=== PATIENT | male | born 1945 | race Caucasian/White ===

== ENCOUNTER 2018-01-06 13:34 | Inpatient (IN) | payer MEDICARE, OTHER ==
[~2018-01-06] VITALS: Ht 174 cm; Wt 71.0 kg
[2018-01-06 14:27] VITALS: BP 117/84
[2018-01-06] MEDS ORDERED: GLUCAGON 1 MG IM PRN (16:00)
[2018-01-06] MEDS ORDERED: LABETALOL 5MG/ML, 20ML IVPush PRN (16:00)
[2018-01-06] MEDS ORDERED: VANCOMYCIN PER PHARMACY MC PRN (16:00)
[2018-01-06] MEDS ORDERED: DOCUSATE 100 MG CAPSULE PO PRN (16:00)
[2018-01-06] MEDS ORDERED: BISACODYL 10 MG SUPP PR PRN (16:00)
[2018-01-06] MEDS ORDERED: POLYETHYLENE GLYCOL 17 GM PACKET PO PRN (16:00)
[2018-01-06] MEDS: PLEASE ENTER HEIGHT AND WEIGHT MC SCH ×2 (16:00→23:28)
[2018-01-06] MEDS ORDERED: DEXTROSE 50%, 50ML SYRINGE IVPush PRN (16:00)
[2018-01-06] MEDS: INSULIN LISPRO 100 UNITS/ML, PEN SQ-INSULIN SCH ×2 (16:00→22:28)
[2018-01-06] MEDS ORDERED: HYDROcodone/APAP 5/325 TABLET PO PRN (16:00)
[2018-01-06] MEDS ORDERED: SODIUM CHLORIDE 0.9% 1,000ML IVBOLUS ONE (16:00)
[2018-01-06] MEDS ORDERED: ONDANSETRON 2MG/ML, 2ML IVPush PRN (16:00)
[2018-01-06] MEDS: PLEASE ENTER ALLERGIES MC SCH ×2 (16:00→23:28)
[2018-01-06 16:24] LABS: MEAN CORPUSCULAR HEMOGLOBIN 32.5 pg (27.5-34.5); MEAN CORPUSCULAR HGB CONC 33.4 g/dL (33.2-36.2); MEAN CORPUSCULAR VOLUME 97.3 fL (81-97); MEAN PLATELET VOLUME 7.6 fL (7.4-10.4); PLATELET COUNT 229 x10^3/uL (130-400); RED BLOOD COUNT 3.63 x10^6/uL (4.38-5.82); RED CELL DISTRIBUTION WIDTH 13.4 % (9.4-14.8)
[2018-01-06 16:32] LABS: ANION GAP 5 mmol/L (5-15); CALCIUM 8.4 mg/dL (8.5-10.1); CHLORIDE 110 mmol/L (98-107); CREATININE 1.12 mg/dL (0.7-1.3)
[2018-01-06 16:42] LABS: BASOPHILS # (AUTO) 0.04 x10^3/uL (0-0.1); BASOPHILS % (AUTO) 0 % (0-1); EOSINOPHILS # (AUTO) 0.18 x10^3/uL (0-0.4); EOSINOPHILS % (AUTO) 1 % (1-7); LYMPHOCYTES # (AUTO) 1.05 x10^3/uL (1-3.4); LYMPHOCYTES % (AUTO) 6 % (22-44); MD SCAN; MONOCYTES # (AUTO) 1.84 x10^3/uL (0.2-0.8); MONOCYTES % (AUTO) 11 % (2-9); NEUTROPHILS # (AUTO) 14.32 x10^3/uL (1.8-6.8); NEUTROPHILS % (AUTO) 82 % (42-75)
[2018-01-06] MEDS ORDERED: PHARMACOKINETIC MONITORING MC PRN (17:00)
[2018-01-06] MEDS ORDERED: HEPARIN 25,000 UNITS/500ML PMX 500 ML IV PRN ×2 (17:00→18:19)
[2018-01-06] MEDS ORDERED: HEPARIN 5,000 UNITS/ML, 1ML IV ONE (17:00)
[2018-01-06] MEDS ORDERED: HEPARIN 5,000 UNITS/ML, 1ML IV PRN ×3 (17:00→18:20)
[2018-01-06] MEDS ORDERED: FURO-93 PO (17:01)
[2018-01-06] MEDS ORDERED: CHON400C PO (17:01)
[2018-01-06] MEDS ORDERED: VALS1TAB30 PO (17:01)
[2018-01-06] MEDS ORDERED: OMEG1CAP2 PO (17:01)
[2018-01-06] MEDS ORDERED: GLUC15006 PO (17:01)
[2018-01-06] MEDS ORDERED: MAGN400T26 PO (17:01)
[2018-01-06] MEDS ORDERED: ROSU10TA PO (17:01)
[2018-01-06] MEDS ORDERED: METH750T2 PO (17:01)
[2018-01-06] MEDS ORDERED: NAPR250T6 PO (17:01)
[2018-01-06] MEDS ORDERED: DOXY25TA18 PO (17:01)
[2018-01-06] MEDS ORDERED: MELA5TAB19 PO (17:01)
[2018-01-06] MEDS ORDERED: METO-99 PO (17:01)
[2018-01-06] MEDS ORDERED: LINA5TAB PO (17:01)
[2018-01-06] MEDS ORDERED: DICL100G19 TP (17:01)
[2018-01-06] MEDS ORDERED: RANI150T8 PO (17:01)
[2018-01-06] MEDS ORDERED: CALC300T5 PO (17:01)
[2018-01-06] MEDS ORDERED: OXYC-307 PO (17:01)
[2018-01-06] MEDS ORDERED: MULT-6 PO (17:01)
[2018-01-06] MEDS ORDERED: TROL85CR TP (17:03)
[2018-01-06 17:09] LABS: HCT (SEDRATE) 35.3 % (39.2-51.8)
[2018-01-06 17:32] LABS: HEMOGLOBIN A1C 8.9 % (4.2-6.3)
[2018-01-06] MEDS ORDERED: VANCOMYCIN 1,300 MG in SODIUM CHLORIDE 0.9% 250 ML IV SCH (18:00)
[2018-01-06] MEDS ORDERED: CALCIUM CARBONATE 500 MG TAB.CHEW PO PRN (18:30)
[2018-01-06] MEDS: OXYcodone/APAP 10/325MG TABLET PO PRN (18:45)
[2018-01-06] MEDS: SODIUM CHLORIDE 0.9% 1,000 ML IV SCH (19:59)
[2018-01-06] MEDS: PIPERACILLIN/TAZO/PMX 3.375GM 50 ML IV SCH (19:59)
[2018-01-06] MEDS ORDERED: CHONDROITIN SULFATE A SODIUM 1200 MG PO SCH (21:00)
[2018-01-06] MEDS: SODIUM CHLORIDE FLUSH 10ML SYR IVF SCH (21:00)
[2018-01-06 21:13] VITALS: BP 155/82
[2018-01-07] MEDS: MELATONIN 5 MG TABLET PO PRN ×2 (00:16→20:54)
[2018-01-07] MEDS: OXYcodone/APAP 10/325MG TABLET PO PRN ×3 (00:37→09:38)
[2018-01-07] MEDS ORDERED: DIPHENHYDRAMINE 25 MG CAPSULE PO ONE (01:00)
[2018-01-07 01:41] VITALS: BP 147/77
[2018-01-07] MEDS: PIPERACILLIN/TAZO/PMX 3.375GM 50 ML IV SCH ×4 (02:29→22:53)
[2018-01-07] MEDS ORDERED: HEPARIN 5,000 UNITS/ML, 1ML IV ONE (02:30)
[2018-01-07] MEDS ORDERED: HEPARIN 25,000 UNITS/500ML PMX 500 ML IV PRN (02:30)
[2018-01-07] MEDS ORDERED: HEPARIN 5,000 UNITS/ML, 1ML IV PRN (02:30)
[2018-01-07 02:43] LABS: MEAN CORPUSCULAR HEMOGLOBIN 32.4 pg (27.5-34.5); MEAN CORPUSCULAR HGB CONC 33.4 g/dL (33.2-36.2); MEAN CORPUSCULAR VOLUME 97.1 fL (81-97); MEAN PLATELET VOLUME 7.3 fL (7.4-10.4); PLATELET COUNT 223 x10^3/uL (130-400); RED BLOOD COUNT 3.33 x10^6/uL (4.38-5.82); RED CELL DISTRIBUTION WIDTH 13.6 % (9.4-14.8)
[2018-01-07 02:53] LABS: ALANINE AMINOTRANSFERASE 22 U/L (12-78); ALBUMIN 2.1 g/dL (3.4-5.0); ANION GAP 9 mmol/L (5-15); CALCIUM 8.1 mg/dL (8.5-10.1); CHLORIDE 112 mmol/L (98-107); CREATININE 0.98 mg/dL (0.7-1.3)
[2018-01-07 02:55] LABS: ALKALINE PHOSPHATASE 61 U/L (45-117); BILIRUBIN,TOTAL 0.4 mg/dL (0.2-1.0); TOTAL PROTEIN 5.9 g/dL (6.4-8.2)
[2018-01-07 03:20] LABS: BASOPHILS # (AUTO) 0.08 x10^3/uL (0-0.1); BASOPHILS % (AUTO) 1 % (0-1); EOSINOPHILS # (AUTO) 0.21 x10^3/uL (0-0.4); EOSINOPHILS % (AUTO) 1 % (1-7); LYMPHOCYTES # (AUTO) 0.84 x10^3/uL (1-3.4); LYMPHOCYTES % (AUTO) 5 % (22-44); MD SCAN; MONOCYTES # (AUTO) 1.48 x10^3/uL (0.2-0.8); MONOCYTES % (AUTO) 10 % (2-9); NEUTROPHILS # (AUTO) 13.06 x10^3/uL (1.8-6.8); NEUTROPHILS % (AUTO) 83 % (42-75)
[2018-01-07] MEDS ORDERED: LIDOCAINE 2%, 20ML ONE (06:59)
[2018-01-07] MEDS: INSULIN LISPRO 100 UNITS/ML, PEN SQ-INSULIN SCH ×4 (07:00→20:57)
[2018-01-07] MEDS ORDERED: HEPARIN 1,000 UNITS/ML, 10ML ONE (07:18)
[2018-01-07] MEDS ORDERED: NITROGLYCERIN 5 MG/ML, 10ML ONE (07:18)
[2018-01-07] MEDS ORDERED: NALOXONE 1 MG/ML, 2ML ONE (07:18)
[2018-01-07] MEDS ORDERED: PROTAMINE SULFATE 10 MG/ML, 25ML ONE (07:18)
[2018-01-07] MEDS ORDERED: FENTANYL PF 100 MCG/2ML ONE (07:18)
[2018-01-07] MEDS: PLEASE ENTER ALLERGIES MC SCH (08:00)
[2018-01-07] MEDS: PLEASE ENTER HEIGHT AND WEIGHT MC SCH (08:00)
[2018-01-07 08:08] VITALS: BP 122/70
[2018-01-07] MEDS ORDERED: ALTEPLASE 10 MG in SODIUM CHLORIDE 0.9% 90 ML IV SCH (08:30)
[2018-01-07] MEDS: METOPROLOL TARTRATE 100 MG TABLET PO SCH (09:38)
[2018-01-07] MEDS: MULTIVITAMIN 1 TABLET PO SCH (09:38)
[2018-01-07] MEDS: MAGNESIUM OXIDE 400 MG TABLET PO SCH (09:38)
[2018-01-07] MEDS: SODIUM CHLORIDE FLUSH 10ML SYR IVF SCH ×2 (09:42→20:54)
[2018-01-07] MEDS ORDERED: FAMOTIDINE 20 MG TABLET PO PRN ×2 (10:30)
[2018-01-07] MEDS ORDERED: HEPARIN 25,000 UNITS/500ML PMX 500 ML IV SCH (10:30)
[2018-01-07] MEDS: VALSARTAN 320 MG TABLET PO SCH (11:17)
[2018-01-07] MEDS: SODIUM CHLORIDE 0.9% 1,000 ML IV SCH ×2 (11:18→23:56)
[2018-01-07] MEDS: HYDROCHLOROTHIAZIDE 25 MG TABLET PO SCH (11:18)
[2018-01-07] MEDS: OXYcodone IR 5MG TABLET PO PRN ×2 (11:37→16:36)
[2018-01-07 11:59] LABS: MEAN CORPUSCULAR HEMOGLOBIN 32.5 pg (27.5-34.5); MEAN CORPUSCULAR VOLUME 98.3 fL (81-97); MEAN PLATELET VOLUME 7.4 fL (7.4-10.4); PLATELET COUNT 229 x10^3/uL (130-400); RED BLOOD COUNT 3.45 x10^6/uL (4.38-5.82); RED CELL DISTRIBUTION WIDTH 13.6 % (9.4-14.8)
[2018-01-07 12:51] LABS: BASOPHILS # (AUTO) 0.01 x10^3/uL (0-0.1); BASOPHILS % (AUTO) 0 % (0-1); EOSINOPHILS # (AUTO) 0.25 x10^3/uL (0-0.4); EOSINOPHILS % (AUTO) 2 % (1-7); LYMPHOCYTES # (AUTO) 1.21 x10^3/uL (1-3.4); LYMPHOCYTES % (AUTO) 8 % (22-44); MD SCAN; MONOCYTES # (AUTO) 1.63 x10^3/uL (0.2-0.8); MONOCYTES % (AUTO) 10 % (2-9); NEUTROPHILS # (AUTO) 12.93 x10^3/uL (1.8-6.8); NEUTROPHILS % (AUTO) 81 % (42-75)
[2018-01-07 16:08] LABS: MEAN CORPUSCULAR HEMOGLOBIN 32.4 pg (27.5-34.5); MEAN CORPUSCULAR HGB CONC 33.3 g/dL (33.2-36.2); MEAN CORPUSCULAR VOLUME 97.2 fL (81-97); MEAN PLATELET VOLUME 7.6 fL (7.4-10.4); PLATELET COUNT 238 x10^3/uL (130-400); RED BLOOD COUNT 3.42 x10^6/uL (4.38-5.82)
[2018-01-07 16:33] LABS: BASOPHILS # (AUTO) 0.04 x10^3/uL (0-0.1); BASOPHILS % (AUTO) 0 % (0-1); EOSINOPHILS # (AUTO) 0.29 x10^3/uL (0-0.4); EOSINOPHILS % (AUTO) 2 % (1-7); LYMPHOCYTES # (AUTO) 1.41 x10^3/uL (1-3.4); LYMPHOCYTES % (AUTO) 9 % (22-44); MD SCAN; MONOCYTES # (AUTO) 1.25 x10^3/uL (0.2-0.8); MONOCYTES % (AUTO) 8 % (2-9); NEUTROPHILS % (AUTO) 81 % (42-75)
[2018-01-07] MEDS: ALTEPLASE 10 MG in SODIUM CHLORIDE 0.9% 90 ML IV SCH (16:36)
[2018-01-07] MEDS ORDERED: MORPHINE SULFATE 4 MG/ML, 1ML ONE (18:21)
[2018-01-07] MEDS: MORPHINE SULFATE 4 MG/ML, 1ML IVPush PRN ×2 (18:29→21:38)
[2018-01-07] MEDS ORDERED: morphine SULFATE 10 MG/ML, 1ML IVPush PRN (18:30)
[2018-01-07] MEDS: ATORVASTATIN 20 MG TABLET PO SCH (20:54)
[2018-01-07] MEDS ORDERED: VANCOMYCIN 1,300 MG in SODIUM CHLORIDE 0.9% 250 ML IV SCH (21:00)
[2018-01-07 21:22] LABS: MEAN CORPUSCULAR HEMOGLOBIN 32.9 pg (27.5-34.5); MEAN CORPUSCULAR HGB CONC 33.9 g/dL (33.2-36.2); MEAN CORPUSCULAR VOLUME 97.2 fL (81-97); MEAN PLATELET VOLUME 7.7 fL (7.4-10.4); PLATELET COUNT 252 x10^3/uL (130-400); RED BLOOD COUNT 3.73 x10^6/uL (4.38-5.82); RED CELL DISTRIBUTION WIDTH 13.9 % (9.4-14.8)
[2018-01-07 21:38] LABS: BASOPHILS # (AUTO) 0.06 x10^3/uL (0-0.1); BASOPHILS % (AUTO) 0 % (0-1); EOSINOPHILS # (AUTO) 0.29 x10^3/uL (0-0.4); EOSINOPHILS % (AUTO) 2 % (1-7); LYMPHOCYTES # (AUTO) 1.28 x10^3/uL (1-3.4); LYMPHOCYTES % (AUTO) 8 % (22-44); MD SCAN; MONOCYTES # (AUTO) 1.45 x10^3/uL (0.2-0.8); MONOCYTES % (AUTO) 9 % (2-9); NEUTROPHILS # (AUTO) 12.86 x10^3/uL (1.8-6.8); NEUTROPHILS % (AUTO) 81 % (42-75)
[2018-01-07] MEDS: METHOCARBAMOL 750 MG TABLET PO PRN (22:11)
[2018-01-08] MEDS: OXYcodone IR 5MG TABLET PO PRN ×4 (00:49→19:45)
[2018-01-08] MEDS: ALTEPLASE 10 MG in SODIUM CHLORIDE 0.9% 90 ML IV SCH ×3 (02:13→23:00)
[2018-01-08 03:12] LABS: MEAN CORPUSCULAR HEMOGLOBIN 32.4 pg (27.5-34.5); MEAN CORPUSCULAR HGB CONC 33.5 g/dL (33.2-36.2); MEAN CORPUSCULAR VOLUME 96.8 fL (81-97); MEAN PLATELET VOLUME 7.4 fL (7.4-10.4); PLATELET COUNT 245 x10^3/uL (130-400); RED BLOOD COUNT 3.48 x10^6/uL (4.38-5.82); RED CELL DISTRIBUTION WIDTH 13.1 % (9.4-14.8)
[2018-01-08 04:07] LABS: MD YES
[2018-01-08 04:10] LABS: ANISOCYTOSIS 1+; BAND#(MANUAL) 0.15 x10^3/uL; BANDS%(MANUAL) 1 % (0-7); EOS#(MANUAL) 0.15 x10^3/uL (0.0-0.4); EOS% (MANUAL) 1 % (1-7); LYMPH#(MANUAL) 0.77 x10^3/uL (1-3.4); LYMPHS% (MANUAL) 5 % (22-44); MONOS#(MANUAL) 1.08 x10^3/uL (0.3-2.7); MONOS% (MANUAL) 7 % (2-9); POLYCHROMASIA 1+; SEG#(MANUAL) 13.24 x10^3/uL (1.8-6.8); SEGS% (MANUAL) 86 % (42-75)
[2018-01-08 04:11] LABS: <PLATELET ESTIMATE> ADEQUATE; <PLT MORPHOLOGY> NORMAL PLT MORPH
[2018-01-08] MEDS: PIPERACILLIN/TAZO/PMX 3.375GM 50 ML IV SCH ×2 (04:51→14:46)
[2018-01-08 05:00] VITALS: BP 137/63
[2018-01-08] MEDS: INSULIN LISPRO 100 UNITS/ML, PEN SQ-INSULIN SCH ×4 (06:15→21:00)
[2018-01-08] MEDS ORDERED: MIDAZOLAM 1 MG/ML, 5ML ONE (07:17)
[2018-01-08] MEDS ORDERED: FENTANYL PF 100 MCG/2ML ONE (07:17)
[2018-01-08] MEDS ORDERED: NITROGLYCERIN 5 MG/ML, 10ML ONE (07:17)
[2018-01-08] MEDS ORDERED: PROTAMINE SULFATE 10 MG/ML, 25ML ONE (07:18)
[2018-01-08] MEDS ORDERED: HEPARIN 1,000 UNITS/ML, 10ML ONE (07:18)
[2018-01-08 08:58] VITALS: BP 137/77
[2018-01-08] MEDS: METHOCARBAMOL 750 MG TABLET PO PRN ×2 (09:27→22:30)
[2018-01-08 09:43] LABS: MEAN CORPUSCULAR HEMOGLOBIN 32.6 pg (27.5-34.5); MEAN CORPUSCULAR HGB CONC 33.7 g/dL (33.2-36.2); MEAN CORPUSCULAR VOLUME 96.9 fL (81-97); MEAN PLATELET VOLUME 7.4 fL (7.4-10.4); PLATELET COUNT 245 x10^3/uL (130-400); RED BLOOD COUNT 3.53 x10^6/uL (4.38-5.82); RED CELL DISTRIBUTION WIDTH 13.6 % (9.4-14.8)
[2018-01-08] MEDS: VALSARTAN 320 MG TABLET PO SCH (10:04)
[2018-01-08] MEDS: MULTIVITAMIN 1 TABLET PO SCH (10:04)
[2018-01-08] MEDS: MAGNESIUM OXIDE 400 MG TABLET PO SCH (10:05)
[2018-01-08] MEDS: HYDROCHLOROTHIAZIDE 25 MG TABLET PO SCH (10:05)
[2018-01-08] MEDS: METOPROLOL TARTRATE 100 MG TABLET PO SCH (10:07)
[2018-01-08] MEDS: SODIUM CHLORIDE FLUSH 10ML SYR IVF SCH ×2 (10:08→19:45)
[2018-01-08 10:14] LABS: BASOPHILS # (AUTO) 0.01 x10^3/uL (0-0.1); BASOPHILS % (AUTO) 0 % (0-1); EOSINOPHILS # (AUTO) 0.28 x10^3/uL (0-0.4); EOSINOPHILS % (AUTO) 2 % (1-7); LYMPHOCYTES # (AUTO) 1.14 x10^3/uL (1-3.4); LYMPHOCYTES % (AUTO) 8 % (22-44); MD SCAN; MONOCYTES # (AUTO) 1.52 x10^3/uL (0.2-0.8); MONOCYTES % (AUTO) 10 % (2-9); NEUTROPHILS # (AUTO) 12.18 x10^3/uL (1.8-6.8); NEUTROPHILS % (AUTO) 81 % (42-75)
[2018-01-08] MEDS: MORPHINE SULFATE 4 MG/ML, 1ML IVPush PRN (11:50)
[2018-01-08 13:25] VITALS: BP 151/75
[2018-01-08 14:00] LABS: BASOPHILS # (AUTO) 0.01 x10^3/uL (0-0.1); BASOPHILS % (AUTO) 0 % (0-1); EOSINOPHILS # (AUTO) 0.26 x10^3/uL (0-0.4); EOSINOPHILS % (AUTO) 2 % (1-7); LYMPHOCYTES # (AUTO) 0.88 x10^3/uL (1-3.4); LYMPHOCYTES % (AUTO) 6 % (22-44); MD NO; MEAN CORPUSCULAR HEMOGLOBIN 32.7 pg (27.5-34.5); MEAN CORPUSCULAR HGB CONC 33.4 g/dL (33.2-36.2); MEAN PLATELET VOLUME 7.3 fL (7.4-10.4); MONOCYTES # (AUTO) 1.42 x10^3/uL (0.2-0.8); MONOCYTES % (AUTO) 9 % (2-9); NEUTROPHILS # (AUTO) 12.79 x10^3/uL (1.8-6.8); NEUTROPHILS % (AUTO) 83 % (42-75); PLATELET COUNT 269 x10^3/uL (130-400); RED BLOOD COUNT 3.52 x10^6/uL (4.38-5.82); RED CELL DISTRIBUTION WIDTH 13.7 % (9.4-14.8)
[2018-01-08] MEDS ORDERED: CLOPIDOGREL 75 MG TABLET PO ONE (16:30)
[2018-01-08] MEDS: ATORVASTATIN 20 MG TABLET PO SCH (19:45)
[2018-01-08 19:46] VITALS: BP 133/74
[2018-01-08 21:23] LABS: MEAN CORPUSCULAR HEMOGLOBIN 32.8 pg (27.5-34.5); MEAN CORPUSCULAR HGB CONC 33.5 g/dL (33.2-36.2); MEAN CORPUSCULAR VOLUME 97.8 fL (81-97); MEAN PLATELET VOLUME 7.7 fL (7.4-10.4); PLATELET COUNT 278 x10^3/uL (130-400); RED BLOOD COUNT 3.55 x10^6/uL (4.38-5.82); RED CELL DISTRIBUTION WIDTH 13.4 % (9.4-14.8)
[2018-01-08 21:52] LABS: BASOPHILS # (AUTO) 0.01 x10^3/uL (0-0.1); BASOPHILS % (AUTO) 0 % (0-1); EOSINOPHILS # (AUTO) 0.22 x10^3/uL (0-0.4); EOSINOPHILS % (AUTO) 1 % (1-7); LYMPHOCYTES # (AUTO) 0.88 x10^3/uL (1-3.4); LYMPHOCYTES % (AUTO) 6 % (22-44); MONOCYTES # (AUTO) 1.56 x10^3/uL (0.2-0.8); MONOCYTES % (AUTO) 10 % (2-9); NEUTROPHILS # (AUTO) 13.51 x10^3/uL (1.8-6.8); NEUTROPHILS % (AUTO) 84 % (42-75)
[2018-01-08 21:53] LABS: MD NO
[2018-01-08] MEDS: MELATONIN 5 MG TABLET PO PRN (22:00)
[2018-01-09 01:55] VITALS: BP 152/81
[2018-01-09] MEDS: OXYcodone IR 5MG TABLET PO PRN ×5 (02:06→20:21)
[2018-01-09 03:06] LABS: MEAN CORPUSCULAR HEMOGLOBIN 32.9 pg (27.5-34.5); MEAN CORPUSCULAR HGB CONC 33.5 g/dL (33.2-36.2); MEAN CORPUSCULAR VOLUME 98.1 fL (81-97); MEAN PLATELET VOLUME 7.3 fL (7.4-10.4); PLATELET COUNT 278 x10^3/uL (130-400); RED CELL DISTRIBUTION WIDTH 13.6 % (9.4-14.8)
[2018-01-09 03:16] LABS: ANION GAP 9 mmol/L (5-15); CALCIUM 8.1 mg/dL (8.5-10.1); CHLORIDE 109 mmol/L (98-107)
[2018-01-09 03:19] LABS: ALANINE AMINOTRANSFERASE 28 U/L (12-78); ALKALINE PHOSPHATASE 78 U/L (45-117); BILIRUBIN,TOTAL 0.3 mg/dL (0.2-1.0); CREATININE 1.19 mg/dL (0.7-1.3); TOTAL PROTEIN 6.2 g/dL (6.4-8.2)
[2018-01-09 03:46] LABS: BASOPHILS # (AUTO) 0.04 x10^3/uL (0-0.1); BASOPHILS % (AUTO) 0 % (0-1); EOSINOPHILS # (AUTO) 0.31 x10^3/uL (0-0.4); EOSINOPHILS % (AUTO) 2 % (1-7); LYMPHOCYTES # (AUTO) 1.03 x10^3/uL (1-3.4); LYMPHOCYTES % (AUTO) 6 % (22-44); MD SCAN; MONOCYTES # (AUTO) 1.35 x10^3/uL (0.2-0.8); MONOCYTES % (AUTO) 8 % (2-9); NEUTROPHILS # (AUTO) 13.34 x10^3/uL (1.8-6.8); NEUTROPHILS % (AUTO) 83 % (42-75)
[2018-01-09 06:20] VITALS: BP 144/75
[2018-01-09] MEDS: INSULIN LISPRO 100 UNITS/ML, PEN SQ-INSULIN SCH ×4 (06:20→20:21)
[2018-01-09 08:08] VITALS: BP 153/82
[2018-01-09] MEDS: MULTIVITAMIN 1 TABLET PO SCH (08:24)
[2018-01-09] MEDS: VALSARTAN 320 MG TABLET PO SCH (08:24)
[2018-01-09] MEDS: HYDROCHLOROTHIAZIDE 25 MG TABLET PO SCH (08:24)
[2018-01-09] MEDS: METOPROLOL TARTRATE 100 MG TABLET PO SCH (08:24)
[2018-01-09] MEDS: MAGNESIUM OXIDE 400 MG TABLET PO SCH (08:25)
[2018-01-09] MEDS: SODIUM CHLORIDE FLUSH 10ML SYR IVF SCH ×2 (08:26→20:22)
[2018-01-09 08:47] LABS: MEAN CORPUSCULAR HEMOGLOBIN 32.4 pg (27.5-34.5); MEAN CORPUSCULAR HGB CONC 33.2 g/dL (33.2-36.2); MEAN CORPUSCULAR VOLUME 97.8 fL (81-97); MEAN PLATELET VOLUME 7.2 fL (7.4-10.4); PLATELET COUNT 336 x10^3/uL (130-400); RED BLOOD COUNT 3.93 x10^6/uL (4.38-5.82); RED CELL DISTRIBUTION WIDTH 13.4 % (9.4-14.8)
[2018-01-09 09:11] LABS: BASOPHILS # (AUTO) 0.04 x10^3/uL (0-0.1); BASOPHILS % (AUTO) 0 % (0-1); EOSINOPHILS # (AUTO) 0.41 x10^3/uL (0-0.4); EOSINOPHILS % (AUTO) 2 % (1-7); LYMPHOCYTES # (AUTO) 1.17 x10^3/uL (1-3.4); LYMPHOCYTES % (AUTO) 6 % (22-44); MONOCYTES # (AUTO) 1.49 x10^3/uL (0.2-0.8); MONOCYTES % (AUTO) 8 % (2-9); NEUTROPHILS # (AUTO) 15.86 x10^3/uL (1.8-6.8); NEUTROPHILS % (AUTO) 84 % (42-75)
[2018-01-09 09:12] LABS: MD SCAN
[2018-01-09 12:58] VITALS: BP 118/59
[2018-01-09] MEDS: CLOPIDOGREL 75 MG TABLET PO SCH (13:00)
[2018-01-09 15:05] LABS: MEAN CORPUSCULAR HEMOGLOBIN 33.1 pg (27.5-34.5); MEAN CORPUSCULAR HGB CONC 33.8 g/dL (33.2-36.2); MEAN PLATELET VOLUME 7.6 fL (7.4-10.4); PLATELET COUNT 314 x10^3/uL (130-400); RED BLOOD COUNT 3.51 x10^6/uL (4.38-5.82); RED CELL DISTRIBUTION WIDTH 13.5 % (9.4-14.8)
[2018-01-09 15:10] LABS: MD YES
[2018-01-09 15:43] LABS: BAND#(MANUAL) 0.18 x10^3/uL; BANDS%(MANUAL) 1 % (0-7); EOS#(MANUAL) 0.54 x10^3/uL (0.0-0.4); EOS% (MANUAL) 3 % (1-7); LYMPH#(MANUAL) 1.09 x10^3/uL (1-3.4); LYMPHS% (MANUAL) 6 % (22-44); MONOS#(MANUAL) 1.09 x10^3/uL (0.3-2.7); MONOS% (MANUAL) 6 % (2-9); SEGS% (MANUAL) 84 % (42-75)
[2018-01-09 15:44] LABS: <PLATELET ESTIMATE> ADEQUATE; <PLT MORPHOLOGY> NORMAL PLT MORPH; <RBC MORPHOLOGY> NORMAL
[2018-01-09] MEDS ORDERED: MAGNESIUM SULFATE PMX 2GM/50ML 50 ML IV ONE (16:30)
[2018-01-09] MEDS: HEPARIN 5,000 UNITS/ML, 1ML SQ SCH (17:59)
[2018-01-09 18:58] VITALS: BP 120/64
[2018-01-09] MEDS: ATORVASTATIN 20 MG TABLET PO SCH (20:21)
[2018-01-09 20:56] LABS: MEAN CORPUSCULAR HEMOGLOBIN 32.9 pg (27.5-34.5); MEAN CORPUSCULAR HGB CONC 33.7 g/dL (33.2-36.2); MEAN CORPUSCULAR VOLUME 97.4 fL (81-97); MEAN PLATELET VOLUME 7.6 fL (7.4-10.4); PLATELET COUNT 324 x10^3/uL (130-400); RED BLOOD COUNT 3.45 x10^6/uL (4.38-5.82); RED CELL DISTRIBUTION WIDTH 13.6 % (9.4-14.8)
[2018-01-09 21:14] LABS: BASOPHILS # (AUTO) 0.03 x10^3/uL (0-0.1); BASOPHILS % (AUTO) 0 % (0-1); EOSINOPHILS % (AUTO) 2 % (1-7); LYMPHOCYTES # (AUTO) 0.98 x10^3/uL (1-3.4); LYMPHOCYTES % (AUTO) 6 % (22-44); MD SCAN; MONOCYTES # (AUTO) 1.29 x10^3/uL (0.2-0.8); MONOCYTES % (AUTO) 8 % (2-9); NEUTROPHILS # (AUTO) 14.28 x10^3/uL (1.8-6.8); NEUTROPHILS % (AUTO) 85 % (42-75)
[2018-01-09] MEDS: MELATONIN 5 MG TABLET PO PRN (22:44)
[2018-01-09] MEDS: METHOCARBAMOL 750 MG TABLET PO PRN (22:44)
[2018-01-10 01:53] VITALS: BP 129/72
[2018-01-10] MEDS: HEPARIN 5,000 UNITS/ML, 1ML SQ SCH ×3 (01:56→17:14)
[2018-01-10] MEDS: OXYcodone IR 5MG TABLET PO PRN ×4 (01:56→20:52)
[2018-01-10 03:17] LABS: MEAN CORPUSCULAR HEMOGLOBIN 32.4 pg (27.5-34.5); MEAN CORPUSCULAR HGB CONC 33.5 g/dL (33.2-36.2); MEAN CORPUSCULAR VOLUME 96.6 fL (81-97); MEAN PLATELET VOLUME 7.6 fL (7.4-10.4); PLATELET COUNT 332 x10^3/uL (130-400); RED BLOOD COUNT 3.57 x10^6/uL (4.38-5.82); RED CELL DISTRIBUTION WIDTH 13.4 % (9.4-14.8)
[2018-01-10 03:29] LABS: ANION GAP 8 mmol/L (5-15); CALCIUM 8.1 mg/dL (8.5-10.1); CHLORIDE 107 mmol/L (98-107)
[2018-01-10 03:33] LABS: ALANINE AMINOTRANSFERASE 28 U/L (12-78); ALKALINE PHOSPHATASE 73 U/L (45-117); BILIRUBIN,TOTAL 0.4 mg/dL (0.2-1.0); CREATININE 1.01 mg/dL (0.7-1.3); TOTAL PROTEIN 6.3 g/dL (6.4-8.2)
[2018-01-10 03:42] LABS: BASOPHILS # (AUTO) 0.03 x10^3/uL (0-0.1); BASOPHILS % (AUTO) 0 % (0-1); EOSINOPHILS # (AUTO) 0.46 x10^3/uL (0-0.4); EOSINOPHILS % (AUTO) 3 % (1-7); LYMPHOCYTES # (AUTO) 1.15 x10^3/uL (1-3.4); LYMPHOCYTES % (AUTO) 6 % (22-44); MD SCAN; MONOCYTES # (AUTO) 1.39 x10^3/uL (0.2-0.8); MONOCYTES % (AUTO) 8 % (2-9); NEUTROPHILS % (AUTO) 84 % (42-75)
[2018-01-10] MEDS: ACETAMINOPHEN 325 MG TABLET PO PRN ×2 (03:43→13:34)
[2018-01-10] MEDS: INSULIN LISPRO 100 UNITS/ML, PEN SQ-INSULIN SCH ×4 (06:25→21:32)
[2018-01-10 06:35] VITALS: BP 119/71
[2018-01-10] MEDS: MULTIVITAMIN 1 TABLET PO SCH (08:12)
[2018-01-10] MEDS: HYDROCHLOROTHIAZIDE 25 MG TABLET PO SCH (08:12)
[2018-01-10] MEDS: MAGNESIUM OXIDE 400 MG TABLET PO SCH (08:18)
[2018-01-10] MEDS: VALSARTAN 320 MG TABLET PO SCH (08:18)
[2018-01-10] MEDS: METOPROLOL TARTRATE 100 MG TABLET PO SCH (08:19)
[2018-01-10] MEDS: SODIUM CHLORIDE FLUSH 10ML SYR IVF SCH ×2 (08:19→21:25)
[2018-01-10 09:08] LABS: MEAN CORPUSCULAR HEMOGLOBIN 32.5 pg (27.5-34.5); MEAN CORPUSCULAR HGB CONC 33.3 g/dL (33.2-36.2); MEAN CORPUSCULAR VOLUME 97.7 fL (81-97); MEAN PLATELET VOLUME 7.7 fL (7.4-10.4); PLATELET COUNT 357 x10^3/uL (130-400); RED BLOOD COUNT 3.87 x10^6/uL (4.38-5.82); RED CELL DISTRIBUTION WIDTH 13.6 % (9.4-14.8)
[2018-01-10 09:38] LABS: BASOPHILS # (AUTO) 0.02 x10^3/uL (0-0.1); BASOPHILS % (AUTO) 0 % (0-1); EOSINOPHILS # (AUTO) 0.53 x10^3/uL (0-0.4); EOSINOPHILS % (AUTO) 3 % (1-7); LYMPHOCYTES # (AUTO) 1.03 x10^3/uL (1-3.4); LYMPHOCYTES % (AUTO) 5 % (22-44); MD SCAN; MONOCYTES # (AUTO) 1.35 x10^3/uL (0.2-0.8); MONOCYTES % (AUTO) 7 % (2-9); NEUTROPHILS # (AUTO) 16.24 x10^3/uL (1.8-6.8); NEUTROPHILS % (AUTO) 85 % (42-75)
[2018-01-10] MEDS: METHOCARBAMOL 750 MG TABLET PO PRN ×2 (11:29→23:50)
[2018-01-10 13:29] VITALS: BP 118/66
[2018-01-10] MEDS: CLOPIDOGREL 75 MG TABLET PO SCH (13:34)
[2018-01-10 15:16] LABS: MEAN CORPUSCULAR HGB CONC 33.2 g/dL (33.2-36.2); MEAN CORPUSCULAR VOLUME 96.3 fL (81-97); MEAN PLATELET VOLUME 7.6 fL (7.4-10.4); PLATELET COUNT 365 x10^3/uL (130-400); RED BLOOD COUNT 3.72 x10^6/uL (4.38-5.82); RED CELL DISTRIBUTION WIDTH 13.5 % (9.4-14.8)
[2018-01-10 16:05] LABS: MD YES
[2018-01-10 16:07] LABS: EOS#(MANUAL) 0.61 x10^3/uL (0.0-0.4); EOS% (MANUAL) 3 % (1-7); LYMPH#(MANUAL) 1.21 x10^3/uL (1-3.4); LYMPHS% (MANUAL) 6 % (22-44); METAMYELOCYTES% (MANUAL) 1 % (0-1); MONOS#(MANUAL) 1.41 x10^3/uL (0.3-2.7); MONOS% (MANUAL) 7 % (2-9); SEG#(MANUAL) 16.77 x10^3/uL (1.8-6.8); SEGS% (MANUAL) 83 % (42-75)
[2018-01-10 16:09] LABS: <PLATELET ESTIMATE> ADEQUATE; <PLT MORPHOLOGY> NORMAL PLT MORPH; <RBC MORPHOLOGY> NORMAL
[2018-01-10 20:54] VITALS: BP 144/75
[2018-01-10 21:00] LABS: MEAN PLATELET VOLUME 7.7 fL (7.4-10.4); PLATELET COUNT 376 x10^3/uL (130-400); RED BLOOD COUNT 3.56 x10^6/uL (4.38-5.82); RED CELL DISTRIBUTION WIDTH 13.6 % (9.4-14.8)
[2018-01-10 21:25] LABS: MD YES
[2018-01-10] MEDS: ATORVASTATIN 20 MG TABLET PO SCH (21:25)
[2018-01-10 21:28] LABS: BAND#(MANUAL) 0.18 x10^3/uL; BANDS%(MANUAL) 1 % (0-7); BASOS#(MANUAL) 0.18 x10^3/uL (0-0.1); BASOS% (MANUAL) 1 % (0-1); EOS#(MANUAL) 0.55 x10^3/uL (0.0-0.4); EOS% (MANUAL) 3 % (1-7); LYMPH#(MANUAL) 1.28 x10^3/uL (1-3.4); LYMPHS% (MANUAL) 7 % (22-44); MONOS#(MANUAL) 0.55 x10^3/uL (0.3-2.7); MONOS% (MANUAL) 3 % (2-9); SEG#(MANUAL) 15.56 x10^3/uL (1.8-6.8); SEGS% (MANUAL) 85 % (42-75)
[2018-01-10 21:29] LABS: <PLATELET ESTIMATE> ADEQUATE; <PLT MORPHOLOGY> NORMAL PLT MORPH; POLYCHROMASIA 1+
[2018-01-11] MEDS: HEPARIN 5,000 UNITS/ML, 1ML SQ SCH ×3 (01:42→15:43)
[2018-01-11 01:52] VITALS: BP 145/73
[2018-01-11] MEDS: OXYcodone IR 5MG TABLET PO PRN ×4 (04:04→22:36)
[2018-01-11 06:42] VITALS: BP 138/50
[2018-01-11] MEDS: MAGNESIUM OXIDE 400 MG TABLET PO SCH (07:55)
[2018-01-11] MEDS: VALSARTAN 320 MG TABLET PO SCH (07:55)
[2018-01-11] MEDS: MULTIVITAMIN 1 TABLET PO SCH (07:55)
[2018-01-11] MEDS: METOPROLOL TARTRATE 100 MG TABLET PO SCH (07:57)
[2018-01-11] MEDS: HYDROCHLOROTHIAZIDE 25 MG TABLET PO SCH (07:57)
[2018-01-11] MEDS: INSULIN LISPRO 100 UNITS/ML, PEN SQ-INSULIN SCH ×4 (07:58→21:01)
[2018-01-11] MEDS: SODIUM CHLORIDE FLUSH 10ML SYR IVF SCH ×2 (08:06→20:51)
[2018-01-11] MEDS: METHOCARBAMOL 750 MG TABLET PO PRN ×2 (10:49→23:33)
[2018-01-11] MEDS: CLOPIDOGREL 75 MG TABLET PO SCH (12:36)
[2018-01-11 12:58] VITALS: BP 118/71
[2018-01-11] MEDS: ACETAMINOPHEN 325 MG TABLET PO PRN (14:47)
[2018-01-11] MEDS: ATORVASTATIN 20 MG TABLET PO SCH (20:50)
[2018-01-11 20:55] VITALS: BP 150/86
[2018-01-12 01:31] VITALS: BP 161/71
[2018-01-12] MEDS: HEPARIN 5,000 UNITS/ML, 1ML SQ SCH ×3 (01:52→16:09)
[2018-01-12] MEDS: OXYcodone IR 5MG TABLET PO PRN ×3 (04:35→19:11)
[2018-01-12 07:28] VITALS: BP 131/74
[2018-01-12] MEDS: INSULIN LISPRO 100 UNITS/ML, PEN SQ-INSULIN SCH ×4 (08:20→21:00)
[2018-01-12] MEDS: MAGNESIUM OXIDE 400 MG TABLET PO SCH (08:20)
[2018-01-12] MEDS: MULTIVITAMIN 1 TABLET PO SCH (08:21)
[2018-01-12] MEDS: HYDROCHLOROTHIAZIDE 25 MG TABLET PO SCH (08:21)
[2018-01-12] MEDS: VALSARTAN 320 MG TABLET PO SCH (08:21)
[2018-01-12] MEDS: METOPROLOL TARTRATE 100 MG TABLET PO SCH (08:21)
[2018-01-12] MEDS: SODIUM CHLORIDE FLUSH 10ML SYR IVF SCH ×2 (08:22→21:24)
[2018-01-12] MEDS: ACETAMINOPHEN 325 MG TABLET PO PRN ×2 (08:37→20:32)
[2018-01-12 09:17] LABS: MEAN CORPUSCULAR HEMOGLOBIN 32.4 pg (27.5-34.5); MEAN CORPUSCULAR HGB CONC 33.5 g/dL (33.2-36.2); MEAN CORPUSCULAR VOLUME 96.7 fL (81-97); MEAN PLATELET VOLUME 7.4 fL (7.4-10.4); PLATELET COUNT 427 x10^3/uL (130-400); RED BLOOD COUNT 3.69 x10^6/uL (4.38-5.82); RED CELL DISTRIBUTION WIDTH 13.3 % (9.4-14.8)
[2018-01-12 09:28] LABS: ALBUMIN 2.3 g/dL (3.4-5.0); ANION GAP 10 mmol/L (5-15); CALCIUM 8.4 mg/dL (8.5-10.1); CHLORIDE 103 mmol/L (98-107); CREATININE 1.21 mg/dL (0.7-1.3)
[2018-01-12 09:38] LABS: MD YES
[2018-01-12 09:40] LABS: BANDS%(MANUAL) 1 % (0-7); EOS% (MANUAL) 4 % (1-7); LYMPHS% (MANUAL) 6 % (22-44); METAMYELOCYTES% (MANUAL) 3 % (0-1); MONOS% (MANUAL) 8 % (2-9); MYELOCYTES% (MANUAL) 1 % (0-0); SEGS% (MANUAL) 77 % (42-75)
[2018-01-12 09:41] LABS: POLYCHROMASIA 1+
[2018-01-12 09:42] LABS: <PLATELET ESTIMATE> INCREASED; <PLT MORPHOLOGY> NORMAL PLT MORPH
[2018-01-12] MEDS ORDERED: AMOXICILLIN/CLAV 875-125MG TABLET PO SCH (13:30)
[2018-01-12] MEDS ORDERED: DOXYCYCLINE 100MG CAP ONE ×2 (13:35→14:33)
[2018-01-12] MEDS: CLOPIDOGREL 75 MG TABLET PO SCH (13:36)
[2018-01-12 13:48] LABS: MICROSCOPIC NOT IND
[2018-01-12 13:51] LABS: CULTURE INDICATED? NO
[2018-01-12 14:24] VITALS: BP 121/71
[2018-01-12] MEDS ORDERED: CEFTRIAXONE 2 GM in DEXTROSE 5% 50 ML IV SCH (14:30)
[2018-01-12] MEDS: INSULIN GLARGINE 100 UNITS/ML, PEN SQ-INSULIN SCH ×2 (14:40→21:25)
[2018-01-12] MEDS: DOXYCYCLINE 100MG TABLET PO SCH ×2 (14:40→21:23)
[2018-01-12] MEDS: METHOCARBAMOL 750 MG TABLET PO PRN ×2 (16:09→21:23)
[2018-01-12 18:38] VITALS: BP 145/72
[2018-01-12] MEDS: ATORVASTATIN 20 MG TABLET PO SCH (21:23)
[2018-01-12] MEDS: MELATONIN 5 MG TABLET PO PRN (23:00)
[2018-01-13] MEDS: HEPARIN 5,000 UNITS/ML, 1ML SQ SCH ×3 (00:32→16:40)
[2018-01-13] MEDS: OXYcodone IR 5MG TABLET PO PRN ×5 (00:32→22:42)
[2018-01-13 03:55] VITALS: BP 147/77
[2018-01-13 05:17] LABS: MEAN CORPUSCULAR HEMOGLOBIN 33.2 pg (27.5-34.5); MEAN CORPUSCULAR HGB CONC 33.8 g/dL (33.2-36.2); MEAN CORPUSCULAR VOLUME 98.3 fL (81-97); MEAN PLATELET VOLUME 7.7 fL (7.4-10.4); PLATELET COUNT 420 x10^3/uL (130-400); RED BLOOD COUNT 3.65 x10^6/uL (4.38-5.82); RED CELL DISTRIBUTION WIDTH 13.4 % (9.4-14.8)
[2018-01-13 05:23] LABS: ALBUMIN 2.2 g/dL (3.4-5.0); ANION GAP 8 mmol/L (5-15); CALCIUM 8.3 mg/dL (8.5-10.1); CHLORIDE 106 mmol/L (98-107); CREATININE 1.24 mg/dL (0.7-1.3)
[2018-01-13 06:12] LABS: MD YES
[2018-01-13 06:13] LABS: BAND#(MANUAL) 0.45 x10^3/uL; BANDS%(MANUAL) 2 % (0-7); LYMPH#(MANUAL) 1.12 x10^3/uL (1-3.4); LYMPHS% (MANUAL) 5 % (22-44); METAMYELOCYTES# (MANUAL) 0.45 x10^3/uL (0-0); METAMYELOCYTES% (MANUAL) 2 % (0-1); MYELOCYTES# (MANUAL) 0.22 x10^3/uL (0-0); MYELOCYTES% (MANUAL) 1 % (0-0)
[2018-01-13 06:14] LABS: EOS#(MANUAL) 0.67 x10^3/uL (0.0-0.4); EOS% (MANUAL) 3 % (1-7); MONOS% (MANUAL) 4 % (2-9); SEG#(MANUAL) 18.59 x10^3/uL (1.8-6.8); SEGS% (MANUAL) 83 % (42-75)
[2018-01-13 06:15] LABS: <PLATELET ESTIMATE> INCREASED; <PLT MORPHOLOGY> NORMAL PLT MORPH; POLYCHROMASIA 1+
[2018-01-13] MEDS: METHOCARBAMOL 750 MG TABLET PO PRN ×2 (06:26→23:54)
[2018-01-13] MEDS: INSULIN LISPRO 100 UNITS/ML, PEN SQ-INSULIN SCH ×4 (06:32→21:18)
[2018-01-13 07:06] VITALS: BP 134/74
[2018-01-13] MEDS: SODIUM CHLORIDE FLUSH 10ML SYR IVF SCH ×2 (08:48→21:00)
[2018-01-13] MEDS: VALSARTAN 320 MG TABLET PO SCH (08:49)
[2018-01-13] MEDS: MAGNESIUM OXIDE 400 MG TABLET PO SCH (08:49)
[2018-01-13] MEDS: MULTIVITAMIN 1 TABLET PO SCH (08:49)
[2018-01-13] MEDS: HYDROCHLOROTHIAZIDE 25 MG TABLET PO SCH (08:49)
[2018-01-13] MEDS: METOPROLOL TARTRATE 100 MG TABLET PO SCH (08:50)
[2018-01-13] MEDS: DOXYCYCLINE 100MG TABLET PO SCH ×2 (08:50→21:16)
[2018-01-13] MEDS: INSULIN GLARGINE 100 UNITS/ML, PEN SQ-INSULIN SCH ×2 (08:51→21:17)
[2018-01-13] MEDS: AMPICILLIN/SULBACTAM 3 GM in SODIUM CHLORIDE 0.9% 100 ML IV SCH ×3 (09:54→22:42)
[2018-01-13] MEDS: ACETAMINOPHEN 325 MG TABLET PO PRN (11:06)
[2018-01-13] MEDS: CLOPIDOGREL 75 MG TABLET PO SCH (12:26)
[2018-01-13 12:53] VITALS: BP 115/85
[2018-01-13 15:02] LABS: MEAN CORPUSCULAR HEMOGLOBIN 32.3 pg (27.5-34.5); MEAN CORPUSCULAR HGB CONC 33.3 g/dL (33.2-36.2); MEAN CORPUSCULAR VOLUME 97.1 fL (81-97); MEAN PLATELET VOLUME 7.3 fL (7.4-10.4); PLATELET COUNT 416 x10^3/uL (130-400); RED BLOOD COUNT 3.51 x10^6/uL (4.38-5.82); RED CELL DISTRIBUTION WIDTH 13.6 % (9.4-14.8)
[2018-01-13 15:27] LABS: MD YES
[2018-01-13 15:29] LABS: BAND#(MANUAL) 0.63 x10^3/uL; BANDS%(MANUAL) 3 % (0-7); EOS#(MANUAL) 0.42 x10^3/uL (0.0-0.4); EOS% (MANUAL) 2 % (1-7); LYMPH#(MANUAL) 0.84 x10^3/uL (1-3.4); LYMPHS% (MANUAL) 4 % (22-44); METAMYELOCYTES# (MANUAL) 0.42 x10^3/uL (0-0); METAMYELOCYTES% (MANUAL) 2 % (0-1); MONOS#(MANUAL) 0.42 x10^3/uL (0.3-2.7); MONOS% (MANUAL) 2 % (2-9); MYELOCYTES# (MANUAL) 0.21 x10^3/uL (0-0); MYELOCYTES% (MANUAL) 1 % (0-0); SEG#(MANUAL) 17.97 x10^3/uL (1.8-6.8); SEGS% (MANUAL) 86 % (42-75)
[2018-01-13 15:30] LABS: POLYCHROMASIA 1+
[2018-01-13 15:31] LABS: <PLATELET ESTIMATE> INCREASED; <PLT MORPHOLOGY> NORMAL PLT MORPH
[2018-01-13 19:50] VITALS: BP 121/66
[2018-01-13] MEDS: ATORVASTATIN 20 MG TABLET PO SCH (21:16)
[2018-01-13] MEDS: MELATONIN 5 MG TABLET PO PRN (22:42)
[2018-01-14] MEDS: HEPARIN 5,000 UNITS/ML, 1ML SQ SCH ×3 (01:31→17:02)
[2018-01-14 02:44] VITALS: BP 132/74
[2018-01-14] MEDS: AMPICILLIN/SULBACTAM 3 GM in SODIUM CHLORIDE 0.9% 100 ML IV SCH ×4 (04:43→22:57)
[2018-01-14] MEDS: OXYcodone IR 5MG TABLET PO PRN ×6 (04:43→22:57)
[2018-01-14 05:05] LABS: MEAN CORPUSCULAR HEMOGLOBIN 33.2 pg (27.5-34.5); MEAN CORPUSCULAR VOLUME 97.6 fL (81-97); MEAN PLATELET VOLUME 7.5 fL (7.4-10.4); PLATELET COUNT 414 x10^3/uL (130-400); RED CELL DISTRIBUTION WIDTH 13.5 % (9.4-14.8)
[2018-01-14 05:11] LABS: ALBUMIN 2.2 g/dL (3.4-5.0); ANION GAP 7 mmol/L (5-15); CALCIUM 8.3 mg/dL (8.5-10.1); CHLORIDE 106 mmol/L (98-107); CREATININE 1.34 mg/dL (0.7-1.3)
[2018-01-14 05:32] LABS: MD YES
[2018-01-14 05:34] LABS: <PLATELET ESTIMATE> ADEQUATE; <PLT MORPHOLOGY> NORMAL PLT MORPH; BAND#(MANUAL) 0.47 x10^3/uL; BANDS%(MANUAL) 2 % (0-7); EOS#(MANUAL) 0.71 x10^3/uL (0.0-0.4); EOS% (MANUAL) 3 % (1-7); LYMPH#(MANUAL) 2.61 x10^3/uL (1-3.4); LYMPHS% (MANUAL) 11 % (22-44); MONOS#(MANUAL) 0.95 x10^3/uL (0.3-2.7); MONOS% (MANUAL) 4 % (2-9); MYELOCYTES# (MANUAL) 0.24 x10^3/uL (0-0); MYELOCYTES% (MANUAL) 1 % (0-0); POLYCHROMASIA 1+; SEG#(MANUAL) 18.72 x10^3/uL (1.8-6.8); SEGS% (MANUAL) 79 % (42-75)
[2018-01-14] MEDS: INSULIN LISPRO 100 UNITS/ML, PEN SQ-INSULIN SCH ×4 (07:00→20:43)
[2018-01-14 07:01] VITALS: BP 128/68
[2018-01-14] MEDS: INSULIN GLARGINE 100 UNITS/ML, PEN SQ-INSULIN SCH ×3 (09:00→20:44)
[2018-01-14] MEDS: MAGNESIUM OXIDE 400 MG TABLET PO SCH (09:47)
[2018-01-14] MEDS: VALSARTAN 320 MG TABLET PO SCH (09:48)
[2018-01-14] MEDS: HYDROCHLOROTHIAZIDE 25 MG TABLET PO SCH (09:48)
[2018-01-14] MEDS: METHOCARBAMOL 750 MG TABLET PO PRN ×2 (09:48→17:01)
[2018-01-14] MEDS: DOXYCYCLINE 100MG TABLET PO SCH ×2 (09:48→20:42)
[2018-01-14] MEDS: MULTIVITAMIN 1 TABLET PO SCH (09:48)
[2018-01-14] MEDS: METOPROLOL TARTRATE 100 MG TABLET PO SCH (09:50)
[2018-01-14] MEDS: SODIUM CHLORIDE FLUSH 10ML SYR IVF SCH ×2 (09:50→20:43)
[2018-01-14 09:53] LABS: HCT (SEDRATE) 37.1 % (39.2-51.8)
[2018-01-14] MEDS: CLOPIDOGREL 75 MG TABLET PO SCH (11:34)
[2018-01-14] MEDS: ACETAMINOPHEN 325 MG TABLET PO PRN (11:34)
[2018-01-14 12:46] VITALS: BP 104/64
[2018-01-14 19:26] VITALS: BP 104/62
[2018-01-14] MEDS: ATORVASTATIN 20 MG TABLET PO SCH (20:42)
[2018-01-14] MEDS: MELATONIN 5 MG TABLET PO PRN (22:57)
[2018-01-15] MEDS: HEPARIN 5,000 UNITS/ML, 1ML SQ SCH ×3 (01:35→16:54)
[2018-01-15 02:45] VITALS: BP 152/80
[2018-01-15] MEDS: OXYcodone IR 5MG TABLET PO PRN ×5 (02:58→22:16)
[2018-01-15] MEDS: AMPICILLIN/SULBACTAM 3 GM in SODIUM CHLORIDE 0.9% 100 ML IV SCH ×4 (04:51→23:46)
[2018-01-15 05:17] LABS: MEAN CORPUSCULAR HEMOGLOBIN 32.9 pg (27.5-34.5); MEAN CORPUSCULAR HGB CONC 33.7 g/dL (33.2-36.2); MEAN CORPUSCULAR VOLUME 97.5 fL (81-97); MEAN PLATELET VOLUME 7.8 fL (7.4-10.4); PLATELET COUNT 396 x10^3/uL (130-400); RED BLOOD COUNT 3.47 x10^6/uL (4.38-5.82); RED CELL DISTRIBUTION WIDTH 13.5 % (9.4-14.8)
[2018-01-15 05:25] LABS: ALBUMIN 2.2 g/dL (3.4-5.0); ANION GAP 8 mmol/L (5-15); CALCIUM 8.2 mg/dL (8.5-10.1); CHLORIDE 107 mmol/L (98-107)
[2018-01-15 05:26] LABS: CREATININE 1.19 mg/dL (0.7-1.3)
[2018-01-15 05:49] LABS: MD YES
[2018-01-15 05:51] LABS: BAND#(MANUAL) 0.48 x10^3/uL; BANDS%(MANUAL) 2 % (0-7); LYMPH#(MANUAL) 2.39 x10^3/uL (1-3.4); LYMPHS% (MANUAL) 10 % (22-44); METAMYELOCYTES# (MANUAL) 0.24 x10^3/uL (0-0); METAMYELOCYTES% (MANUAL) 1 % (0-1); MONOS% (MANUAL) 5 % (2-9); MYELOCYTES# (MANUAL) 0.48 x10^3/uL (0-0); MYELOCYTES% (MANUAL) 2 % (0-0); SEG#(MANUAL) 19.12 x10^3/uL (1.8-6.8); SEGS% (MANUAL) 80 % (42-75)
[2018-01-15 05:52] LABS: <PLATELET ESTIMATE> ADEQUATE; <PLT MORPHOLOGY> NORMAL PLT MORPH; <RBC MORPHOLOGY> NORMAL
[2018-01-15] MEDS: METHOCARBAMOL 750 MG TABLET PO PRN ×2 (06:16→18:14)
[2018-01-15 06:32] VITALS: BP 123/63
[2018-01-15] MEDS: INSULIN LISPRO 100 UNITS/ML, PEN SQ-INSULIN SCH ×4 (07:27→20:40)
[2018-01-15] MEDS ORDERED: MAGNESIUM SULFATE PMX 2GM/50ML 50 ML IV ONE (08:30)
[2018-01-15] MEDS: METOPROLOL TARTRATE 100 MG TABLET PO SCH (09:08)
[2018-01-15] MEDS: SODIUM CHLORIDE FLUSH 10ML SYR IVF SCH ×2 (09:55→20:38)
[2018-01-15] MEDS: MAGNESIUM OXIDE 400 MG TABLET PO SCH (09:56)
[2018-01-15] MEDS: VALSARTAN 320 MG TABLET PO SCH (09:56)
[2018-01-15] MEDS: DOXYCYCLINE 100MG TABLET PO SCH ×2 (09:56→20:38)
[2018-01-15] MEDS: HYDROCHLOROTHIAZIDE 25 MG TABLET PO SCH (09:56)
[2018-01-15] MEDS: MULTIVITAMIN 1 TABLET PO SCH (09:56)
[2018-01-15] MEDS: INSULIN GLARGINE 100 UNITS/ML, PEN SQ-INSULIN SCH ×2 (09:57→20:39)
[2018-01-15] MEDS: CLOPIDOGREL 75 MG TABLET PO SCH (12:47)
[2018-01-15 14:05] VITALS: BP 113/63
[2018-01-15] MEDS: ACETAMINOPHEN 325 MG TABLET PO PRN ×2 (16:49→23:14)
[2018-01-15 19:53] VITALS: BP 103/56
[2018-01-15] MEDS: ATORVASTATIN 20 MG TABLET PO SCH (20:38)
[2018-01-15] MEDS: MELATONIN 5 MG TABLET PO PRN (22:16)
[2018-01-16 01:24] VITALS: BP 127/70
[2018-01-16] MEDS: HEPARIN 5,000 UNITS/ML, 1ML SQ SCH ×3 (01:39→17:24)
[2018-01-16] MEDS: OXYcodone IR 5MG TABLET PO PRN ×5 (02:24→23:59)
[2018-01-16] MEDS: AMPICILLIN/SULBACTAM 3 GM in SODIUM CHLORIDE 0.9% 100 ML IV SCH ×4 (06:02→23:59)
[2018-01-16 06:34] VITALS: BP 142/73
[2018-01-16] MEDS: INSULIN LISPRO 100 UNITS/ML, PEN SQ-INSULIN SCH ×4 (07:00→20:16)
[2018-01-16] MEDS: MULTIVITAMIN 1 TABLET PO SCH (08:12)
[2018-01-16] MEDS: METHOCARBAMOL 750 MG TABLET PO PRN ×2 (08:12→20:02)
[2018-01-16] MEDS: HYDROCHLOROTHIAZIDE 25 MG TABLET PO SCH (08:12)
[2018-01-16] MEDS: VALSARTAN 320 MG TABLET PO SCH (08:12)
[2018-01-16] MEDS: DOXYCYCLINE 100MG TABLET PO SCH ×2 (08:13→20:02)
[2018-01-16] MEDS: METOPROLOL TARTRATE 100 MG TABLET PO SCH (08:13)
[2018-01-16] MEDS: MAGNESIUM OXIDE 400 MG TABLET PO SCH (08:13)
[2018-01-16] MEDS: INSULIN GLARGINE 100 UNITS/ML, PEN SQ-INSULIN SCH ×2 (08:16→20:16)
[2018-01-16] MEDS: SODIUM CHLORIDE FLUSH 10ML SYR IVF SCH ×2 (08:16→20:03)
[2018-01-16 08:35] LABS: ALBUMIN 2.3 g/dL (3.4-5.0); ANION GAP 7 mmol/L (5-15); CALCIUM 8.6 mg/dL (8.5-10.1); CHLORIDE 106 mmol/L (98-107); CREATININE 1.19 mg/dL (0.7-1.3)
[2018-01-16 08:46] LABS: MEAN CORPUSCULAR HEMOGLOBIN 32.6 pg (27.5-34.5); MEAN CORPUSCULAR HGB CONC 33.5 g/dL (33.2-36.2); MEAN CORPUSCULAR VOLUME 97.3 fL (81-97); MEAN PLATELET VOLUME 8.1 fL (7.4-10.4); PLATELET COUNT 392 x10^3/uL (130-400); RED BLOOD COUNT 3.42 x10^6/uL (4.38-5.82); RED CELL DISTRIBUTION WIDTH 13.6 % (9.4-14.8)
[2018-01-16 09:09] LABS: MD YES
[2018-01-16 09:10] LABS: EOS#(MANUAL) 1.05 x10^3/uL (0.0-0.4); EOS% (MANUAL) 5 % (1-7); LYMPH#(MANUAL) 2.93 x10^3/uL (1-3.4); LYMPHS% (MANUAL) 14 % (22-44); METAMYELOCYTES# (MANUAL) 0.21 x10^3/uL (0-0); METAMYELOCYTES% (MANUAL) 1 % (0-1); MONOS#(MANUAL) 1.67 x10^3/uL (0.3-2.7); MONOS% (MANUAL) 8 % (2-9); MYELOCYTES# (MANUAL) 0.21 x10^3/uL (0-0); MYELOCYTES% (MANUAL) 1 % (0-0); SEG#(MANUAL) 14.84 x10^3/uL (1.8-6.8); SEGS% (MANUAL) 71 % (42-75)
[2018-01-16 09:11] LABS: <PLATELET ESTIMATE> ADEQUATE; <PLT MORPHOLOGY> NORMAL PLT MORPH; <RBC MORPHOLOGY> NORMAL
[2018-01-16 12:10] VITALS: BP 120/75
[2018-01-16] MEDS: CLOPIDOGREL 75 MG TABLET PO SCH (13:07)
[2018-01-16] MEDS: ACETAMINOPHEN 325 MG TABLET PO PRN (17:51)
[2018-01-16 18:43] VITALS: BP 126/64
[2018-01-16] MEDS: ATORVASTATIN 20 MG TABLET PO SCH (20:02)
[2018-01-16] MEDS: MELATONIN 5 MG TABLET PO PRN (21:32)
[2018-01-16] MEDS ORDERED: LORazepam 2 MG/ML, 1ML IVPush ONE (23:00)
[2018-01-17 00:55] VITALS: BP 136/73
[2018-01-17] MEDS: HEPARIN 5,000 UNITS/ML, 1ML SQ SCH ×2 (01:11→09:09)
[2018-01-17] MEDS: OXYcodone IR 5MG TABLET PO PRN ×3 (04:08→15:25)
[2018-01-17 04:58] LABS: MEAN CORPUSCULAR HEMOGLOBIN 32.7 pg (27.5-34.5); MEAN CORPUSCULAR HGB CONC 33.3 g/dL (33.2-36.2); MEAN PLATELET VOLUME 7.7 fL (7.4-10.4); PLATELET COUNT 381 x10^3/uL (130-400); RED BLOOD COUNT 3.41 x10^6/uL (4.38-5.82); RED CELL DISTRIBUTION WIDTH 13.7 % (9.4-14.8)
[2018-01-17 05:06] LABS: ALBUMIN 2.3 g/dL (3.4-5.0); ANION GAP 10 mmol/L (5-15); CALCIUM 8.5 mg/dL (8.5-10.1); CHLORIDE 105 mmol/L (98-107); CREATININE 1.11 mg/dL (0.7-1.3)
[2018-01-17 05:41] LABS: MD YES
[2018-01-17 05:42] LABS: BAND#(MANUAL) 0.19 x10^3/uL; BANDS%(MANUAL) 1 % (0-7); EOS#(MANUAL) 0.19 x10^3/uL (0.0-0.4); EOS% (MANUAL) 1 % (1-7); LYMPH#(MANUAL) 1.92 x10^3/uL (1-3.4); LYMPHS% (MANUAL) 10 % (22-44); METAMYELOCYTES# (MANUAL) 0.19 x10^3/uL (0-0); METAMYELOCYTES% (MANUAL) 1 % (0-1); MONOS#(MANUAL) 0.96 x10^3/uL (0.3-2.7); MONOS% (MANUAL) 5 % (2-9); MYELOCYTES# (MANUAL) 0.19 x10^3/uL (0-0); MYELOCYTES% (MANUAL) 1 % (0-0); SEG#(MANUAL) 15.55 x10^3/uL (1.8-6.8); SEGS% (MANUAL) 81 % (42-75)
[2018-01-17 05:43] LABS: <PLATELET ESTIMATE> ADEQUATE; <PLT MORPHOLOGY> NORMAL PLT MORPH; POLYCHROMASIA 1+
[2018-01-17] MEDS: AMPICILLIN/SULBACTAM 3 GM in SODIUM CHLORIDE 0.9% 100 ML IV SCH ×2 (06:08→11:53)
[2018-01-17] MEDS: INSULIN LISPRO 100 UNITS/ML, PEN SQ-INSULIN SCH ×3 (06:13→15:35)
[2018-01-17 06:53] VITALS: BP 136/71
[2018-01-17] MEDS: MAGNESIUM OXIDE 400 MG TABLET PO SCH (08:00)
[2018-01-17] MEDS: METHOCARBAMOL 750 MG TABLET PO PRN (08:00)
[2018-01-17] MEDS: HYDROCHLOROTHIAZIDE 25 MG TABLET PO SCH (08:01)
[2018-01-17] MEDS: DOXYCYCLINE 100MG TABLET PO SCH (08:02)
[2018-01-17] MEDS: SODIUM CHLORIDE FLUSH 10ML SYR IVF SCH (08:03)
[2018-01-17] MEDS: INSULIN GLARGINE 100 UNITS/ML, PEN SQ-INSULIN SCH (08:03)
[2018-01-17] MEDS: MULTIVITAMIN 1 TABLET PO SCH (08:10)
[2018-01-17] MEDS: METOPROLOL TARTRATE 100 MG TABLET PO SCH (08:10)
[2018-01-17] MEDS: VALSARTAN 320 MG TABLET PO SCH (08:11)
[2018-01-17] MEDS: ACETAMINOPHEN 325 MG TABLET PO PRN (11:40)
[2018-01-17] MEDS ORDERED: INSU100I13 SQ-INSULIN ×2 (12:58)
[2018-01-17] MEDS ORDERED: DOXY100T PO (12:58)
[2018-01-17] MEDS ORDERED: AMOX1TAB64 PO (12:58)
[2018-01-17] MEDS ORDERED: CLOP75TA PO (12:58)
[2018-01-17] MEDS: CLOPIDOGREL 75 MG TABLET PO SCH (13:13)
[2018-01-17 13:43] VITALS: BP 131/72
== END 2018-01-17 16:44 | DRG 853 ==
LOC: 4NOR 14:41 → CCU 01-07 08:19 → 4NOR 01-08 08:57
PROVIDERS: ADMIT Family Medicine; ATTEND Family Medicine
PROC: B41F1ZZ Fluoroscopy of Right Lower Extremity Arteries using Low Osmolar Contrast (ICD-10-PCS; 2018-01-07)
PROC: B44GZZZ Ultrasonography of Left Lower Extremity Arteries (ICD-10-PCS; 2018-01-07)
PROC: B4101ZZ Fluoroscopy of Abdominal Aorta using Low Osmolar Contrast (ICD-10-PCS; 2018-01-07)
PROC: 3E05317 Introduction of Other Thrombolytic into Peripheral Artery, Percutaneous Approach (ICD-10-PCS; 2018-01-07)
PROC: 047K3ZZ Dilation of Right Femoral Artery, Percutaneous Approach (ICD-10-PCS; principal; 2018-01-08)
PROC: 047M3ZZ Dilation of Right Popliteal Artery, Percutaneous Approach (ICD-10-PCS; 2018-01-08)
PROC: 047P3ZZ Dilation of Right Anterior Tibial Artery, Percutaneous Approach (ICD-10-PCS; 2018-01-08)
DX: A41.9 Sepsis, unspecified organism (principal); J18.9 Pneumonia, unspecified organism; E44.0 Moderate protein-calorie malnutrition; I82.431 Acute embolism and thrombosis of right popliteal vein; E11.42 Type 2 diabetes mellitus with diabetic polyneuropathy; E11.51 Type 2 diabetes mellitus with diabetic peripheral angiopathy without gangrene; L97.409 Non-pressure chronic ulcer of unspecified heel and midfoot with unspecified severity; L03.119 Cellulitis of unspecified part of limb; E11.621 Type 2 diabetes mellitus with foot ulcer; E11.65 Type 2 diabetes mellitus with hyperglycemia; L97.519 Non-pressure chronic ulcer of other part of right foot with unspecified severity; M79.89 Other specified soft tissue disorders; Z79.84 Long term (current) use of oral hypoglycemic drugs; E87.5 Hyperkalemia; I11.9 Hypertensive heart disease without heart failure; I99.8 Other disorder of circulatory system; G89.29 Other chronic pain; E78.5 Hyperlipidemia, unspecified; H66.90 Otitis media, unspecified, unspecified ear; K21.9 Gastro-esophageal reflux disease without esophagitis; Z79.4 Long term (current) use of insulin; Z79.891 Long term (current) use of opiate analgesic; Z82.3 Family history of stroke; Z87.891 Personal history of nicotine dependence; Z79.899 Other long term (current) drug therapy; Z68.23 Body mass index [BMI] 23.0-23.9, adult
CPT/HCPCS: 36415; 37211; 37214; 71045; 71046; 75625; 75710; 75716; 80048; 80053; 81003; 82040; 82784; 82787; 82962; 83036; 83735; 84100; 85025; 85384; 85520; 85651; 86140; 87040; 87070; 87081; 87205; 93970; 99156; 99157; C1725; J0295; J1644; J2250; J2405; J2543; J2720; J2997; J3010; J3370; J3490; C1751; C1760; C1769; C1894; J1815; J2060; J2310; J3475; J7030; J7050; Q0163; Q0177

== ENCOUNTER 2018-02-19 16:05 | Inpatient (IN) | payer MEDICARE, OTHER ==
[~2018-02-19] VITALS: Ht 172.7 cm; Wt 78.0 kg
[~2018-02-19 16:05] MED LIST: AMOX1TAB64 PO; CALC300T5 PO; CHON400C PO; CLOP75TA PO; DICL100G19 TP; DOXY100T PO; DOXY25TA18 PO; FURO-93 PO; GLUC15006 PO; INSU100I13 SQ-INSULIN; LINA5TAB PO; MAGN400T26 PO; MELA5TAB19 PO; METH750T2 PO; METO-99 PO; MULT-6 PO; NAPR250T6 PO; OMEG1CAP2 PO; OXYC-307 PO; RANI150T23 PO; ROSU10TA PO; TROL85CR TP; VALS1TAB30 PO
[2018-02-19] MEDS ORDERED: SODIUM CHLORIDE 0.9% 1,000 ML IV ONE (16:43)
[2018-02-19] MEDS ORDERED: HEPARIN 25,000 UNITS/500ML PMX 500 ML IV PRN (17:00)
[2018-02-19] MEDS ORDERED: HEPARIN 5,000 UNITS/ML, 1ML IV ONE (17:00)
[2018-02-19] MEDS ORDERED: SODIUM CHLORIDE 0.9% 1,000ML IVBOLUS ONE (17:00)
[2018-02-19] MEDS ORDERED: HEPARIN 5,000 UNITS/ML, 1ML IV PRN (17:00)
[2018-02-19] MEDS ORDERED: HEPARIN 5,000 UNITS/ML, 1ML ONE ×2 (17:02→17:19)
[2018-02-19] MEDS ORDERED: MORPHINE SULFATE 4 MG/ML, 1ML ONE ×2 (17:03→17:32)
[2018-02-19 17:05] LABS: MEAN CORPUSCULAR HEMOGLOBIN 31.8 pg (27.5-34.5); MEAN CORPUSCULAR HGB CONC 33.1 g/dL (33.2-36.2); MEAN CORPUSCULAR VOLUME 96.1 fL (81-97); MEAN PLATELET VOLUME 7.2 fL (7.4-10.4); PLATELET COUNT 426 x10^3/uL (130-400); RED BLOOD COUNT 3.93 x10^6/uL (4.38-5.82); RED CELL DISTRIBUTION WIDTH 13.8 % (9.4-14.8)
[2018-02-19 17:11] LABS: INTERNATIONAL NORMALIZED RATIO 0.94 (0.93-1.1); PROTHROMBIN TIME 9.8 Seconds (9.6-11.5)
[2018-02-19 17:16] LABS: ALANINE AMINOTRANSFERASE 14 U/L (12-78); ALBUMIN 2.5 g/dL (3.4-5.0); ANION GAP 8 mmol/L (5-15); CALCIUM 8.7 mg/dL (8.5-10.1); CHLORIDE 104 mmol/L (98-107); CREATININE 1.38 mg/dL (0.7-1.3)
[2018-02-19] MEDS: MORPHINE SULFATE 4 MG/ML, 1ML IVPush PRN ×4 (17:16→19:53)
[2018-02-19] MEDS ORDERED: HEPARIN 25,000 UNITS/500ML PMX 500 ML ONE (17:19)
[2018-02-19 17:20] LABS: ALKALINE PHOSPHATASE 76 U/L (45-117); BILIRUBIN,TOTAL 0.3 mg/dL (0.2-1.0); TOTAL PROTEIN 7.8 g/dL (6.4-8.2)
[2018-02-19] MEDS ORDERED: VANCOMYCIN PER PHARMACY IV ONE (17:30)
[2018-02-19] MEDS ORDERED: VANCOMYCIN PER PHARMACY MC PRN (17:30)
[2018-02-19] MEDS ORDERED: PHARMACY MAY ADJ FOR RENAL FX MC PRN (17:30)
[2018-02-19] MEDS ORDERED: PIPERACILLIN/TAZO/PMX 3.375GM 50 ML IVPB ONE (17:30)
[2018-02-19] MEDS ORDERED: PIPERACILLIN/TAZO/PMX 3.375GM 50 ML ONE (17:32)
[2018-02-19 17:35] LABS: BASOPHILS # (AUTO) 0.02 x10^3/uL (0-0.1); BASOPHILS % (AUTO) 0 % (0-1); EOSINOPHILS # (AUTO) 0.52 x10^3/uL (0-0.4); EOSINOPHILS % (AUTO) 4 % (1-7); LYMPHOCYTES # (AUTO) 1.13 x10^3/uL (1-3.4); LYMPHOCYTES % (AUTO) 9 % (22-44); MD SCAN; MONOCYTES # (AUTO) 1.52 x10^3/uL (0.2-0.8); MONOCYTES % (AUTO) 13 % (2-9); NEUTROPHILS # (AUTO) 8.77 x10^3/uL (1.8-6.8); NEUTROPHILS % (AUTO) 73 % (42-75)
[2018-02-19] MEDS ORDERED: INSU100I34 INJ (17:58)
[2018-02-19] MEDS ORDERED: VANCOMYCIN 1,500 MG in SODIUM CHLORIDE 0.9% 250 ML IV ONE (18:00)
[2018-02-19] MEDS ORDERED: ONDANSETRON 2MG/ML, 2ML IVPush PRN (18:00)
[2018-02-19] MEDS ORDERED: CLOPIDOGREL 75 MG TABLET PO SCH (18:00)
[2018-02-19] MEDS ORDERED: ONDANSETRON ODT 4 MG PO PRN (18:00)
[2018-02-19] MEDS: INSULIN LISPRO 100 UNITS/ML, PEN SQ-INSULIN SCH ×2 (18:00→20:49)
[2018-02-19] MEDS ORDERED: GLUC15006 PO (18:04)
[2018-02-19] MEDS ORDERED: MIRT15TA6 PO (18:04)
[2018-02-19] MEDS ORDERED: CHON400C PO (18:04)
[2018-02-19] MEDS ORDERED: OXYC5CAP2 PO (18:04)
[2018-02-19] MEDS ORDERED: MELA1TAB6 PO (18:04)
[2018-02-19] MEDS ORDERED: DICL100G19 TP (18:04)
[2018-02-19] MEDS ORDERED: HYDR25TA11 PO (18:04)
[2018-02-19 18:40] VITALS: BP 132/68
[2018-02-19] MEDS ORDERED: PHARMACOKINETIC MONITORING MC PRN (19:00)
[2018-02-19] MEDS ORDERED: PHARMACOKINETIC CONSULTATION MC ONE (19:00)
[2018-02-19] MEDS: METHOCARBAMOL 750 MG TABLET PO PRN (19:52)
[2018-02-19] MEDS: ATORVASTATIN 20 MG TABLET PO SCH (20:49)
[2018-02-19] MEDS ORDERED: TEMPLATE NON-FORMULARY MED. (Rosuvastatin Calcium** (Crestor**) 10 MG) PO SCH (21:00)
[2018-02-19] MEDS: ACETAMINOPHEN 325 MG TABLET PO PRN (21:05)
[2018-02-19] MEDS: morphine SULFATE 10 MG/ML, 1ML IVPush PRN (22:21)
[2018-02-19] MEDS: SODIUM CHLORIDE 0.9% 1,000 ML IV SCH (22:22)
[2018-02-19] MEDS: INSULIN GLARGINE 100 UNITS/ML, PEN SQ-INSULIN SCH (22:22)
[2018-02-20] MEDS: PIPERACILLIN/TAZO/PMX 3.375GM 50 ML IV SCH ×4 (00:50→22:56)
[2018-02-20] MEDS: morphine SULFATE 10 MG/ML, 1ML IVPush PRN ×4 (01:24→20:06)
[2018-02-20 01:30] VITALS: BP 122/77
[2018-02-20 04:49] LABS: ALBUMIN 2.1 g/dL (3.4-5.0); ANION GAP 10 mmol/L (5-15); BASOPHILS # (AUTO) 0.04 x10^3/uL (0-0.1); BASOPHILS % (AUTO) 0 % (0-1); CALCIUM 8.9 mg/dL (8.5-10.1); CHLORIDE 108 mmol/L (98-107); EOSINOPHILS # (AUTO) 0.39 x10^3/uL (0-0.4); EOSINOPHILS % (AUTO) 3 % (1-7); LYMPHOCYTES % (AUTO) 6 % (22-44); MD NO; MEAN CORPUSCULAR HEMOGLOBIN 31.3 pg (27.5-34.5); MEAN CORPUSCULAR HGB CONC 32.7 g/dL (33.2-36.2); MEAN CORPUSCULAR VOLUME 95.6 fL (81-97); MONOCYTES # (AUTO) 0.94 x10^3/uL (0.2-0.8); MONOCYTES % (AUTO) 7 % (2-9); NEUTROPHILS # (AUTO) 12.24 x10^3/uL (1.8-6.8); NEUTROPHILS % (AUTO) 85 % (42-75); PLATELET COUNT 405 x10^3/uL (130-400); RED BLOOD COUNT 3.73 x10^6/uL (4.38-5.82); RED CELL DISTRIBUTION WIDTH 13.9 % (9.4-14.8)
[2018-02-20 04:52] LABS: ALANINE AMINOTRANSFERASE 11 U/L (12-78); ALKALINE PHOSPHATASE 64 U/L (45-117); BILIRUBIN,TOTAL 0.4 mg/dL (0.2-1.0); TOTAL PROTEIN 6.9 g/dL (6.4-8.2)
[2018-02-20] MEDS: INSULIN LISPRO 100 UNITS/ML, PEN SQ-INSULIN SCH ×4 (07:00→22:55)
[2018-02-20 07:10] VITALS: BP 108/65
[2018-02-20] MEDS: MULTIVITAMIN 1 TABLET PO SCH (08:09)
[2018-02-20] MEDS: MAGNESIUM OXIDE 400 MG TABLET PO SCH (08:09)
[2018-02-20] MEDS: METOPROLOL TARTRATE 100 MG TABLET PO SCH (08:12)
[2018-02-20] MEDS: INSULIN GLARGINE 100 UNITS/ML, PEN SQ-INSULIN SCH ×2 (08:16→22:55)
[2018-02-20] MEDS ORDERED: CLOPIDOGREL 75 MG TABLET PO ONE (09:00)
[2018-02-20] MEDS: ACETAMINOPHEN 325 MG TABLET PO PRN (09:24)
[2018-02-20] MEDS: METHOCARBAMOL 750 MG TABLET PO PRN (09:25)
[2018-02-20] MEDS: OXYcodone/APAP 10/325MG TABLET PO PRN ×3 (09:35→22:56)
[2018-02-20] MEDS ORDERED: LIDOCAINE 2%, 20ML ONE (09:48)
[2018-02-20] MEDS ORDERED: HEPARIN 1,000 UNITS/ML, 10ML ONE (11:29)
[2018-02-20] MEDS ORDERED: FENTANYL PF 100 MCG/2ML ONE (11:29)
[2018-02-20] MEDS ORDERED: MIDAZOLAM 1 MG/ML, 5ML ONE (11:29)
[2018-02-20] MEDS ORDERED: NALOXONE 1 MG/ML, 2ML ONE (11:29)
[2018-02-20] MEDS ORDERED: NITROGLYCERIN 5 MG/ML, 10ML ONE (11:29)
[2018-02-20] MEDS ORDERED: PROTAMINE SULFATE 10 MG/ML, 25ML ONE (11:29)
[2018-02-20] MEDS ORDERED: FLUMAZENIL 0.1 MG/1 ML, 5ML ONE (11:29)
[2018-02-20] MEDS ORDERED: VISIPAQUE 270 MG/ML, 150ML BOTTLE ONE (12:00)
[2018-02-20] MEDS ORDERED: VISIPAQUE 270 MG/ML, 50ML BOTTLE ONE (12:00)
[2018-02-20 14:00] VITALS: BP 140/80
[2018-02-20] MEDS ORDERED: ALTEPLASE 100 MG in BAG 1 EACH IV ONE (14:00)
[2018-02-20] MEDS: GABAPENTIN 100 MG CAPSULE PO SCH ×2 (17:58→21:44)
[2018-02-20 19:07] VITALS: BP 96/59
[2018-02-20] MEDS: VANCOMYCIN 1,500 MG in SODIUM CHLORIDE 0.9% 250 ML IV SCH (20:07)
[2018-02-20] MEDS: ATORVASTATIN 20 MG TABLET PO SCH (21:44)
[2018-02-20] MEDS: SODIUM CHLORIDE 0.9% 1,000 ML IV SCH (21:44)
[2018-02-21] MEDS: ACETAMINOPHEN 325 MG TABLET PO PRN ×3 (02:07→23:33)
[2018-02-21 02:11] VITALS: BP 107/57
[2018-02-21] MEDS: morphine SULFATE 10 MG/ML, 1ML IVPush PRN ×4 (03:46→21:06)
[2018-02-21 05:00] LABS: BASOPHILS # (AUTO) 0.02 x10^3/uL (0-0.1); BASOPHILS % (AUTO) 0 % (0-1); EOSINOPHILS # (AUTO) 0.27 x10^3/uL (0-0.4); EOSINOPHILS % (AUTO) 2 % (1-7); LYMPHOCYTES # (AUTO) 0.67 x10^3/uL (1-3.4); LYMPHOCYTES % (AUTO) 5 % (22-44); MD NO; MEAN CORPUSCULAR HEMOGLOBIN 32.1 pg (27.5-34.5); MEAN CORPUSCULAR HGB CONC 33.7 g/dL (33.2-36.2); MEAN CORPUSCULAR VOLUME 95.2 fL (81-97); MEAN PLATELET VOLUME 7.2 fL (7.4-10.4); MONOCYTES # (AUTO) 0.72 x10^3/uL (0.2-0.8); MONOCYTES % (AUTO) 5 % (2-9); NEUTROPHILS # (AUTO) 11.57 x10^3/uL (1.8-6.8); NEUTROPHILS % (AUTO) 87 % (42-75); PLATELET COUNT 341 x10^3/uL (130-400); RED BLOOD COUNT 2.85 x10^6/uL (4.38-5.82); RED CELL DISTRIBUTION WIDTH 13.6 % (9.4-14.8)
[2018-02-21 05:06] LABS: CHLORIDE 107 mmol/L (98-107)
[2018-02-21 05:11] LABS: ANION GAP 11 mmol/L (5-15); CALCIUM 8.1 mg/dL (8.5-10.1); CREATININE 1.22 mg/dL (0.7-1.3)
[2018-02-21] MEDS: GABAPENTIN 100 MG CAPSULE PO SCH ×5 (05:20→21:28)
[2018-02-21] MEDS: OXYcodone/APAP 10/325MG TABLET PO PRN ×4 (05:20→23:46)
[2018-02-21] MEDS: PIPERACILLIN/TAZO/PMX 3.375GM 50 ML IV SCH ×4 (05:21→23:27)
[2018-02-21] MEDS: INSULIN LISPRO 100 UNITS/ML, PEN SQ-INSULIN SCH ×4 (07:00→21:07)
[2018-02-21 08:56] VITALS: BP 128/75
[2018-02-21] MEDS: METOPROLOL TARTRATE 100 MG TABLET PO SCH (09:06)
[2018-02-21] MEDS: MULTIVITAMIN 1 TABLET PO SCH (09:07)
[2018-02-21] MEDS: METHOCARBAMOL 750 MG TABLET PO PRN (09:07)
[2018-02-21] MEDS: MAGNESIUM OXIDE 400 MG TABLET PO SCH (09:07)
[2018-02-21] MEDS: INSULIN GLARGINE 100 UNITS/ML, PEN SQ-INSULIN SCH ×2 (09:09→21:07)
[2018-02-21] MEDS: SODIUM CHLORIDE 0.9% 1,000 ML IV SCH ×2 (09:11→23:28)
[2018-02-21] MEDS ORDERED: MAGNESIUM SULFATE PMX 2GM/50ML 50 ML IV ONE (10:00)
[2018-02-21 14:20] VITALS: BP 93/60
[2018-02-21] MEDS: VANCOMYCIN 1,500 MG in SODIUM CHLORIDE 0.9% 250 ML IV SCH (19:45)
[2018-02-21 20:16] VITALS: BP 110/66
[2018-02-21] MEDS: ATORVASTATIN 20 MG TABLET PO SCH ×2 (21:06→21:28)
[2018-02-22 02:19] VITALS: BP 95/44
[2018-02-22] MEDS: GABAPENTIN 100 MG CAPSULE PO SCH ×4 (05:57→21:42)
[2018-02-22] MEDS: PIPERACILLIN/TAZO/PMX 3.375GM 50 ML IV SCH ×4 (05:57→23:12)
[2018-02-22] MEDS: OXYcodone/APAP 10/325MG TABLET PO PRN ×2 (05:57→21:42)
[2018-02-22 06:07] LABS: BASOPHILS # (AUTO) 0.02 x10^3/uL (0-0.1); BASOPHILS % (AUTO) 0 % (0-1); EOSINOPHILS # (AUTO) 0.87 x10^3/uL (0-0.4); EOSINOPHILS % (AUTO) 6 % (1-7); LYMPHOCYTES # (AUTO) 0.68 x10^3/uL (1-3.4); LYMPHOCYTES % (AUTO) 5 % (22-44); MD NO; MEAN CORPUSCULAR HEMOGLOBIN 31.8 pg (27.5-34.5); MEAN CORPUSCULAR HGB CONC 33.2 g/dL (33.2-36.2); MEAN CORPUSCULAR VOLUME 95.9 fL (81-97); MEAN PLATELET VOLUME 7.3 fL (7.4-10.4); MONOCYTES # (AUTO) 0.86 x10^3/uL (0.2-0.8); MONOCYTES % (AUTO) 6 % (2-9); NEUTROPHILS % (AUTO) 84 % (42-75); PLATELET COUNT 314 x10^3/uL (130-400); RED CELL DISTRIBUTION WIDTH 13.6 % (9.4-14.8)
[2018-02-22 06:24] LABS: CALCIUM 8.1 mg/dL (8.5-10.1); CHLORIDE 110 mmol/L (98-107)
[2018-02-22 06:27] LABS: ANION GAP 10 mmol/L (5-15); CREATININE 1.31 mg/dL (0.7-1.3)
[2018-02-22] MEDS: INSULIN LISPRO 100 UNITS/ML, PEN SQ-INSULIN SCH ×4 (07:00→21:00)
[2018-02-22 08:17] VITALS: BP 104/61
[2018-02-22] MEDS: METOPROLOL TARTRATE 100 MG TABLET PO SCH (08:44)
[2018-02-22] MEDS: MAGNESIUM OXIDE 400 MG TABLET PO SCH (08:44)
[2018-02-22] MEDS: METHOCARBAMOL 750 MG TABLET PO PRN ×2 (08:48→23:32)
[2018-02-22] MEDS: MULTIVITAMIN 1 TABLET PO SCH (08:49)
[2018-02-22] MEDS: METOPROLOL TARTRATE 50 MG TABLET PO SCH ×2 (08:49→21:00)
[2018-02-22] MEDS: INSULIN GLARGINE 100 UNITS/ML, PEN SQ-INSULIN SCH ×2 (08:49→21:00)
[2018-02-22] MEDS: MAGNESIUM CHLORIDE 64 MG TABLET.DR PO SCH (08:49)
[2018-02-22] MEDS: morphine SULFATE 10 MG/ML, 1ML IVPush PRN ×2 (08:50→16:24)
[2018-02-22] MEDS ORDERED: SODIUM CHLORIDE 0.9% 1,000 ML IV SCH (12:30)
[2018-02-22] MEDS: SODIUM CHLORIDE 0.9% 1,000 ML IV SCH (12:33)
[2018-02-22 13:25] VITALS: BP 102/65
[2018-02-22] MEDS ORDERED: FENTANYL PF 250 MCG/5ML ONE (19:03)
[2018-02-22] MEDS ORDERED: PROPOFOL 10 MG/ML, 20ML ONE (19:12)
[2018-02-22] MEDS ORDERED: SUCCINYLCHOLINE 20 MG/ML, 10ML ONE (19:12)
[2018-02-22] MEDS ORDERED: hydrALAzine 20 MG/ML, 1ML IV PRN (19:30)
[2018-02-22] MEDS ORDERED: ONDANSETRON 2MG/ML, 2ML IVPush PRN (19:30)
[2018-02-22] MEDS ORDERED: LABETALOL 5MG/ML, 20ML IV PRN (19:30)
[2018-02-22] MEDS ORDERED: ALBUTEROL SULFATE 2.5 MG/3 ML NPPB PRN (19:30)
[2018-02-22] MEDS ORDERED: OXYcodone 5 MG/5 ML ORAL.SOL UDC PO PRN (19:30)
[2018-02-22] MEDS ORDERED: PROMETHAZINE 12.5 MG SUPP PR PRN (19:30)
[2018-02-22] MEDS ORDERED: ACETAMINOPHEN 325 MG TABLET PO PRN (19:30)
[2018-02-22] MEDS ORDERED: HYDROmorphone 1 MG/ML, 1ML IV PRN (19:30)
[2018-02-22] MEDS ORDERED: PROMETHAZINE 25 MG/ML, 1ML IV PRN (19:30)
[2018-02-22] MEDS ORDERED: CLOPIDOGREL 75 MG TABLET PO ONE (20:00)
[2018-02-22] MEDS: FENTANYL PF 100 MCG/2ML IV PRN ×4 (20:20→20:35)
[2018-02-22] MEDS ORDERED: OXYcodone 5 MG/5 ML ORAL.SOL UDC ONE (20:23)
[2018-02-22] MEDS ORDERED: FENTANYL PF 100 MCG/2ML ONE (20:23)
[2018-02-22] MEDS ORDERED: ACETAMINOPHEN 650 MG/20.3 ML UDC ONE (20:37)
[2018-02-22] MEDS: ATORVASTATIN 20 MG TABLET PO SCH (21:42)
[2018-02-23] MEDS: VANCOMYCIN 1,500 MG in SODIUM CHLORIDE 0.9% 250 ML IV SCH (00:09)
[2018-02-23 02:20] VITALS: BP 106/61
[2018-02-23] MEDS: morphine SULFATE 10 MG/ML, 1ML IVPush PRN (04:03)
[2018-02-23] MEDS: OXYcodone/APAP 10/325MG TABLET PO PRN ×5 (04:55→23:30)
[2018-02-23] MEDS: GABAPENTIN 100 MG CAPSULE PO SCH ×4 (04:56→21:25)
[2018-02-23] MEDS: PIPERACILLIN/TAZO/PMX 3.375GM 50 ML IV SCH ×3 (04:56→21:25)
[2018-02-23 05:10] LABS: BASOPHILS # (AUTO) 0.02 x10^3/uL (0-0.1); BASOPHILS % (AUTO) 0 % (0-1); EOSINOPHILS # (AUTO) 0.98 x10^3/uL (0-0.4); EOSINOPHILS % (AUTO) 6 % (1-7); LYMPHOCYTES # (AUTO) 0.87 x10^3/uL (1-3.4); LYMPHOCYTES % (AUTO) 5 % (22-44); MD NO; MEAN CORPUSCULAR HEMOGLOBIN 32.1 pg (27.5-34.5); MEAN CORPUSCULAR HGB CONC 33.3 g/dL (33.2-36.2); MEAN CORPUSCULAR VOLUME 96.3 fL (81-97); MEAN PLATELET VOLUME 7.3 fL (7.4-10.4); MONOCYTES # (AUTO) 1.29 x10^3/uL (0.2-0.8); MONOCYTES % (AUTO) 8 % (2-9); NEUTROPHILS # (AUTO) 13.91 x10^3/uL (1.8-6.8); NEUTROPHILS % (AUTO) 82 % (42-75); PLATELET COUNT 329 x10^3/uL (130-400); RED BLOOD COUNT 2.57 x10^6/uL (4.38-5.82); RED CELL DISTRIBUTION WIDTH 13.6 % (9.4-14.8)
[2018-02-23 05:22] LABS: ANION GAP 8 mmol/L (5-15); CALCIUM 8.2 mg/dL (8.5-10.1); CHLORIDE 113 mmol/L (98-107); CREATININE 1.21 mg/dL (0.7-1.3)
[2018-02-23] MEDS: INSULIN LISPRO 100 UNITS/ML, PEN SQ-INSULIN SCH ×4 (07:00→21:41)
[2018-02-23 07:24] VITALS: BP 123/63
[2018-02-23] MEDS: MAGNESIUM OXIDE 400 MG TABLET PO SCH (09:00)
[2018-02-23] MEDS: METOPROLOL TARTRATE 50 MG TABLET PO SCH ×2 (09:59→21:25)
[2018-02-23] MEDS: MAGNESIUM CHLORIDE 64 MG TABLET.DR PO SCH (09:59)
[2018-02-23] MEDS: MULTIVITAMIN 1 TABLET PO SCH (10:00)
[2018-02-23] MEDS: CLOPIDOGREL 75 MG TABLET PO SCH (10:00)
[2018-02-23] MEDS: METHOCARBAMOL 750 MG TABLET PO PRN ×2 (10:00→21:25)
[2018-02-23] MEDS: SODIUM CHLORIDE 0.9% 1,000 ML IV SCH ×2 (10:03→21:25)
[2018-02-23] MEDS: INSULIN GLARGINE 100 UNITS/ML, PEN SQ-INSULIN SCH ×2 (10:06→21:42)
[2018-02-23 16:36] VITALS: BP 107/64
[2018-02-23 19:12] VITALS: BP 124/68
[2018-02-23] MEDS: ATORVASTATIN 20 MG TABLET PO SCH (21:25)
[2018-02-23] MEDS: DIPHENHYDRAMINE 50 MG CAPSULE PO PRN (23:30)
[2018-02-24 02:44] VITALS: BP 119/70
[2018-02-24] MEDS: PIPERACILLIN/TAZO/PMX 3.375GM 50 ML IV SCH ×4 (03:04→21:20)
[2018-02-24 05:41] LABS: MEAN CORPUSCULAR HEMOGLOBIN 32.3 pg (27.5-34.5); MEAN CORPUSCULAR HGB CONC 33.7 g/dL (33.2-36.2); MEAN CORPUSCULAR VOLUME 96.1 fL (81-97); MEAN PLATELET VOLUME 7.3 fL (7.4-10.4); PLATELET COUNT 367 x10^3/uL (130-400); RED BLOOD COUNT 2.71 x10^6/uL (4.38-5.82); RED CELL DISTRIBUTION WIDTH 13.4 % (9.4-14.8)
[2018-02-24 05:55] LABS: ANION GAP 10 mmol/L (5-15); CALCIUM 7.8 mg/dL (8.5-10.1); CHLORIDE 112 mmol/L (98-107)
[2018-02-24 05:56] LABS: CREATININE 1.06 mg/dL (0.7-1.3)
[2018-02-24 06:22] LABS: BASOPHILS # (AUTO) 0.02 x10^3/uL (0-0.1); BASOPHILS % (AUTO) 0 % (0-1); EOSINOPHILS # (AUTO) 0.82 x10^3/uL (0-0.4); EOSINOPHILS % (AUTO) 4 % (1-7); LYMPHOCYTES # (AUTO) 0.81 x10^3/uL (1-3.4); LYMPHOCYTES % (AUTO) 4 % (22-44); MD SCAN; MONOCYTES # (AUTO) 1.63 x10^3/uL (0.2-0.8); MONOCYTES % (AUTO) 9 % (2-9); NEUTROPHILS # (AUTO) 15.83 x10^3/uL (1.8-6.8); NEUTROPHILS % (AUTO) 83 % (42-75)
[2018-02-24] MEDS: GABAPENTIN 100 MG CAPSULE PO SCH ×4 (06:40→21:21)
[2018-02-24] MEDS: INSULIN LISPRO 100 UNITS/ML, PEN SQ-INSULIN SCH ×4 (07:00→21:35)
[2018-02-24 08:00] VITALS: BP 129/71
[2018-02-24] MEDS ORDERED: FUROSEMIDE 40 MG/4 ML IV ONE (08:00)
[2018-02-24] MEDS: CLOPIDOGREL 75 MG TABLET PO SCH (08:27)
[2018-02-24] MEDS: MAGNESIUM CHLORIDE 64 MG TABLET.DR PO SCH (08:27)
[2018-02-24] MEDS: METOPROLOL TARTRATE 50 MG TABLET PO SCH ×2 (08:27→21:21)
[2018-02-24] MEDS: MULTIVITAMIN 1 TABLET PO SCH (08:27)
[2018-02-24] MEDS: OXYcodone/APAP 10/325MG TABLET PO PRN ×3 (08:27→19:49)
[2018-02-24] MEDS: INSULIN GLARGINE 100 UNITS/ML, PEN SQ-INSULIN SCH ×2 (08:28→21:34)
[2018-02-24] MEDS: ENOXAPARIN 40 MG/0.4 ML SQ SCH (09:18)
[2018-02-24 10:16] LABS: CLOSTRIDIUM DIFFICILE ANTIGEN NEGATIVE; CLOSTRIDIUM DIFFICILE TOXIN NEGATIVE (Negative)
[2018-02-24] MEDS: METHOCARBAMOL 750 MG TABLET PO PRN (11:26)
[2018-02-24] MEDS: VANCOMYCIN 1,500 MG in SODIUM CHLORIDE 0.9% 250 ML IV SCH (12:13)
[2018-02-24 14:25] VITALS: BP 111/57
[2018-02-24] MEDS ORDERED: OMNIPAQUE 350 MG/ML, 100ML BOTTLE ONE (17:24)
[2018-02-24 20:03] VITALS: BP 131/82
[2018-02-24] MEDS: ATORVASTATIN 20 MG TABLET PO SCH (21:20)
[2018-02-25] MEDS: OXYcodone/APAP 10/325MG TABLET PO PRN ×4 (01:22→21:15)
[2018-02-25 03:02] VITALS: BP 121/53
[2018-02-25] MEDS: PIPERACILLIN/TAZO/PMX 3.375GM 50 ML IV SCH ×4 (03:07→21:14)
[2018-02-25] MEDS: GABAPENTIN 100 MG CAPSULE PO SCH (05:30)
[2018-02-25 07:31] VITALS: BP 127/66
[2018-02-25 08:32] LABS: MEAN CORPUSCULAR HEMOGLOBIN 31.1 pg (27.5-34.5); MEAN CORPUSCULAR HGB CONC 32.7 g/dL (33.2-36.2); MEAN CORPUSCULAR VOLUME 95.2 fL (81-97); MEAN PLATELET VOLUME 6.7 fL (7.4-10.4); PLATELET COUNT 404 x10^3/uL (130-400); RED BLOOD COUNT 2.74 x10^6/uL (4.38-5.82)
[2018-02-25 08:41] LABS: ANION GAP 8 mmol/L (5-15); CALCIUM 7.9 mg/dL (8.5-10.1); CHLORIDE 112 mmol/L (98-107); CREATININE 1.12 mg/dL (0.7-1.3)
[2018-02-25] MEDS: MULTIVITAMIN 1 TABLET PO SCH (08:43)
[2018-02-25] MEDS: CLOPIDOGREL 75 MG TABLET PO SCH (08:43)
[2018-02-25] MEDS: MAGNESIUM CHLORIDE 64 MG TABLET.DR PO SCH (08:43)
[2018-02-25] MEDS: METOPROLOL TARTRATE 50 MG TABLET PO SCH ×2 (08:43→21:15)
[2018-02-25] MEDS: INSULIN GLARGINE 100 UNITS/ML, PEN SQ-INSULIN SCH ×2 (08:47→21:16)
[2018-02-25] MEDS: ENOXAPARIN 40 MG/0.4 ML SQ SCH (08:48)
[2018-02-25] MEDS: INSULIN LISPRO 100 UNITS/ML, PEN SQ-INSULIN SCH ×4 (08:50→21:16)
[2018-02-25 09:08] LABS: BASOPHILS # (AUTO) 0.04 x10^3/uL (0-0.1); BASOPHILS % (AUTO) 0 % (0-1); EOSINOPHILS # (AUTO) 0.57 x10^3/uL (0-0.4); EOSINOPHILS % (AUTO) 3 % (1-7); LYMPHOCYTES # (AUTO) 0.96 x10^3/uL (1-3.4); LYMPHOCYTES % (AUTO) 5 % (22-44); MD SCAN; MONOCYTES # (AUTO) 1.99 x10^3/uL (0.2-0.8); MONOCYTES % (AUTO) 11 % (2-9); NEUTROPHILS # (AUTO) 15.31 x10^3/uL (1.8-6.8); NEUTROPHILS % (AUTO) 81 % (42-75)
[2018-02-25] MEDS ORDERED: POTASSIUM CHLORIDE 20 MEQ TAB.ER.PRT PO ONE (10:00)
[2018-02-25] MEDS ORDERED: FUROSEMIDE 40 MG/4 ML IV ONE (10:00)
[2018-02-25] MEDS: GABAPENTIN 300 MG CAPSULE PO SCH ×3 (10:44→21:14)
[2018-02-25 16:00] VITALS: BP 109/63
[2018-02-25 19:36] VITALS: BP 141/64
[2018-02-25] MEDS: ATORVASTATIN 20 MG TABLET PO SCH (21:14)
[2018-02-25] MEDS: VANCOMYCIN 1,500 MG in SODIUM CHLORIDE 0.9% 250 ML IV SCH (23:46)
[2018-02-26] MEDS: DIPHENHYDRAMINE 50 MG CAPSULE PO PRN ×2 (00:11→21:03)
[2018-02-26] MEDS: ACETAMINOPHEN 325 MG TABLET PO PRN (00:11)
[2018-02-26] MEDS: OXYcodone/APAP 10/325MG TABLET PO PRN ×5 (01:08→21:04)
[2018-02-26 02:00] VITALS: BP 108/63
[2018-02-26] MEDS: PIPERACILLIN/TAZO/PMX 3.375GM 50 ML IV SCH ×4 (02:57→21:03)
[2018-02-26 05:03] LABS: MEAN CORPUSCULAR HEMOGLOBIN 31.6 pg (27.5-34.5); MEAN CORPUSCULAR HGB CONC 33.7 g/dL (33.2-36.2); MEAN CORPUSCULAR VOLUME 93.8 fL (81-97); PLATELET COUNT 399 x10^3/uL (130-400); RED CELL DISTRIBUTION WIDTH 13.8 % (9.4-14.8)
[2018-02-26 05:12] LABS: ALBUMIN 1.5 g/dL (3.4-5.0); ANION GAP 8 mmol/L (5-15); CALCIUM 7.7 mg/dL (8.5-10.1); CHLORIDE 111 mmol/L (98-107); CREATININE 1.18 mg/dL (0.7-1.3)
[2018-02-26 05:32] LABS: BASOPHILS # (AUTO) 0.01 x10^3/uL (0-0.1); BASOPHILS % (AUTO) 0 % (0-1); EOSINOPHILS % (AUTO) 3 % (1-7); LYMPHOCYTES # (AUTO) 1.32 x10^3/uL (1-3.4); LYMPHOCYTES % (AUTO) 7 % (22-44); MD SCAN; MONOCYTES # (AUTO) 2.25 x10^3/uL (0.2-0.8); MONOCYTES % (AUTO) 12 % (2-9); NEUTROPHILS % (AUTO) 79 % (42-75)
[2018-02-26] MEDS: GABAPENTIN 300 MG CAPSULE PO SCH ×4 (05:58→21:03)
[2018-02-26] MEDS: INSULIN LISPRO 100 UNITS/ML, PEN SQ-INSULIN SCH ×4 (07:00→21:05)
[2018-02-26 08:39] VITALS: BP 129/70
[2018-02-26] MEDS ORDERED: FUROSEMIDE 40 MG/4 ML IV ONE (09:00)
[2018-02-26] MEDS ORDERED: POTASSIUM CHLORIDE 20 MEQ TAB.ER.PRT PO ONE (09:00)
[2018-02-26] MEDS: MULTIVITAMIN 1 TABLET PO SCH (09:17)
[2018-02-26] MEDS: METOPROLOL TARTRATE 50 MG TABLET PO SCH ×2 (09:17→21:04)
[2018-02-26] MEDS: MAGNESIUM CHLORIDE 64 MG TABLET.DR PO SCH (09:18)
[2018-02-26] MEDS: CLOPIDOGREL 75 MG TABLET PO SCH (09:18)
[2018-02-26] MEDS: ENOXAPARIN 40 MG/0.4 ML SQ SCH (09:18)
[2018-02-26] MEDS: INSULIN GLARGINE 100 UNITS/ML, PEN SQ-INSULIN SCH ×2 (09:22→21:05)
[2018-02-26 09:36] LABS: O2 FLOW 7.5 L/min
[2018-02-26 09:45] LABS: ALBUMIN 1.6 g/dL (3.4-5.0); ANION GAP 8 mmol/L (5-15); CALCIUM 8.1 mg/dL (8.5-10.1); CHLORIDE 110 mmol/L (98-107)
[2018-02-26 09:48] LABS: ALANINE AMINOTRANSFERASE 12 U/L (12-78); ALKALINE PHOSPHATASE 63 U/L (45-117); BILIRUBIN,TOTAL 0.5 mg/dL (0.2-1.0); CREATININE 1.13 mg/dL (0.7-1.3); TOTAL PROTEIN 6.1 g/dL (6.4-8.2)
[2018-02-26 14:35] VITALS: BP 120/62
[2018-02-26] MEDS: GUAIFENESIN 200 MG TABLET PO PRN ×2 (15:21→21:03)
[2018-02-26 18:27] VITALS: BP 122/59
[2018-02-26] MEDS: ATORVASTATIN 20 MG TABLET PO SCH (21:04)
[2018-02-27] MEDS: OXYcodone/APAP 10/325MG TABLET PO PRN ×3 (01:13→12:21)
[2018-02-27 01:27] VITALS: BP 126/71
[2018-02-27] MEDS: PIPERACILLIN/TAZO/PMX 3.375GM 50 ML IV SCH ×4 (02:26→23:05)
[2018-02-27 04:37] LABS: MEAN CORPUSCULAR HEMOGLOBIN 31.3 pg (27.5-34.5); MEAN CORPUSCULAR VOLUME 94.9 fL (81-97); MEAN PLATELET VOLUME 7.2 fL (7.4-10.4); PLATELET COUNT 444 x10^3/uL (130-400); RED BLOOD COUNT 2.88 x10^6/uL (4.38-5.82); RED CELL DISTRIBUTION WIDTH 14.1 % (9.4-14.8)
[2018-02-27 04:50] LABS: BASOPHILS # (AUTO) 0.11 x10^3/uL (0-0.1); BASOPHILS % (AUTO) 1 % (0-1); CHLORIDE 106 mmol/L (98-107); EOSINOPHILS # (AUTO) 0.69 x10^3/uL (0-0.4); EOSINOPHILS % (AUTO) 3 % (1-7); LYMPHOCYTES # (AUTO) 1.17 x10^3/uL (1-3.4); LYMPHOCYTES % (AUTO) 5 % (22-44); MD SCAN; MONOCYTES # (AUTO) 2.52 x10^3/uL (0.2-0.8); MONOCYTES % (AUTO) 10 % (2-9); NEUTROPHILS # (AUTO) 20.14 x10^3/uL (1.8-6.8); NEUTROPHILS % (AUTO) 82 % (42-75)
[2018-02-27 04:57] LABS: ANION GAP 10 mmol/L (5-15); CALCIUM 8.3 mg/dL (8.5-10.1); CREATININE 1.21 mg/dL (0.7-1.3)
[2018-02-27] MEDS: GABAPENTIN 300 MG CAPSULE PO SCH ×4 (05:58→20:49)
[2018-02-27] MEDS: MAGNESIUM CHLORIDE 64 MG TABLET.DR PO SCH (08:28)
[2018-02-27] MEDS: INSULIN LISPRO 100 UNITS/ML, PEN SQ-INSULIN SCH ×5 (08:28→23:06)
[2018-02-27] MEDS: ENOXAPARIN 40 MG/0.4 ML SQ SCH (08:29)
[2018-02-27] MEDS: MULTIVITAMIN 1 TABLET PO SCH (08:29)
[2018-02-27] MEDS: METOPROLOL TARTRATE 50 MG TABLET PO SCH ×2 (08:29→20:33)
[2018-02-27] MEDS: CLOPIDOGREL 75 MG TABLET PO SCH (08:29)
[2018-02-27] MEDS: INSULIN GLARGINE 100 UNITS/ML, PEN SQ-INSULIN SCH ×2 (08:30→21:02)
[2018-02-27 09:00] VITALS: BP 106/90
[2018-02-27] MEDS: VANCOMYCIN 1,500 MG in SODIUM CHLORIDE 0.9% 250 ML IV SCH (12:16)
[2018-02-27] MEDS ORDERED: FUROSEMIDE 40 MG/4 ML IV ONE (14:00)
[2018-02-27] MEDS ORDERED: FUROSEMIDE 40 MG/4 ML ONE (14:07)
[2018-02-27] MEDS ORDERED: methylPREDNISolone SOD SUCC 125 MG/2 ML ONE (14:07)
[2018-02-27] MEDS: methylPREDNISolone SOD SUCC 125 MG/2 ML IVPush SCH ×2 (14:13→20:49)
[2018-02-27] MEDS: METHOCARBAMOL 750 MG TABLET PO PRN (14:44)
[2018-02-27] MEDS: GUAIFENESIN 200 MG TABLET PO PRN (14:44)
[2018-02-27 15:02] LABS: TROPONIN I < 0.015 ng/mL (0.000-0.045)
[2018-02-27] MEDS ORDERED: ROCURONIUM 10 MG/ML,10ML IVPush ONE (17:14)
[2018-02-27] MEDS ORDERED: PROPOFOL 100 ML IV PRN (17:59)
[2018-02-27] MEDS ORDERED: SENNOSIDES 8.8 MG/5 ML ORAL SOL NG PRN (18:00)
[2018-02-27] MEDS ORDERED: BISACODYL 10 MG SUPP PR PRN (18:00)
[2018-02-27] MEDS ORDERED: DEXTROSE 50%, 50ML SYRINGE IVPush PRN (18:00)
[2018-02-27] MEDS ORDERED: DEXTROSE 4 GM TAB.CHEW PO PRN (18:00)
[2018-02-27] MEDS ORDERED: LIDOCAINE-MPF 1%, 2ML ENDO PRN (18:00)
[2018-02-27] MEDS ORDERED: PHARMACY MAY ADJ FOR RENAL FX MC SCH (18:00)
[2018-02-27] MEDS ORDERED: LACTULOSE 20 GM/30 ML UDC NG PRN (18:00)
[2018-02-27] MEDS ORDERED: SENNA/DOCUSATE TABLET NG PRN (18:00)
[2018-02-27] MEDS ORDERED: GLUCAGON 1 MG IM PRN (18:00)
[2018-02-27] MEDS ORDERED: MIDAZOLAM 1 MG/ML, 5ML IVPush ONE (18:00)
[2018-02-27] MEDS: ALBUTEROL/IPRATROPIUM 2.5MG/0.5MG, 3 ML INLINE SCH ×2 (18:00→22:00)
[2018-02-27] MEDS ORDERED: INSULIN LISPRO 100 UNITS/ML, PEN SQ-INSULIN SCH (18:00)
[2018-02-27 18:16] LABS: MICROSCOPIC NOT IND
[2018-02-27 18:21] LABS: CULTURE INDICATED? NO
[2018-02-27] MEDS ORDERED: MIDAZOLAM 1 MG/ML, 2ML ONE ×4 (18:49→23:13)
[2018-02-27] MEDS: FENTANYL PF 100 MCG/2ML IVPush PRN ×3 (18:54→23:05)
[2018-02-27] MEDS ORDERED: MIDAZOLAM 1 MG/ML, 5ML IVPush PRN (19:00)
[2018-02-27] MEDS ORDERED: LACTATED RINGERS 1,000 ML IVBOLUS ONE ×2 (19:00→21:00)
[2018-02-27] MEDS: MIDAZOLAM 1 MG/ML, 5ML IVPush PRN ×3 (19:39→23:15)
[2018-02-27] MEDS: SODIUM CHLORIDE FLUSH 10ML SYR IVF SCH (20:49)
[2018-02-27] MEDS: FAMOTIDINE 20 MG/2 ML IV SCH (20:49)
[2018-02-27] MEDS: ATORVASTATIN 20 MG TABLET PO SCH (20:50)
[2018-02-28] MEDS ORDERED: MIDAZOLAM 1 MG/ML, 2ML ONE ×3 (00:43→03:01)
[2018-02-28] MEDS: MIDAZOLAM 1 MG/ML, 5ML IVPush PRN ×3 (00:45→03:06)
[2018-02-28] MEDS: ALBUTEROL/IPRATROPIUM 2.5MG/0.5MG, 3 ML INLINE SCH ×6 (02:00→22:00)
[2018-02-28] MEDS: FENTANYL PF 100 MCG/2ML IVPush PRN ×5 (02:41→23:59)
[2018-02-28] MEDS: methylPREDNISolone SOD SUCC 125 MG/2 ML IVPush SCH ×2 (02:46→08:42)
[2018-02-28 04:30] VITALS: BP 101/48
[2018-02-28] MEDS: PIPERACILLIN/TAZO/PMX 3.375GM 50 ML IV SCH ×5 (04:59→22:39)
[2018-02-28 05:02] LABS: MEAN CORPUSCULAR HEMOGLOBIN 31.1 pg (27.5-34.5); MEAN CORPUSCULAR HGB CONC 32.8 g/dL (33.2-36.2); MEAN CORPUSCULAR VOLUME 94.7 fL (81-97); MEAN PLATELET VOLUME 7.4 fL (7.4-10.4); PLATELET COUNT 448 x10^3/uL (130-400); RED CELL DISTRIBUTION WIDTH 14.2 % (9.4-14.8)
[2018-02-28 05:12] LABS: CHLORIDE 104 mmol/L (98-107)
[2018-02-28 05:20] LABS: ALANINE AMINOTRANSFERASE 9 U/L (12-78); ALBUMIN 1.3 g/dL (3.4-5.0); ALKALINE PHOSPHATASE 59 U/L (45-117); ANION GAP 13 mmol/L (5-15); BILIRUBIN,TOTAL 0.5 mg/dL (0.2-1.0); CALCIUM 8.3 mg/dL (8.5-10.1); CREATININE 1.22 mg/dL (0.7-1.3)
[2018-02-28] MEDS: INSULIN LISPRO 100 UNITS/ML, PEN SQ-INSULIN SCH ×4 (05:22→23:00)
[2018-02-28 05:44] LABS: BASOPHILS % (AUTO) 0 % (0-1); EOSINOPHILS # (AUTO) 0.01 x10^3/uL (0-0.4); EOSINOPHILS % (AUTO) 0 % (1-7); LYMPHOCYTES # (AUTO) 0.61 x10^3/uL (1-3.4); LYMPHOCYTES % (AUTO) 3 % (22-44); MD SCAN; MONOCYTES # (AUTO) 0.65 x10^3/uL (0.2-0.8); MONOCYTES % (AUTO) 3 % (2-9); NEUTROPHILS # (AUTO) 21.82 x10^3/uL (1.8-6.8); NEUTROPHILS % (AUTO) 95 % (42-75)
[2018-02-28] MEDS: GABAPENTIN 300 MG CAPSULE PO SCH ×4 (06:56→20:43)
[2018-02-28] MEDS: METOPROLOL TARTRATE 50 MG TABLET PO SCH ×2 (08:37→20:43)
[2018-02-28] MEDS: MAGNESIUM CHLORIDE 64 MG TABLET.DR PO SCH (08:39)
[2018-02-28] MEDS: MULTIVITAMIN 1 TABLET PO SCH (08:40)
[2018-02-28] MEDS: CLOPIDOGREL 75 MG TABLET PO SCH (08:42)
[2018-02-28] MEDS: SODIUM CHLORIDE FLUSH 10ML SYR IVF SCH ×2 (08:42→20:43)
[2018-02-28] MEDS: ENOXAPARIN 40 MG/0.4 ML SQ SCH (08:42)
[2018-02-28] MEDS: FAMOTIDINE 20 MG/2 ML IV SCH ×2 (08:42→20:43)
[2018-02-28] MEDS ORDERED: MAGNESIUM SULFATE PMX 2GM/50ML 50 ML IV ONE (09:00)
[2018-02-28] MEDS ORDERED: INSULIN GLARGINE 100 UNITS/ML, PEN SQ-INSULIN SCH ×2 (09:00→21:00)
[2018-02-28] MEDS: MAGNESIUM CARBONATE 54 MG/5 ML ORAL SOL NG SCH (10:15)
[2018-02-28] MEDS: MICAFUNGIN 100 MG in SODIUM CHLORIDE 0.9% 100 ML IV SCH (10:16)
[2018-02-28] MEDS: MULTIVITAMIN LIQUID PO SCH (10:16)
[2018-02-28] MEDS: QUETIAPINE 25MG TABLET PO SCH ×2 (15:53→23:58)
[2018-02-28] MEDS: methylPREDNISolone SOD SUCC 40 MG/ML IVPush SCH (15:53)
[2018-02-28] MEDS: ATORVASTATIN 20 MG TABLET PO SCH (20:43)
[2018-03-01] MEDS: VANCOMYCIN 1,500 MG in SODIUM CHLORIDE 0.9% 250 ML IV SCH (00:02)
[2018-03-01] MEDS: methylPREDNISolone SOD SUCC 40 MG/ML IVPush SCH ×2 (00:35→08:19)
[2018-03-01] MEDS: FENTANYL PF 100 MCG/2ML IVPush PRN ×3 (01:15→13:45)
[2018-03-01] MEDS: ALBUTEROL/IPRATROPIUM 2.5MG/0.5MG, 3 ML INLINE SCH ×6 (02:00→22:00)
[2018-03-01] MEDS: METHOCARBAMOL 750 MG TABLET PO PRN (04:28)
[2018-03-01 04:29] LABS: ANION GAP 11 mmol/L (5-15); CALCIUM 7.9 mg/dL (8.5-10.1); CHLORIDE 105 mmol/L (98-107); CREATININE 1.16 mg/dL (0.7-1.3)
[2018-03-01] MEDS: PIPERACILLIN/TAZO/PMX 3.375GM 50 ML IV SCH ×4 (04:33→23:35)
[2018-03-01 04:35] LABS: MEAN CORPUSCULAR HEMOGLOBIN 30.8 pg (27.5-34.5); MEAN CORPUSCULAR HGB CONC 32.6 g/dL (33.2-36.2); MEAN CORPUSCULAR VOLUME 94.5 fL (81-97); MEAN PLATELET VOLUME 7.8 fL (7.4-10.4); PLATELET COUNT 433 x10^3/uL (130-400); RED BLOOD COUNT 2.26 x10^6/uL (4.38-5.82); RED CELL DISTRIBUTION WIDTH 14.2 % (9.4-14.8)
[2018-03-01] MEDS: INSULIN LISPRO 100 UNITS/ML, PEN SQ-INSULIN SCH ×4 (05:09→23:36)
[2018-03-01 05:19] VITALS: BP 93/40
[2018-03-01 05:41] LABS: BASOPHILS # (AUTO) 0.01 x10^3/uL (0-0.1); BASOPHILS % (AUTO) 0 % (0-1); EOSINOPHILS % (AUTO) 0 % (1-7); LYMPHOCYTES # (AUTO) 0.77 x10^3/uL (1-3.4); LYMPHOCYTES % (AUTO) 3 % (22-44); MD SCAN; MONOCYTES # (AUTO) 1.31 x10^3/uL (0.2-0.8); MONOCYTES % (AUTO) 5 % (2-9); NEUTROPHILS # (AUTO) 23.96 x10^3/uL (1.8-6.8); NEUTROPHILS % (AUTO) 92 % (42-75)
[2018-03-01] MEDS: GABAPENTIN 300 MG CAPSULE PO SCH ×4 (06:12→21:08)
[2018-03-01] MEDS: METOPROLOL TARTRATE 50 MG TABLET PO SCH ×2 (07:43→21:09)
[2018-03-01] MEDS: QUETIAPINE 25MG TABLET PO SCH ×3 (08:19→23:36)
[2018-03-01] MEDS ORDERED: INSULIN GLARGINE 100 UNITS/ML, PEN SQ-INSULIN SCH ×2 (09:00→21:00)
[2018-03-01] MEDS: MICAFUNGIN 100 MG in SODIUM CHLORIDE 0.9% 100 ML IV SCH (11:33)
[2018-03-01] MEDS: SODIUM CHLORIDE FLUSH 10ML SYR IVF SCH ×2 (11:34→21:09)
[2018-03-01] MEDS: MAGNESIUM CARBONATE 54 MG/5 ML ORAL SOL NG SCH (11:34)
[2018-03-01] MEDS: MULTIVITAMIN LIQUID PO SCH (11:35)
[2018-03-01] MEDS: CLOPIDOGREL 75 MG TABLET PO SCH (11:46)
[2018-03-01] MEDS: ENOXAPARIN 40 MG/0.4 ML SQ SCH (11:49)
[2018-03-01] MEDS: FAMOTIDINE 20 MG/2 ML IV SCH ×2 (11:49→21:08)
[2018-03-01] MEDS ORDERED: POTASSIUM CHLORIDE 10% 40 MEQ/30 ML UDC PO ONE (13:30)
[2018-03-01] MEDS: OXYcodone/APAP 10/325MG TABLET PO PRN (19:56)
[2018-03-01] MEDS ORDERED: methylPREDNISolone SOD SUCC 40 MG/ML IVPush SCH (20:30)
[2018-03-01] MEDS: DIPHENHYDRAMINE 50 MG CAPSULE PO PRN (21:08)
[2018-03-01] MEDS: ATORVASTATIN 20 MG TABLET PO SCH (21:08)
[2018-03-02] MEDS: ALBUTEROL/IPRATROPIUM 2.5MG/0.5MG, 3 ML INLINE SCH ×2 (02:00→06:00)
[2018-03-02] MEDS: OXYcodone/APAP 10/325MG TABLET PO PRN ×3 (02:23→19:55)
[2018-03-02] MEDS: DIPHENHYDRAMINE 50 MG CAPSULE PO PRN ×2 (04:14→23:31)
[2018-03-02 04:17] LABS: MEAN CORPUSCULAR HEMOGLOBIN 30.9 pg (27.5-34.5); MEAN CORPUSCULAR HGB CONC 33.1 g/dL (33.2-36.2); MEAN CORPUSCULAR VOLUME 93.6 fL (81-97); MEAN PLATELET VOLUME 7.3 fL (7.4-10.4); PLATELET COUNT 514 x10^3/uL (130-400); RED BLOOD COUNT 2.37 x10^6/uL (4.38-5.82); RED CELL DISTRIBUTION WIDTH 13.9 % (9.4-14.8)
[2018-03-02 04:24] LABS: ANION GAP 9 mmol/L (5-15); CALCIUM 7.7 mg/dL (8.5-10.1); CHLORIDE 106 mmol/L (98-107); TRIGLYCERIDES 100 mg/dL (50-200)
[2018-03-02 04:42] LABS: BASOPHILS # (AUTO) 0.01 x10^3/uL (0-0.1); BASOPHILS % (AUTO) 0 % (0-1); EOSINOPHILS % (AUTO) 0 % (1-7); LYMPHOCYTES # (AUTO) 0.48 x10^3/uL (1-3.4); LYMPHOCYTES % (AUTO) 2 % (22-44); MD SCAN; MONOCYTES # (AUTO) 1.21 x10^3/uL (0.2-0.8); MONOCYTES % (AUTO) 5 % (2-9); NEUTROPHILS % (AUTO) 93 % (42-75)
[2018-03-02 05:00] VITALS: BP 109/53
[2018-03-02] MEDS: PIPERACILLIN/TAZO/PMX 3.375GM 50 ML IV SCH ×4 (05:18→22:55)
[2018-03-02] MEDS: INSULIN LISPRO 100 UNITS/ML, PEN SQ-INSULIN SCH ×5 (05:19→21:00)
[2018-03-02] MEDS: GABAPENTIN 300 MG CAPSULE PO SCH ×4 (06:00→21:10)
[2018-03-02] MEDS: MICAFUNGIN 100 MG in SODIUM CHLORIDE 0.9% 100 ML IV SCH (08:48)
[2018-03-02] MEDS ORDERED: INSULIN GLARGINE 100 UNITS/ML, PEN SQ-INSULIN SCH (09:00)
[2018-03-02] MEDS: METOPROLOL TARTRATE 50 MG TABLET PO SCH ×2 (09:00→21:09)
[2018-03-02] MEDS: CLOPIDOGREL 75 MG TABLET PO SCH (09:24)
[2018-03-02] MEDS: MULTIVITAMIN LIQUID PO SCH (09:25)
[2018-03-02] MEDS: ENOXAPARIN 40 MG/0.4 ML SQ SCH (09:25)
[2018-03-02] MEDS: FAMOTIDINE 20 MG/2 ML IV SCH ×2 (09:25→21:10)
[2018-03-02] MEDS: QUETIAPINE 25MG TABLET PO SCH (09:25)
[2018-03-02] MEDS: MAGNESIUM CARBONATE 54 MG/5 ML ORAL SOL NG SCH (09:26)
[2018-03-02] MEDS: SODIUM CHLORIDE FLUSH 10ML SYR IVF SCH ×2 (09:39→21:10)
[2018-03-02] MEDS ORDERED: SODIUM CHLORIDE 0.9% 1,000 ML IV SCH (11:00)
[2018-03-02] MEDS ORDERED: ALBUTEROL/IPRATROPIUM 2.5MG/0.5MG, 3 ML ONE (11:11)
[2018-03-02] MEDS: ALBUTEROL/IPRATROPIUM 2.5MG/0.5MG, 3 ML NPPB SCH ×3 (11:16→20:10)
[2018-03-02] MEDS: VANCOMYCIN 1,500 MG in SODIUM CHLORIDE 0.9% 250 ML IV SCH (11:21)
[2018-03-02] MEDS ORDERED: VANCOMYCIN 1,400 MG in SODIUM CHLORIDE 0.9% 250 ML IV SCH (14:02)
[2018-03-02] MEDS ORDERED: ALBUTEROL/IPRATROPIUM 2.5MG/0.5MG, 3 ML NPPB PRN (21:00)
[2018-03-02] MEDS: ATORVASTATIN 20 MG TABLET PO SCH (21:09)
[2018-03-03] MEDS ORDERED: FUROSEMIDE 20 MG/2 ML IV ONE ×3 (00:30→21:30)
[2018-03-03 04:17] LABS: MEAN CORPUSCULAR VOLUME 93.9 fL (81-97); MEAN PLATELET VOLUME 6.9 fL (7.4-10.4); PLATELET COUNT 618 x10^3/uL (130-400); RED BLOOD COUNT 2.88 x10^6/uL (4.38-5.82); RED CELL DISTRIBUTION WIDTH 14.2 % (9.4-14.8)
[2018-03-03 04:24] LABS: ALBUMIN 1.6 g/dL (3.4-5.0); ANION GAP 10 mmol/L (5-15); CALCIUM 8.2 mg/dL (8.5-10.1); CHLORIDE 108 mmol/L (98-107); CREATININE 1.11 mg/dL (0.7-1.3)
[2018-03-03 04:36] LABS: MD YES
[2018-03-03 04:38] LABS: EOS% (MANUAL) 5 % (1-7); LYMPH#(MANUAL) 1.92 x10^3/uL (1-3.4); LYMPHS% (MANUAL) 8 % (22-44); MONOS#(MANUAL) 0.72 x10^3/uL (0.3-2.7); MONOS% (MANUAL) 3 % (2-9); MYELOCYTES# (MANUAL) 0.24 x10^3/uL (0-0); MYELOCYTES% (MANUAL) 1 % (0-0); SEG#(MANUAL) 19.92 x10^3/uL (1.8-6.8); SEGS% (MANUAL) 83 % (42-75)
[2018-03-03 04:39] LABS: ANISOCYTOSIS 1+; TEAR DROPS 1+
[2018-03-03 04:40] LABS: <PLATELET ESTIMATE> INCREASED; <PLT MORPHOLOGY> NORMAL PLT MORPH; POLYCHROMASIA 1+
[2018-03-03 05:00] VITALS: BP 132/68
[2018-03-03] MEDS: PIPERACILLIN/TAZO/PMX 3.375GM 50 ML IV SCH ×3 (05:21→20:20)
[2018-03-03] MEDS: OXYcodone/APAP 10/325MG TABLET PO PRN ×2 (06:15→11:25)
[2018-03-03] MEDS: GABAPENTIN 300 MG CAPSULE PO SCH ×4 (06:15→21:40)
[2018-03-03] MEDS: ALBUTEROL/IPRATROPIUM 2.5MG/0.5MG, 3 ML NPPB SCH ×4 (07:00→18:38)
[2018-03-03] MEDS: INSULIN LISPRO 100 UNITS/ML, PEN SQ-INSULIN SCH ×4 (07:00→21:00)
[2018-03-03] MEDS: CLOPIDOGREL 75 MG TABLET PO SCH (08:51)
[2018-03-03] MEDS: FAMOTIDINE 20 MG/2 ML IV SCH (08:51)
[2018-03-03] MEDS: MAGNESIUM CARBONATE 54 MG/5 ML ORAL SOL NG SCH (08:52)
[2018-03-03] MEDS: METOPROLOL TARTRATE 50 MG TABLET PO SCH ×2 (08:52→21:40)
[2018-03-03] MEDS: MICAFUNGIN 100 MG in SODIUM CHLORIDE 0.9% 100 ML IV SCH (08:52)
[2018-03-03] MEDS: SODIUM CHLORIDE FLUSH 10ML SYR IVF SCH ×2 (08:52→21:39)
[2018-03-03] MEDS: MULTIVITAMIN LIQUID PO SCH (08:53)
[2018-03-03] MEDS: ENOXAPARIN 40 MG/0.4 ML SQ SCH (08:53)
[2018-03-03] MEDS: MULTIVITAMIN 1 TABLET PO SCH (09:04)
[2018-03-03 12:59] LABS: CLOSTRIDIUM DIFFICILE ANTIGEN NEGATIVE; CLOSTRIDIUM DIFFICILE TOXIN NEGATIVE (Negative)
[2018-03-03] MEDS ORDERED: POTASSIUM CHLORIDE 20 MEQ TAB.ER.PRT PO ONE (15:00)
[2018-03-03 18:46] LABS: FIO2 83 %
[2018-03-03] MEDS: ATORVASTATIN 20 MG TABLET PO SCH (21:39)
[2018-03-03] MEDS: FAMOTIDINE 20 MG TABLET PO SCH (21:40)
[2018-03-04] MEDS: PIPERACILLIN/TAZO/PMX 3.375GM 50 ML IV SCH ×4 (00:32→19:41)
[2018-03-04] MEDS: OXYcodone/APAP 10/325MG TABLET PO PRN ×4 (00:43→20:00)
[2018-03-04 05:00] VITALS: BP 96/54
[2018-03-04] MEDS: GABAPENTIN 300 MG CAPSULE PO SCH ×4 (05:45→21:36)
[2018-03-04] MEDS: ALBUTEROL/IPRATROPIUM 2.5MG/0.5MG, 3 ML NPPB SCH ×4 (06:33→20:00)
[2018-03-04] MEDS: INSULIN LISPRO 100 UNITS/ML, PEN SQ-INSULIN SCH ×4 (07:00→21:49)
[2018-03-04] MEDS: MULTIVITAMIN 1 TABLET PO SCH (07:52)
[2018-03-04] MEDS: FAMOTIDINE 20 MG TABLET PO SCH ×2 (07:52→21:37)
[2018-03-04] MEDS: METOPROLOL TARTRATE 50 MG TABLET PO SCH ×2 (07:52→21:36)
[2018-03-04] MEDS: QUETIAPINE 25MG TABLET PO SCH ×2 (07:52→21:00)
[2018-03-04] MEDS: CLOPIDOGREL 75 MG TABLET PO SCH (07:52)
[2018-03-04] MEDS: ENOXAPARIN 40 MG/0.4 ML SQ SCH (07:52)
[2018-03-04] MEDS: SODIUM CHLORIDE FLUSH 10ML SYR IVF SCH ×2 (07:53→21:36)
[2018-03-04] MEDS: MAGNESIUM CARBONATE 54 MG/5 ML ORAL SOL NG SCH (08:03)
[2018-03-04] MEDS: MICAFUNGIN 100 MG in SODIUM CHLORIDE 0.9% 100 ML IV SCH (08:05)
[2018-03-04] MEDS: ATORVASTATIN 20 MG TABLET PO SCH (21:36)
[2018-03-05] MEDS: PIPERACILLIN/TAZO/PMX 3.375GM 50 ML IV SCH ×2 (00:50→08:10)
[2018-03-05] MEDS: OXYcodone/APAP 10/325MG TABLET PO PRN ×3 (02:30→19:06)
[2018-03-05 05:00] VITALS: BP 108/84
[2018-03-05 05:02] LABS: MEAN CORPUSCULAR HEMOGLOBIN 31.3 pg (27.5-34.5); MEAN CORPUSCULAR HGB CONC 33.6 g/dL (33.2-36.2); MEAN CORPUSCULAR VOLUME 93.3 fL (81-97); MEAN PLATELET VOLUME 7.1 fL (7.4-10.4); PLATELET COUNT 593 x10^3/uL (130-400); RED BLOOD COUNT 2.97 x10^6/uL (4.38-5.82); RED CELL DISTRIBUTION WIDTH 14.6 % (9.4-14.8)
[2018-03-05 05:16] LABS: ALBUMIN 1.5 g/dL (3.4-5.0); ANION GAP 6 mmol/L (5-15); CALCIUM 8.1 mg/dL (8.5-10.1); CHLORIDE 106 mmol/L (98-107)
[2018-03-05 05:32] LABS: ALANINE AMINOTRANSFERASE 10 U/L (12-78); ALKALINE PHOSPHATASE 59 U/L (45-117); BILIRUBIN,TOTAL 0.6 mg/dL (0.2-1.0); TOTAL PROTEIN 5.9 g/dL (6.4-8.2)
[2018-03-05 05:36] LABS: MD YES
[2018-03-05 05:40] LABS: ANISOCYTOSIS 1+; EOS#(MANUAL) 1.07 x10^3/uL (0.0-0.4); EOS% (MANUAL) 5 % (1-7); LYMPH#(MANUAL) 1.07 x10^3/uL (1-3.4); LYMPHS% (MANUAL) 5 % (22-44); METAMYELOCYTES# (MANUAL) 0.21 x10^3/uL (0-0); METAMYELOCYTES% (MANUAL) 1 % (0-1); MONOS% (MANUAL) 7 % (2-9); SEG#(MANUAL) 17.55 x10^3/uL (1.8-6.8); SEGS% (MANUAL) 82 % (42-75)
[2018-03-05 05:41] LABS: <PLATELET ESTIMATE> INCREASED; <PLT MORPHOLOGY> NORMAL PLT MORPH; POLYCHROMASIA 1+
[2018-03-05] MEDS: GABAPENTIN 300 MG CAPSULE PO SCH ×4 (06:30→21:33)
[2018-03-05] MEDS: INSULIN LISPRO 100 UNITS/ML, PEN SQ-INSULIN SCH ×4 (07:00→22:25)
[2018-03-05] MEDS: ALBUTEROL/IPRATROPIUM 2.5MG/0.5MG, 3 ML NPPB SCH ×4 (07:12→19:47)
[2018-03-05] MEDS: ENOXAPARIN 40 MG/0.4 ML SQ SCH (08:36)
[2018-03-05] MEDS: METOPROLOL TARTRATE 50 MG TABLET PO SCH ×2 (08:37→21:32)
[2018-03-05] MEDS: FAMOTIDINE 20 MG TABLET PO SCH ×2 (08:37→21:32)
[2018-03-05] MEDS: CLOPIDOGREL 75 MG TABLET PO SCH (08:37)
[2018-03-05] MEDS: QUETIAPINE 25MG TABLET PO SCH (08:37)
[2018-03-05] MEDS: MULTIVITAMIN 1 TABLET PO SCH (08:37)
[2018-03-05] MEDS: SODIUM CHLORIDE FLUSH 10ML SYR IVF SCH ×2 (08:38→21:33)
[2018-03-05] MEDS: MICAFUNGIN 100 MG in SODIUM CHLORIDE 0.9% 100 ML IV SCH (09:16)
[2018-03-05] MEDS: MAGNESIUM CARBONATE 54 MG/5 ML ORAL SOL NG SCH (09:42)
[2018-03-05] MEDS ORDERED: FUROSEMIDE 20 MG/2 ML IV ONE (10:00)
[2018-03-05 10:56] VITALS: BP 104/66
[2018-03-05 15:50] VITALS: BP 100/65
[2018-03-05 18:43] VITALS: BP 123/74
[2018-03-05] MEDS: ATORVASTATIN 20 MG TABLET PO SCH (21:32)
[2018-03-06 02:38] VITALS: BP_SYST 117; BP_SYST 123; BP_DIAS 68; BP_DIAS 74
[2018-03-06] MEDS: OXYcodone/APAP 10/325MG TABLET PO PRN ×5 (02:45→23:13)
[2018-03-06] MEDS: GABAPENTIN 300 MG CAPSULE PO SCH ×5 (06:05→23:14)
[2018-03-06] MEDS: ALBUTEROL/IPRATROPIUM 2.5MG/0.5MG, 3 ML NPPB SCH ×4 (06:53→19:50)
[2018-03-06] MEDS: INSULIN LISPRO 100 UNITS/ML, PEN SQ-INSULIN SCH ×4 (08:05→21:38)
[2018-03-06] MEDS: CLOPIDOGREL 75 MG TABLET PO SCH (08:05)
[2018-03-06] MEDS: FAMOTIDINE 20 MG TABLET PO SCH (08:05)
[2018-03-06 08:06] VITALS: BP 132/55
[2018-03-06] MEDS: MULTIVITAMIN 1 TABLET PO SCH (08:06)
[2018-03-06] MEDS: METOPROLOL TARTRATE 50 MG TABLET PO SCH ×2 (08:06→21:35)
[2018-03-06] MEDS: SODIUM CHLORIDE FLUSH 10ML SYR IVF SCH ×2 (08:06→21:35)
[2018-03-06] MEDS: ENOXAPARIN 40 MG/0.4 ML SQ SCH (08:06)
[2018-03-06 08:21] LABS: MEAN CORPUSCULAR HEMOGLOBIN 30.6 pg (27.5-34.5); MEAN CORPUSCULAR HGB CONC 32.5 g/dL (33.2-36.2); MEAN CORPUSCULAR VOLUME 94.1 fL (81-97); MEAN PLATELET VOLUME 6.8 fL (7.4-10.4); PLATELET COUNT 604 x10^3/uL (130-400); RED BLOOD COUNT 2.93 x10^6/uL (4.38-5.82); RED CELL DISTRIBUTION WIDTH 14.8 % (9.4-14.8)
[2018-03-06 08:47] LABS: BASOPHILS # (AUTO) 0.05 x10^3/uL (0-0.1); BASOPHILS % (AUTO) 0 % (0-1); EOSINOPHILS # (AUTO) 1.28 x10^3/uL (0-0.4); EOSINOPHILS % (AUTO) 6 % (1-7); LYMPHOCYTES # (AUTO) 0.94 x10^3/uL (1-3.4); LYMPHOCYTES % (AUTO) 4 % (22-44); MD SCAN; MONOCYTES # (AUTO) 1.42 x10^3/uL (0.2-0.8); MONOCYTES % (AUTO) 7 % (2-9); NEUTROPHILS # (AUTO) 18.27 x10^3/uL (1.8-6.8); NEUTROPHILS % (AUTO) 83 % (42-75)
[2018-03-06] MEDS: MAGNESIUM CHLORIDE 64 MG TABLET.DR PO SCH (11:13)
[2018-03-06] MEDS: FLUCONAZOLE 200 MG TABLET PO SCH (11:13)
[2018-03-06] MEDS ORDERED: FUROSEMIDE 40 MG/4 ML IV ONE (15:00)
[2018-03-06 15:32] VITALS: BP 125/75
[2018-03-06 19:45] VITALS: BP 122/69
[2018-03-06] MEDS: ATORVASTATIN 20 MG TABLET PO SCH ×2 (21:35→23:14)
[2018-03-06] MEDS: INSULIN GLARGINE 100 UNITS/ML, PEN SQ-INSULIN SCH (21:37)
[2018-03-07 01:17] VITALS: BP 129/71
[2018-03-07] MEDS: OXYcodone/APAP 10/325MG TABLET PO PRN ×2 (03:26→14:58)
[2018-03-07 05:29] LABS: MEAN CORPUSCULAR HEMOGLOBIN 30.6 pg (27.5-34.5); MEAN CORPUSCULAR HGB CONC 32.5 g/dL (33.2-36.2); MEAN CORPUSCULAR VOLUME 94.2 fL (81-97); MEAN PLATELET VOLUME 7.2 fL (7.4-10.4); PLATELET COUNT 595 x10^3/uL (130-400); RED BLOOD COUNT 2.91 x10^6/uL (4.38-5.82); RED CELL DISTRIBUTION WIDTH 14.3 % (9.4-14.8)
[2018-03-07 05:31] LABS: ANION GAP 8 mmol/L (5-15); CALCIUM 7.9 mg/dL (8.5-10.1); CHLORIDE 102 mmol/L (98-107); CREATININE 0.83 mg/dL (0.7-1.3)
[2018-03-07 05:48] LABS: BASOPHILS # (AUTO) 0.01 x10^3/uL (0-0.1); BASOPHILS % (AUTO) 0 % (0-1); EOSINOPHILS # (AUTO) 0.83 x10^3/uL (0-0.4); EOSINOPHILS % (AUTO) 4 % (1-7); LYMPHOCYTES # (AUTO) 1.17 x10^3/uL (1-3.4); LYMPHOCYTES % (AUTO) 5 % (22-44); MD SCAN; MONOCYTES # (AUTO) 1.88 x10^3/uL (0.2-0.8); MONOCYTES % (AUTO) 8 % (2-9); NEUTROPHILS # (AUTO) 20.25 x10^3/uL (1.8-6.8); NEUTROPHILS % (AUTO) 84 % (42-75)
[2018-03-07] MEDS: GABAPENTIN 300 MG CAPSULE PO SCH ×4 (06:03→21:59)
[2018-03-07 06:27] VITALS: BP 136/77
[2018-03-07] MEDS: ALBUTEROL/IPRATROPIUM 2.5MG/0.5MG, 3 ML NPPB SCH ×4 (07:09→19:27)
[2018-03-07] MEDS: FLUCONAZOLE 200 MG TABLET PO SCH (07:35)
[2018-03-07] MEDS: SODIUM CHLORIDE FLUSH 10ML SYR IVF SCH ×2 (07:35→21:59)
[2018-03-07] MEDS: MULTIVITAMIN 1 TABLET PO SCH (07:36)
[2018-03-07] MEDS: MAGNESIUM CHLORIDE 64 MG TABLET.DR PO SCH (07:36)
[2018-03-07] MEDS: ENOXAPARIN 40 MG/0.4 ML SQ SCH (07:36)
[2018-03-07] MEDS: CLOPIDOGREL 75 MG TABLET PO SCH (07:36)
[2018-03-07] MEDS: METOPROLOL TARTRATE 50 MG TABLET PO SCH ×2 (07:37→22:00)
[2018-03-07] MEDS: INSULIN GLARGINE 100 UNITS/ML, PEN SQ-INSULIN SCH ×2 (07:39→23:09)
[2018-03-07] MEDS: INSULIN LISPRO 100 UNITS/ML, PEN SQ-INSULIN SCH ×4 (07:40→22:05)
[2018-03-07 08:22] LABS: ALBUMIN 1.5 g/dL (3.4-5.0); BILIRUBIN, DIRECT 0.2 mg/dL (0.1-0.2)
[2018-03-07 08:23] LABS: BILIRUBIN,TOTAL 0.2 mg/dL (0.2-1.0); TOTAL PROTEIN 5.8 g/dL (6.4-8.2)
[2018-03-07 12:43] VITALS: BP 106/72
[2018-03-07] MEDS ORDERED: OMNIPAQUE 350 MG/ML, 100ML BOTTLE ONE (13:47)
[2018-03-07 14:46] LABS: MICROSCOPIC AUTO
[2018-03-07 14:48] LABS: CULTURE INDICATED? YES
[2018-03-07] MEDS: GUAIFENESIN 200 MG TABLET PO PRN ×2 (17:18→23:25)
[2018-03-07 19:58] VITALS: BP 117/69
[2018-03-08 01:02] VITALS: BP 130/77
[2018-03-08] MEDS: DIPHENHYDRAMINE 50 MG CAPSULE PO PRN (01:55)
[2018-03-08] MEDS: GABAPENTIN 300 MG CAPSULE PO SCH ×4 (06:19→21:16)
[2018-03-08] MEDS: OXYcodone/APAP 10/325MG TABLET PO PRN ×3 (06:24→21:16)
[2018-03-08 06:35] LABS: MEAN CORPUSCULAR HEMOGLOBIN 30.8 pg (27.5-34.5); MEAN CORPUSCULAR HGB CONC 32.9 g/dL (33.2-36.2); MEAN CORPUSCULAR VOLUME 93.6 fL (81-97); PLATELET COUNT 664 x10^3/uL (130-400); RED BLOOD COUNT 3.02 x10^6/uL (4.38-5.82); RED CELL DISTRIBUTION WIDTH 14.7 % (9.4-14.8)
[2018-03-08 06:40] LABS: ALANINE AMINOTRANSFERASE 22 U/L (12-78); ALBUMIN 1.6 g/dL (3.4-5.0); ANION GAP 9 mmol/L (5-15); CALCIUM 8.6 mg/dL (8.5-10.1); CHLORIDE 103 mmol/L (98-107)
[2018-03-08 06:42] LABS: ALKALINE PHOSPHATASE 80 U/L (45-117); BILIRUBIN,TOTAL 0.3 mg/dL (0.2-1.0); CREATININE 0.74 mg/dL (0.7-1.3); TOTAL PROTEIN 6.3 g/dL (6.4-8.2)
[2018-03-08] MEDS: INSULIN LISPRO 100 UNITS/ML, PEN SQ-INSULIN SCH ×4 (07:00→21:17)
[2018-03-08] MEDS: ALBUTEROL/IPRATROPIUM 2.5MG/0.5MG, 3 ML NPPB SCH ×4 (07:00→19:27)
[2018-03-08 07:12] LABS: BASOPHILS % (AUTO) 0 % (0-1); EOSINOPHILS # (AUTO) 0.54 x10^3/uL (0-0.4); EOSINOPHILS % (AUTO) 2 % (1-7); LYMPHOCYTES # (AUTO) 0.89 x10^3/uL (1-3.4); LYMPHOCYTES % (AUTO) 4 % (22-44); MD SCAN; MONOCYTES # (AUTO) 2.17 x10^3/uL (0.2-0.8); MONOCYTES % (AUTO) 10 % (2-9); NEUTROPHILS # (AUTO) 18.57 x10^3/uL (1.8-6.8); NEUTROPHILS % (AUTO) 84 % (42-75)
[2018-03-08] MEDS: SODIUM CHLORIDE FLUSH 10ML SYR IVF SCH ×2 (07:59→21:15)
[2018-03-08] MEDS: CLOPIDOGREL 75 MG TABLET PO SCH (08:00)
[2018-03-08] MEDS: FLUCONAZOLE 200 MG TABLET PO SCH (08:00)
[2018-03-08] MEDS: MAGNESIUM CHLORIDE 64 MG TABLET.DR PO SCH (08:00)
[2018-03-08] MEDS: INSULIN GLARGINE 100 UNITS/ML, PEN SQ-INSULIN SCH ×2 (08:01→21:17)
[2018-03-08] MEDS: ENOXAPARIN 40 MG/0.4 ML SQ SCH (08:01)
[2018-03-08] MEDS: METOPROLOL TARTRATE 50 MG TABLET PO SCH ×2 (08:02→21:16)
[2018-03-08] MEDS: MULTIVITAMIN 1 TABLET PO SCH (08:04)
[2018-03-08 08:19] VITALS: BP 131/62
[2018-03-08] MEDS ORDERED: FUROSEMIDE 40 MG/4 ML IV ONE (11:00)
[2018-03-08] MEDS: GUAIFENESIN 200 MG TABLET PO PRN (11:14)
[2018-03-08 14:00] VITALS: BP 126/76
[2018-03-08 19:19] VITALS: BP 123/71
[2018-03-08] MEDS: ATORVASTATIN 20 MG TABLET PO SCH (21:16)
[2018-03-09 01:05] VITALS: BP 130/74
[2018-03-09] MEDS: GABAPENTIN 300 MG CAPSULE PO SCH ×4 (05:33→21:38)
[2018-03-09] MEDS: OXYcodone/APAP 10/325MG TABLET PO PRN ×3 (05:33→17:52)
[2018-03-09 05:34] LABS: MEAN CORPUSCULAR HEMOGLOBIN 30.4 pg (27.5-34.5); MEAN CORPUSCULAR HGB CONC 32.7 g/dL (33.2-36.2); MEAN CORPUSCULAR VOLUME 92.9 fL (81-97); MEAN PLATELET VOLUME 7.2 fL (7.4-10.4); PLATELET COUNT 596 x10^3/uL (130-400); RED BLOOD COUNT 2.98 x10^6/uL (4.38-5.82)
[2018-03-09] MEDS: GUAIFENESIN 200 MG TABLET PO PRN ×2 (05:46→13:20)
[2018-03-09 05:57] LABS: MD YES
[2018-03-09 05:59] LABS: EOS#(MANUAL) 0.22 x10^3/uL (0.0-0.4); EOS% (MANUAL) 1 % (1-7); LYMPH#(MANUAL) 0.88 x10^3/uL (1-3.4); LYMPHS% (MANUAL) 4 % (22-44); METAMYELOCYTES# (MANUAL) 0.22 x10^3/uL (0-0); METAMYELOCYTES% (MANUAL) 1 % (0-1); MONOS#(MANUAL) 1.31 x10^3/uL (0.3-2.7); MONOS% (MANUAL) 6 % (2-9); SEG#(MANUAL) 19.27 x10^3/uL (1.8-6.8); SEGS% (MANUAL) 88 % (42-75)
[2018-03-09 06:01] LABS: <PLATELET ESTIMATE> INCREASED; <RBC MORPHOLOGY> NORMAL
[2018-03-09 06:02] LABS: <PLT MORPHOLOGY> NORMAL PLT MORPH
[2018-03-09] MEDS: INSULIN LISPRO 100 UNITS/ML, PEN SQ-INSULIN SCH ×4 (07:00→21:39)
[2018-03-09] MEDS: ALBUTEROL/IPRATROPIUM 2.5MG/0.5MG, 3 ML NPPB SCH ×4 (07:00→19:00)
[2018-03-09 08:25] VITALS: BP 131/71
[2018-03-09] MEDS: INSULIN GLARGINE 100 UNITS/ML, PEN SQ-INSULIN SCH ×2 (09:48→23:25)
[2018-03-09] MEDS: CLOPIDOGREL 75 MG TABLET PO SCH (09:49)
[2018-03-09] MEDS: MULTIVITAMIN 1 TABLET PO SCH (09:49)
[2018-03-09] MEDS: ENOXAPARIN 40 MG/0.4 ML SQ SCH (09:49)
[2018-03-09] MEDS: MAGNESIUM CHLORIDE 64 MG TABLET.DR PO SCH (09:49)
[2018-03-09] MEDS: FLUCONAZOLE 200 MG TABLET PO SCH (09:50)
[2018-03-09] MEDS: METOPROLOL TARTRATE 50 MG TABLET PO SCH ×2 (09:50→21:38)
[2018-03-09] MEDS: SODIUM CHLORIDE FLUSH 10ML SYR IVF SCH ×2 (09:50→21:39)
[2018-03-09 14:24] VITALS: BP 123/56
[2018-03-09 20:43] VITALS: BP 130/55
[2018-03-09] MEDS: ATORVASTATIN 20 MG TABLET PO SCH (21:38)
[2018-03-10] MEDS: OXYcodone/APAP 10/325MG TABLET PO PRN ×5 (03:55→21:52)
[2018-03-10] MEDS: GUAIFENESIN 200 MG TABLET PO PRN ×2 (03:55→21:52)
[2018-03-10 04:00] VITALS: BP 125/68
[2018-03-10 05:42] VITALS: BP 125/68
[2018-03-10] MEDS: GABAPENTIN 300 MG CAPSULE PO SCH ×4 (06:28→22:08)
[2018-03-10] MEDS: INSULIN LISPRO 100 UNITS/ML, PEN SQ-INSULIN SCH ×4 (07:00→22:07)
[2018-03-10 08:00] VITALS: BP 118/73
[2018-03-10] MEDS: SODIUM CHLORIDE FLUSH 10ML SYR IVF SCH ×2 (08:38→22:11)
[2018-03-10] MEDS: METOPROLOL TARTRATE 50 MG TABLET PO SCH ×2 (08:39→22:08)
[2018-03-10] MEDS: CLOPIDOGREL 75 MG TABLET PO SCH (08:39)
[2018-03-10] MEDS: MAGNESIUM CHLORIDE 64 MG TABLET.DR PO SCH (08:39)
[2018-03-10] MEDS: MULTIVITAMIN 1 TABLET PO SCH (08:39)
[2018-03-10] MEDS: INSULIN GLARGINE 100 UNITS/ML, PEN SQ-INSULIN SCH ×2 (08:39→22:08)
[2018-03-10] MEDS: FLUCONAZOLE 200 MG TABLET PO SCH (08:40)
[2018-03-10] MEDS: ENOXAPARIN 40 MG/0.4 ML SQ SCH (08:40)
[2018-03-10 14:00] VITALS: BP 133/81
[2018-03-10 19:55] VITALS: BP 144/75
[2018-03-10] MEDS: ATORVASTATIN 20 MG TABLET PO SCH (22:08)
[2018-03-11 01:03] VITALS: BP 118/80
[2018-03-11] MEDS: OXYcodone/APAP 10/325MG TABLET PO PRN ×3 (03:49→21:51)
[2018-03-11] MEDS: GABAPENTIN 300 MG CAPSULE PO SCH ×4 (05:31→22:03)
[2018-03-11 06:12] LABS: MEAN CORPUSCULAR HEMOGLOBIN 30.1 pg (27.5-34.5); MEAN CORPUSCULAR HGB CONC 32.3 g/dL (33.2-36.2); MEAN CORPUSCULAR VOLUME 93.1 fL (81-97); PLATELET COUNT 655 x10^3/uL (130-400); RED BLOOD COUNT 3.21 x10^6/uL (4.38-5.82)
[2018-03-11 06:26] LABS: ALBUMIN 1.5 g/dL (3.4-5.0); CHLORIDE 100 mmol/L (98-107)
[2018-03-11 06:35] LABS: ALANINE AMINOTRANSFERASE 19 U/L (12-78); ALKALINE PHOSPHATASE 89 U/L (45-117); ANION GAP 8 mmol/L (5-15); BILIRUBIN,TOTAL 0.5 mg/dL (0.2-1.0); CALCIUM 8.8 mg/dL (8.5-10.1); CREATININE 0.79 mg/dL (0.7-1.3); TOTAL PROTEIN 6.5 g/dL (6.4-8.2)
[2018-03-11 06:37] LABS: C-REACTIVE PROTEIN, QUANT > 19.00 mg/dL (0.02-0.49)
[2018-03-11 06:38] VITALS: BP 120/68
[2018-03-11] MEDS: INSULIN LISPRO 100 UNITS/ML, PEN SQ-INSULIN SCH ×4 (07:00→22:04)
[2018-03-11 07:44] LABS: MD YES
[2018-03-11 07:46] LABS: EOS#(MANUAL) 0.68 x10^3/uL (0.0-0.4); EOS% (MANUAL) 3 % (1-7); LYMPHS% (MANUAL) 4 % (22-44); MONOS#(MANUAL) 2.26 x10^3/uL (0.3-2.7); MONOS% (MANUAL) 10 % (2-9); SEG#(MANUAL) 18.76 x10^3/uL (1.8-6.8); SEGS% (MANUAL) 83 % (42-75)
[2018-03-11 07:47] LABS: <PLATELET ESTIMATE> INCREASED; <PLT MORPHOLOGY> NORMAL PLT MORPH; ANISOCYTOSIS 1+; POLYCHROMASIA 1+
[2018-03-11 08:18] LABS: HCT (SEDRATE) 29.9 % (39.2-51.8)
[2018-03-11] MEDS: CLOPIDOGREL 75 MG TABLET PO SCH (08:59)
[2018-03-11] MEDS: FLUCONAZOLE 200 MG TABLET PO SCH (08:59)
[2018-03-11] MEDS: MULTIVITAMIN 1 TABLET PO SCH (08:59)
[2018-03-11] MEDS: SODIUM CHLORIDE FLUSH 10ML SYR IVF SCH ×2 (08:59→22:09)
[2018-03-11] MEDS: ENOXAPARIN 40 MG/0.4 ML SQ SCH (08:59)
[2018-03-11] MEDS: INSULIN GLARGINE 100 UNITS/ML, PEN SQ-INSULIN SCH ×2 (09:00→22:04)
[2018-03-11] MEDS: MAGNESIUM CHLORIDE 64 MG TABLET.DR PO SCH (09:02)
[2018-03-11] MEDS: METOPROLOL TARTRATE 50 MG TABLET PO SCH ×2 (09:02→22:03)
[2018-03-11] MEDS ORDERED: OMNIPAQUE 350 MG/ML, 100ML BOTTLE ONE (11:57)
[2018-03-11 12:09] VITALS: BP 133/67
[2018-03-11] MEDS: GUAIFENESIN 200 MG TABLET PO PRN ×2 (12:49→22:08)
[2018-03-11] MEDS: FUROSEMIDE 40 MG/4 ML IV SCH (16:36)
[2018-03-11 19:19] VITALS: BP 117/69
[2018-03-11] MEDS: ATORVASTATIN 20 MG TABLET PO SCH (22:03)
[2018-03-12 02:33] VITALS: BP 114/70
[2018-03-12] MEDS: GABAPENTIN 300 MG CAPSULE PO SCH ×4 (05:41→20:18)
[2018-03-12 06:32] LABS: MEAN CORPUSCULAR HEMOGLOBIN 29.8 pg (27.5-34.5); MEAN CORPUSCULAR HGB CONC 32.3 g/dL (33.2-36.2); MEAN CORPUSCULAR VOLUME 92.1 fL (81-97); MEAN PLATELET VOLUME 6.9 fL (7.4-10.4); PLATELET COUNT 628 x10^3/uL (130-400); RED BLOOD COUNT 3.13 x10^6/uL (4.38-5.82); RED CELL DISTRIBUTION WIDTH 15.1 % (9.4-14.8)
[2018-03-12 06:46] LABS: BASOPHILS # (AUTO) 0.18 x10^3/uL (0-0.1); BASOPHILS % (AUTO) 1 % (0-1); EOSINOPHILS # (AUTO) 0.47 x10^3/uL (0-0.4); EOSINOPHILS % (AUTO) 2 % (1-7); LYMPHOCYTES # (AUTO) 0.82 x10^3/uL (1-3.4); LYMPHOCYTES % (AUTO) 4 % (22-44); MD SCAN; MONOCYTES # (AUTO) 2.03 x10^3/uL (0.2-0.8); MONOCYTES % (AUTO) 9 % (2-9); NEUTROPHILS # (AUTO) 18.82 x10^3/uL (1.8-6.8); NEUTROPHILS % (AUTO) 84 % (42-75)
[2018-03-12] MEDS: GUAIFENESIN 200 MG TABLET PO PRN ×2 (07:03→19:37)
[2018-03-12] MEDS: OXYcodone/APAP 10/325MG TABLET PO PRN ×3 (07:03→19:37)
[2018-03-12 07:30] VITALS: BP 120/68
[2018-03-12] MEDS: INSULIN LISPRO 100 UNITS/ML, PEN SQ-INSULIN SCH ×4 (07:57→20:21)
[2018-03-12] MEDS: SODIUM CHLORIDE FLUSH 10ML SYR IVF SCH ×2 (07:57→20:18)
[2018-03-12] MEDS: FLUCONAZOLE 200 MG TABLET PO SCH (07:58)
[2018-03-12] MEDS: MAGNESIUM CHLORIDE 64 MG TABLET.DR PO SCH (07:58)
[2018-03-12] MEDS: ENOXAPARIN 40 MG/0.4 ML SQ SCH (07:58)
[2018-03-12] MEDS: FUROSEMIDE 40 MG/4 ML IV SCH ×2 (07:58→16:33)
[2018-03-12] MEDS: CLOPIDOGREL 75 MG TABLET PO SCH (07:58)
[2018-03-12] MEDS: MULTIVITAMIN 1 TABLET PO SCH (07:59)
[2018-03-12] MEDS: METOPROLOL TARTRATE 50 MG TABLET PO SCH ×2 (08:00→20:21)
[2018-03-12] MEDS: INSULIN GLARGINE 100 UNITS/ML, PEN SQ-INSULIN SCH ×2 (08:00→20:22)
[2018-03-12 13:36] VITALS: BP 106/68
[2018-03-12 19:39] VITALS: BP 122/68
[2018-03-12] MEDS: ATORVASTATIN 20 MG TABLET PO SCH (20:18)
[2018-03-12] MEDS: METHOCARBAMOL 750 MG TABLET PO PRN (21:33)
[2018-03-12] MEDS: DIPHENHYDRAMINE 50 MG CAPSULE PO PRN (21:33)
[2018-03-13 02:26] VITALS: BP 106/58
[2018-03-13 05:09] LABS: MEAN CORPUSCULAR HEMOGLOBIN 29.5 pg (27.5-34.5); MEAN CORPUSCULAR HGB CONC 32.1 g/dL (33.2-36.2); MEAN CORPUSCULAR VOLUME 91.8 fL (81-97); MEAN PLATELET VOLUME 7.1 fL (7.4-10.4); PLATELET COUNT 539 x10^3/uL (130-400); RED BLOOD COUNT 3.14 x10^6/uL (4.38-5.82); RED CELL DISTRIBUTION WIDTH 15.4 % (9.4-14.8)
[2018-03-13] MEDS: OXYcodone/APAP 10/325MG TABLET PO PRN ×4 (05:16→21:29)
[2018-03-13] MEDS: GABAPENTIN 300 MG CAPSULE PO SCH ×4 (05:16→21:30)
[2018-03-13 05:26] LABS: ANION GAP 8 mmol/L (5-15); CALCIUM 8.3 mg/dL (8.5-10.1); CHLORIDE 98 mmol/L (98-107)
[2018-03-13 05:27] LABS: CREATININE 0.97 mg/dL (0.7-1.3)
[2018-03-13 05:43] LABS: BASOPHILS # (AUTO) 0.01 x10^3/uL (0-0.1); BASOPHILS % (AUTO) 0 % (0-1); EOSINOPHILS # (AUTO) 0.33 x10^3/uL (0-0.4); EOSINOPHILS % (AUTO) 2 % (1-7); LYMPHOCYTES # (AUTO) 0.85 x10^3/uL (1-3.4); LYMPHOCYTES % (AUTO) 4 % (22-44); MD SCAN; MONOCYTES # (AUTO) 1.83 x10^3/uL (0.2-0.8); MONOCYTES % (AUTO) 9 % (2-9); NEUTROPHILS # (AUTO) 17.56 x10^3/uL (1.8-6.8); NEUTROPHILS % (AUTO) 85 % (42-75)
[2018-03-13 06:26] VITALS: BP 116/68
[2018-03-13] MEDS: INSULIN LISPRO 100 UNITS/ML, PEN SQ-INSULIN SCH ×4 (07:49→21:29)
[2018-03-13] MEDS: MULTIVITAMIN 1 TABLET PO SCH (07:50)
[2018-03-13] MEDS: SODIUM CHLORIDE FLUSH 10ML SYR IVF SCH ×2 (07:50→21:28)
[2018-03-13] MEDS: MAGNESIUM CHLORIDE 64 MG TABLET.DR PO SCH (07:50)
[2018-03-13] MEDS: CLOPIDOGREL 75 MG TABLET PO SCH (07:50)
[2018-03-13] MEDS: METOPROLOL TARTRATE 50 MG TABLET PO SCH ×2 (07:50→21:30)
[2018-03-13] MEDS: FUROSEMIDE 40 MG/4 ML IV SCH ×2 (07:50→16:55)
[2018-03-13] MEDS: FLUCONAZOLE 200 MG TABLET PO SCH (07:50)
[2018-03-13] MEDS: ENOXAPARIN 40 MG/0.4 ML SQ SCH (07:51)
[2018-03-13] MEDS: INSULIN GLARGINE 100 UNITS/ML, PEN SQ-INSULIN SCH ×2 (07:51→21:28)
[2018-03-13] MEDS: DOCUSATE 100 MG CAPSULE PO SCH (09:00)
[2018-03-13 14:00] VITALS: BP 102/61
[2018-03-13 19:37] VITALS: BP 115/61
[2018-03-13] MEDS: GUAIFENESIN 200 MG TABLET PO PRN (21:29)
[2018-03-13] MEDS: ATORVASTATIN 20 MG TABLET PO SCH (21:29)
[2018-03-14 02:13] VITALS: BP 109/70
[2018-03-14] MEDS: GABAPENTIN 300 MG CAPSULE PO SCH ×4 (05:35→20:27)
[2018-03-14] MEDS ORDERED: ALBUTEROL/IPRATROPIUM 2.5MG/0.5MG, 3 ML ONE (06:17)
[2018-03-14] MEDS: ALBUTEROL/IPRATROPIUM 2.5MG/0.5MG, 3 ML NPPB SCH ×5 (06:18→22:30)
[2018-03-14] MEDS ORDERED: ALBUTEROL/IPRATROPIUM 2.5MG/0.5MG, 3 ML NPPB PRN (06:30)
[2018-03-14 06:50] LABS: MEAN CORPUSCULAR HEMOGLOBIN 29.5 pg (27.5-34.5); MEAN CORPUSCULAR HGB CONC 32.5 g/dL (33.2-36.2); MEAN CORPUSCULAR VOLUME 90.8 fL (81-97); MEAN PLATELET VOLUME 7.3 fL (7.4-10.4); PLATELET COUNT 562 x10^3/uL (130-400); RED BLOOD COUNT 3.32 x10^6/uL (4.38-5.82); RED CELL DISTRIBUTION WIDTH 15.4 % (9.4-14.8)
[2018-03-14] MEDS: INSULIN LISPRO 100 UNITS/ML, PEN SQ-INSULIN SCH ×4 (07:00→21:00)
[2018-03-14 07:20] LABS: BASOPHILS # (AUTO) 0.07 x10^3/uL (0-0.1); BASOPHILS % (AUTO) 0 % (0-1); EOSINOPHILS # (AUTO) 0.69 x10^3/uL (0-0.4); EOSINOPHILS % (AUTO) 3 % (1-7); LYMPHOCYTES % (AUTO) 4 % (22-44); MD SCAN; MONOCYTES # (AUTO) 1.48 x10^3/uL (0.2-0.8); MONOCYTES % (AUTO) 6 % (2-9); NEUTROPHILS # (AUTO) 21.56 x10^3/uL (1.8-6.8); NEUTROPHILS % (AUTO) 87 % (42-75)
[2018-03-14] MEDS: DOCUSATE 100 MG CAPSULE PO SCH (08:01)
[2018-03-14] MEDS: MAGNESIUM CHLORIDE 64 MG TABLET.DR PO SCH (08:01)
[2018-03-14] MEDS: MULTIVITAMIN 1 TABLET PO SCH (08:01)
[2018-03-14] MEDS: FUROSEMIDE 40 MG/4 ML IV SCH (08:01)
[2018-03-14] MEDS: CLOPIDOGREL 75 MG TABLET PO SCH (08:02)
[2018-03-14] MEDS: FLUCONAZOLE 200 MG TABLET PO SCH (08:02)
[2018-03-14] MEDS: ENOXAPARIN 40 MG/0.4 ML SQ SCH (08:02)
[2018-03-14] MEDS: OXYcodone/APAP 10/325MG TABLET PO PRN (08:02)
[2018-03-14] MEDS: SODIUM CHLORIDE FLUSH 10ML SYR IVF SCH ×2 (08:03→20:26)
[2018-03-14] MEDS ORDERED: ETOMIDATE 20 MG/10 ML IVPush ONE (09:00)
[2018-03-14] MEDS ORDERED: PHARMACOKINETIC CONSULTATION MC ONE (09:00)
[2018-03-14] MEDS ORDERED: MIDAZOLAM 1 MG/ML, 5ML IVPush ONE (09:00)
[2018-03-14] MEDS ORDERED: VANCOMYCIN PER PHARMACY MC PRN (09:00)
[2018-03-14] MEDS: METOPROLOL TARTRATE 50 MG TABLET PO SCH ×2 (09:00→20:27)
[2018-03-14] MEDS: INSULIN GLARGINE 100 UNITS/ML, PEN SQ-INSULIN SCH ×2 (09:00→21:00)
[2018-03-14] MEDS ORDERED: VANCOMYCIN 1,400 MG in SODIUM CHLORIDE 0.9% 250 ML IV SCH (09:00)
[2018-03-14] MEDS ORDERED: PHARMACOKINETIC MONITORING MC PRN (09:00)
[2018-03-14 09:09] LABS: ALANINE AMINOTRANSFERASE 25 U/L (12-78); ALBUMIN 1.6 g/dL (3.4-5.0); ANION GAP 9 mmol/L (5-15); CALCIUM 8.2 mg/dL (8.5-10.1); CHLORIDE 98 mmol/L (98-107); CREATININE 0.97 mg/dL (0.7-1.3)
[2018-03-14 09:11] LABS: ALKALINE PHOSPHATASE 103 U/L (45-117); BILIRUBIN,TOTAL 0.3 mg/dL (0.2-1.0); TOTAL PROTEIN 6.8 g/dL (6.4-8.2)
[2018-03-14] MEDS ORDERED: LIDOCAINE-MPF 1%, 2ML ENDO PRN (09:30)
[2018-03-14] MEDS ORDERED: LIDOCAINE 1%, 50ML ONE (09:45)
[2018-03-14] MEDS ORDERED: LIDOCAINE 4% TOPICAL SOLUTION 50 ML ONE (09:45)
[2018-03-14] MEDS ORDERED: LIDOCAINE GEL 2%, 5ML ONE (09:45)
[2018-03-14] MEDS ORDERED: NOREPINEPHRINE 1 MG/ML, 4ML ONE (09:46)
[2018-03-14] MEDS: CEFEPIME 2 GM in DEXTROSE 5% 100 ML IV SCH ×2 (11:30→16:29)
[2018-03-14] MEDS: FAMOTIDINE 20 MG/2 ML IV SCH ×2 (12:03→20:26)
[2018-03-14] MEDS: AZITHROMYCIN 500 MG in SODIUM CHLORIDE 0.9% 250 ML IV SCH (12:04)
[2018-03-14] MEDS: SODIUM CHLORIDE 0.9% 1,000 ML IV SCH ×2 (12:04→20:26)
[2018-03-14] MEDS ORDERED: MIDAZOLAM 1 MG/ML, 5ML ONE (14:30)
[2018-03-14] MEDS ORDERED: PROPOFOL 10 MG/ML, 100ML IV ONE (14:30)
[2018-03-14] MEDS ORDERED: PROPOFOL 10 MG/ML, 20ML ONE (14:30)
[2018-03-14] MEDS ORDERED: ETOMIDATE 20 MG/10 ML ONE (14:30)
[2018-03-14] MEDS: PROPOFOL 100 ML IV PRN ×2 (18:55→20:26)
[2018-03-14 19:16] LABS: CULTURE INDICATED? YES; MICROSCOPIC INDICATED
[2018-03-14] MEDS: ACETAMINOPHEN 325 MG TABLET PO PRN (20:27)
[2018-03-14] MEDS: ATORVASTATIN 20 MG TABLET PO SCH (20:27)
[2018-03-15] MEDS: ACETAMINOPHEN 325 MG TABLET PO PRN ×3 (00:46→21:00)
[2018-03-15] MEDS: CEFEPIME 2 GM in DEXTROSE 5% 100 ML IV SCH ×3 (00:46→17:00)
[2018-03-15] MEDS: ALBUTEROL/IPRATROPIUM 2.5MG/0.5MG, 3 ML NPPB SCH ×6 (02:30→22:30)
[2018-03-15] MEDS: PROPOFOL 100 ML IV PRN ×3 (05:31→23:34)
[2018-03-15] MEDS: SODIUM CHLORIDE 0.9% 1,000 ML IV SCH ×2 (05:31→16:29)
[2018-03-15] MEDS: GABAPENTIN 300 MG CAPSULE PO SCH ×4 (05:32→20:59)
[2018-03-15 06:11] LABS: MEAN CORPUSCULAR HEMOGLOBIN 29.4 pg (27.5-34.5); MEAN CORPUSCULAR HGB CONC 32.6 g/dL (33.2-36.2); MEAN CORPUSCULAR VOLUME 90.2 fL (81-97); MEAN PLATELET VOLUME 7.7 fL (7.4-10.4); PLATELET COUNT 465 x10^3/uL (130-400); RED BLOOD COUNT 2.92 x10^6/uL (4.38-5.82); RED CELL DISTRIBUTION WIDTH 15.4 % (9.4-14.8)
[2018-03-15 06:20] LABS: CHLORIDE 102 mmol/L (98-107)
[2018-03-15 06:27] LABS: ANION GAP 11 mmol/L (5-15); CALCIUM 7.9 mg/dL (8.5-10.1); CREATININE 0.89 mg/dL (0.7-1.3)
[2018-03-15 06:35] LABS: BASOPHILS # (AUTO) 0.04 x10^3/uL (0-0.1); BASOPHILS % (AUTO) 0 % (0-1); EOSINOPHILS % (AUTO) 2 % (1-7); LYMPHOCYTES # (AUTO) 0.54 x10^3/uL (1-3.4); LYMPHOCYTES % (AUTO) 3 % (22-44); MD SCAN; MONOCYTES # (AUTO) 1.19 x10^3/uL (0.2-0.8); MONOCYTES % (AUTO) 6 % (2-9); NEUTROPHILS # (AUTO) 19.23 x10^3/uL (1.8-6.8); NEUTROPHILS % (AUTO) 90 % (42-75)
[2018-03-15] MEDS: INSULIN LISPRO 100 UNITS/ML, PEN SQ-INSULIN SCH ×2 (07:00→17:06)
[2018-03-15] MEDS ORDERED: MAGNESIUM SULFATE PMX 4GM/100M 100 ML IV ONE (07:30)
[2018-03-15] MEDS: MAGNESIUM CHLORIDE 64 MG TABLET.DR PO SCH (09:00)
[2018-03-15] MEDS: METOPROLOL TARTRATE 50 MG TABLET PO SCH ×2 (09:00→21:00)
[2018-03-15] MEDS: DOCUSATE 100 MG CAPSULE PO SCH (09:00)
[2018-03-15] MEDS: FAMOTIDINE 20 MG/2 ML IV SCH ×2 (09:17→20:59)
[2018-03-15] MEDS: SODIUM CHLORIDE FLUSH 10ML SYR IVF SCH ×2 (09:17→20:59)
[2018-03-15] MEDS: ENOXAPARIN 40 MG/0.4 ML SQ SCH (09:18)
[2018-03-15] MEDS: FLUCONAZOLE 200 MG TABLET PO SCH (09:18)
[2018-03-15] MEDS: CLOPIDOGREL 75 MG TABLET PO SCH (09:18)
[2018-03-15] MEDS: INSULIN GLARGINE 100 UNITS/ML, PEN SQ-INSULIN SCH ×2 (09:55→21:07)
[2018-03-15] MEDS: MULTIVITAMIN 1 TABLET PO SCH (11:34)
[2018-03-15] MEDS: AZITHROMYCIN 500 MG in SODIUM CHLORIDE 0.9% 250 ML IV SCH (11:35)
[2018-03-15] MEDS ORDERED: VANCOMYCIN 1,400 MG in SODIUM CHLORIDE 0.9% 250 ML IV SCH (13:00)
[2018-03-15] MEDS: ATORVASTATIN 20 MG TABLET PO SCH (20:59)
[2018-03-16] MEDS: CEFEPIME 2 GM in DEXTROSE 5% 100 ML IV SCH ×3 (01:11→17:05)
[2018-03-16] MEDS: ALBUTEROL/IPRATROPIUM 2.5MG/0.5MG, 3 ML NPPB SCH ×6 (02:30→21:17)
[2018-03-16] MEDS: SODIUM CHLORIDE 0.9% 1,000 ML IV SCH (03:41)
[2018-03-16] MEDS: PROPOFOL 100 ML IV PRN ×4 (04:23→21:15)
[2018-03-16 04:44] LABS: MEAN CORPUSCULAR HEMOGLOBIN 30.5 pg (27.5-34.5); MEAN CORPUSCULAR HGB CONC 33.6 g/dL (33.2-36.2); MEAN CORPUSCULAR VOLUME 90.6 fL (81-97); MEAN PLATELET VOLUME 7.3 fL (7.4-10.4); PLATELET COUNT 429 x10^3/uL (130-400); RED BLOOD COUNT 2.82 x10^6/uL (4.38-5.82); RED CELL DISTRIBUTION WIDTH 16.1 % (9.4-14.8)
[2018-03-16 04:55] LABS: CHLORIDE 105 mmol/L (98-107)
[2018-03-16 05:02] LABS: ALANINE AMINOTRANSFERASE 20 U/L (12-78); ALBUMIN 1.1 g/dL (3.4-5.0); ALKALINE PHOSPHATASE 87 U/L (45-117); ANION GAP 7 mmol/L (5-15); BILIRUBIN,TOTAL 0.5 mg/dL (0.2-1.0); CALCIUM 7.4 mg/dL (8.5-10.1); CREATININE 0.78 mg/dL (0.7-1.3); TOTAL PROTEIN 5.6 g/dL (6.4-8.2)
[2018-03-16 05:23] LABS: BASOPHILS # (AUTO) 0.09 x10^3/uL (0-0.1); BASOPHILS % (AUTO) 0 % (0-1); EOSINOPHILS % (AUTO) 1 % (1-7); LYMPHOCYTES # (AUTO) 0.63 x10^3/uL (1-3.4); LYMPHOCYTES % (AUTO) 3 % (22-44); MD SCAN; MONOCYTES % (AUTO) 6 % (2-9); NEUTROPHILS # (AUTO) 21.47 x10^3/uL (1.8-6.8); NEUTROPHILS % (AUTO) 91 % (42-75)
[2018-03-16] MEDS: INSULIN LISPRO 100 UNITS/ML, PEN SQ-INSULIN SCH ×4 (06:00→17:59)
[2018-03-16] MEDS: GABAPENTIN 300 MG CAPSULE PO SCH ×4 (06:25→21:07)
[2018-03-16] MEDS: FLUCONAZOLE 200 MG TABLET PO SCH (08:41)
[2018-03-16] MEDS: FAMOTIDINE 20 MG/2 ML IV SCH ×2 (08:41→21:06)
[2018-03-16] MEDS: CLOPIDOGREL 75 MG TABLET PO SCH (08:41)
[2018-03-16] MEDS: MULTIVITAMIN 1 TABLET PO SCH (08:41)
[2018-03-16] MEDS: METOPROLOL TARTRATE 50 MG TABLET PO SCH ×2 (08:41→21:28)
[2018-03-16] MEDS: ENOXAPARIN 40 MG/0.4 ML SQ SCH (08:42)
[2018-03-16] MEDS ORDERED: FUROSEMIDE 40 MG/4 ML IV SCH (09:00)
[2018-03-16] MEDS: INSULIN GLARGINE 100 UNITS/ML, PEN SQ-INSULIN SCH ×2 (09:00→21:12)
[2018-03-16] MEDS: DOCUSATE 100 MG CAPSULE PO SCH (09:00)
[2018-03-16] MEDS: MAGNESIUM CHLORIDE 64 MG TABLET.DR PO SCH (09:00)
[2018-03-16] MEDS ORDERED: SODIUM CHLORIDE 0.9% 1,000 ML IV SCH (10:00)
[2018-03-16] MEDS: SODIUM CHLORIDE FLUSH 10ML SYR IVF SCH ×2 (10:16→21:07)
[2018-03-16] MEDS: AZITHROMYCIN 500 MG in SODIUM CHLORIDE 0.9% 250 ML IV SCH (14:11)
[2018-03-16] MEDS: OXYcodone/APAP 10/325MG TABLET PO PRN (15:05)
[2018-03-16] MEDS: QUETIAPINE 25MG TABLET PO SCH ×2 (15:05→21:07)
[2018-03-16] MEDS: MIDAZOLAM HCL 25 MG in SODIUM CHLORIDE 0.9% 245 ML IV PRN (19:33)
[2018-03-16] MEDS: ATORVASTATIN 20 MG TABLET PO SCH (21:07)
[2018-03-17] MEDS: INSULIN LISPRO 100 UNITS/ML, PEN SQ-INSULIN SCH ×4 (00:38→18:24)
[2018-03-17] MEDS: PROPOFOL 100 ML IV PRN ×5 (00:50→20:47)
[2018-03-17] MEDS: CEFEPIME 2 GM in DEXTROSE 5% 100 ML IV SCH ×2 (01:07→09:00)
[2018-03-17] MEDS: ALBUTEROL/IPRATROPIUM 2.5MG/0.5MG, 3 ML NPPB SCH ×6 (02:30→22:45)
[2018-03-17] MEDS: NOREPINEPHRINE 4 MG in SODIUM CHLORIDE 0.9% 246 ML IV PRN ×2 (02:40→11:52)
[2018-03-17 04:57] LABS: ANION GAP 6 mmol/L (5-15); CHLORIDE 104 mmol/L (98-107)
[2018-03-17 05:00] LABS: CREATININE 0.83 mg/dL (0.7-1.3); TRIGLYCERIDES 177 mg/dL (50-200)
[2018-03-17 05:09] LABS: MEAN CORPUSCULAR HEMOGLOBIN 28.8 pg (27.5-34.5); MEAN CORPUSCULAR HGB CONC 32.1 g/dL (33.2-36.2); MEAN CORPUSCULAR VOLUME 89.8 fL (81-97); MEAN PLATELET VOLUME 7.4 fL (7.4-10.4); PLATELET COUNT 523 x10^3/uL (130-400); RED BLOOD COUNT 2.95 x10^6/uL (4.38-5.82); RED CELL DISTRIBUTION WIDTH 15.8 % (9.4-14.8)
[2018-03-17 05:40] LABS: MD YES
[2018-03-17 05:41] LABS: EOS#(MANUAL) 1.25 x10^3/uL (0.0-0.4); EOS% (MANUAL) 4 % (1-7); LYMPH#(MANUAL) 0.31 x10^3/uL (1-3.4); LYMPHS% (MANUAL) 1 % (22-44); MONOS#(MANUAL) 1.25 x10^3/uL (0.3-2.7); MONOS% (MANUAL) 4 % (2-9); SEG#(MANUAL) 28.48 x10^3/uL (1.8-6.8); SEGS% (MANUAL) 91 % (42-75)
[2018-03-17 05:42] LABS: POLYCHROMASIA 1+
[2018-03-17 05:43] LABS: <PLATELET ESTIMATE> INCREASED; <PLT MORPHOLOGY> NORMAL PLT MORPH
[2018-03-17] MEDS: GABAPENTIN 300 MG CAPSULE PO SCH ×4 (06:01→21:25)
[2018-03-17] MEDS: MIDAZOLAM HCL 25 MG in SODIUM CHLORIDE 0.9% 245 ML IV PRN ×3 (06:09→23:01)
[2018-03-17] MEDS: ENOXAPARIN 40 MG/0.4 ML SQ SCH (08:59)
[2018-03-17] MEDS: CLOPIDOGREL 75 MG TABLET PO SCH (08:59)
[2018-03-17] MEDS: FUROSEMIDE 40 MG/4 ML IV SCH ×2 (08:59→21:24)
[2018-03-17] MEDS: FAMOTIDINE 20 MG/2 ML IV SCH ×2 (08:59→21:24)
[2018-03-17] MEDS: QUETIAPINE 25MG TABLET PO SCH ×3 (08:59→21:31)
[2018-03-17] MEDS: MULTIVITAMIN 1 TABLET PO SCH (08:59)
[2018-03-17] MEDS: METOPROLOL TARTRATE 50 MG TABLET PO SCH ×2 (09:00→21:00)
[2018-03-17] MEDS: MAGNESIUM CHLORIDE 64 MG TABLET.DR PO SCH (09:00)
[2018-03-17] MEDS: DOCUSATE 100 MG CAPSULE PO SCH (09:00)
[2018-03-17] MEDS: INSULIN GLARGINE 100 UNITS/ML, PEN SQ-INSULIN SCH ×2 (09:02→21:37)
[2018-03-17] MEDS: SODIUM CHLORIDE FLUSH 10ML SYR IVF SCH ×2 (09:03→21:25)
[2018-03-17] MEDS: ATORVASTATIN 20 MG TABLET PO SCH (21:25)
[2018-03-18] MEDS: INSULIN LISPRO 100 UNITS/ML, PEN SQ-INSULIN SCH ×4 (00:16→18:26)
[2018-03-18] MEDS: PROPOFOL 100 ML IV PRN ×5 (00:32→20:35)
[2018-03-18] MEDS: NOREPINEPHRINE 4 MG in SODIUM CHLORIDE 0.9% 246 ML IV PRN ×2 (02:05→09:49)
[2018-03-18] MEDS: ALBUTEROL/IPRATROPIUM 2.5MG/0.5MG, 3 ML NPPB SCH ×6 (02:31→22:19)
[2018-03-18 05:01] LABS: ANION GAP 7 mmol/L (5-15); CALCIUM 7.9 mg/dL (8.5-10.1); CHLORIDE 103 mmol/L (98-107); CREATININE 1.37 mg/dL (0.7-1.3)
[2018-03-18 05:06] LABS: MEAN CORPUSCULAR HEMOGLOBIN 28.3 pg (27.5-34.5); MEAN CORPUSCULAR HGB CONC 31.5 g/dL (33.2-36.2); MEAN CORPUSCULAR VOLUME 89.9 fL (81-97); MEAN PLATELET VOLUME 7.4 fL (7.4-10.4); PLATELET COUNT 541 x10^3/uL (130-400); RED BLOOD COUNT 2.84 x10^6/uL (4.38-5.82); RED CELL DISTRIBUTION WIDTH 16.1 % (9.4-14.8)
[2018-03-18] MEDS: GABAPENTIN 300 MG CAPSULE PO SCH ×4 (05:41→21:17)
[2018-03-18 05:58] LABS: BASOPHILS # (AUTO) 0.01 x10^3/uL (0-0.1); BASOPHILS % (AUTO) 0 % (0-1); EOSINOPHILS # (AUTO) 1.25 x10^3/uL (0-0.4); EOSINOPHILS % (AUTO) 5 % (1-7); LYMPHOCYTES # (AUTO) 0.74 x10^3/uL (1-3.4); LYMPHOCYTES % (AUTO) 3 % (22-44); MD SCAN; MONOCYTES # (AUTO) 1.72 x10^3/uL (0.2-0.8); MONOCYTES % (AUTO) 7 % (2-9); NEUTROPHILS # (AUTO) 21.19 x10^3/uL (1.8-6.8); NEUTROPHILS % (AUTO) 85 % (42-75)
[2018-03-18] MEDS: MIDAZOLAM HCL 25 MG in SODIUM CHLORIDE 0.9% 245 ML IV PRN ×2 (09:48→17:49)
[2018-03-18] MEDS: SODIUM CHLORIDE FLUSH 10ML SYR IVF SCH ×2 (10:03→21:17)
[2018-03-18] MEDS: FAMOTIDINE 20 MG/2 ML IV SCH ×2 (10:03→21:16)
[2018-03-18] MEDS: QUETIAPINE 25MG TABLET PO SCH ×3 (10:03→21:17)
[2018-03-18] MEDS: MULTIVITAMIN 1 TABLET PO SCH (10:03)
[2018-03-18] MEDS: FUROSEMIDE 40 MG/4 ML IV SCH ×2 (10:03→21:00)
[2018-03-18] MEDS: CLOPIDOGREL 75 MG TABLET PO SCH (10:04)
[2018-03-18] MEDS: METOPROLOL TARTRATE 50 MG TABLET PO SCH ×2 (10:04→21:00)
[2018-03-18] MEDS: DOCUSATE 100 MG CAPSULE PO SCH (10:04)
[2018-03-18] MEDS: MAGNESIUM CHLORIDE 64 MG TABLET.DR PO SCH (10:04)
[2018-03-18] MEDS: METOLAZONE 5 MG TABLET PO SCH ×2 (10:04→21:00)
[2018-03-18] MEDS: ENOXAPARIN 40 MG/0.4 ML SQ SCH (10:05)
[2018-03-18] MEDS: INSULIN GLARGINE 100 UNITS/ML, PEN SQ-INSULIN SCH ×2 (10:06→21:28)
[2018-03-18] MEDS: ATORVASTATIN 20 MG TABLET PO SCH (21:17)
[2018-03-19] MEDS: INSULIN LISPRO 100 UNITS/ML, PEN SQ-INSULIN SCH ×4 (00:29→17:33)
[2018-03-19] MEDS: MIDAZOLAM HCL 25 MG in SODIUM CHLORIDE 0.9% 245 ML IV PRN ×3 (02:27→19:33)
[2018-03-19] MEDS: PROPOFOL 100 ML IV PRN ×4 (02:42→19:07)
[2018-03-19] MEDS: ALBUTEROL/IPRATROPIUM 2.5MG/0.5MG, 3 ML NPPB SCH ×6 (03:01→22:00)
[2018-03-19 04:41] LABS: MEAN CORPUSCULAR HEMOGLOBIN 29.4 pg (27.5-34.5); MEAN CORPUSCULAR HGB CONC 32.5 g/dL (33.2-36.2); MEAN CORPUSCULAR VOLUME 90.5 fL (81-97); MEAN PLATELET VOLUME 7.4 fL (7.4-10.4); PLATELET COUNT 574 x10^3/uL (130-400); RED BLOOD COUNT 2.78 x10^6/uL (4.38-5.82); RED CELL DISTRIBUTION WIDTH 16.3 % (9.4-14.8)
[2018-03-19 04:51] LABS: ANION GAP 7 mmol/L (5-15); CALCIUM 7.8 mg/dL (8.5-10.1); CHLORIDE 101 mmol/L (98-107); CREATININE 2.05 mg/dL (0.7-1.3)
[2018-03-19 05:33] LABS: MD YES
[2018-03-19 05:35] LABS: BAND#(MANUAL) 0.22 x10^3/uL; BANDS%(MANUAL) 1 % (0-7); LYMPH#(MANUAL) 0.89 x10^3/uL (1-3.4); LYMPHS% (MANUAL) 4 % (22-44); METAMYELOCYTES# (MANUAL) 0.22 x10^3/uL (0-0); METAMYELOCYTES% (MANUAL) 1 % (0-1); MONOS#(MANUAL) 1.12 x10^3/uL (0.3-2.7); MONOS% (MANUAL) 5 % (2-9); MYELOCYTES# (MANUAL) 0.22 x10^3/uL (0-0); MYELOCYTES% (MANUAL) 1 % (0-0); SEG#(MANUAL) 19.62 x10^3/uL (1.8-6.8); SEGS% (MANUAL) 88 % (42-75)
[2018-03-19 05:36] LABS: <PLATELET ESTIMATE> INCREASED; <PLT MORPHOLOGY> NORMAL PLT MORPH; ANISOCYTOSIS 1+
[2018-03-19] MEDS: GABAPENTIN 300 MG CAPSULE PO SCH ×4 (06:16→21:02)
[2018-03-19] MEDS: MAGNESIUM CHLORIDE 64 MG TABLET.DR PO SCH (08:45)
[2018-03-19] MEDS: QUETIAPINE 25MG TABLET PO SCH ×3 (08:45→21:02)
[2018-03-19] MEDS: FAMOTIDINE 20 MG/2 ML IV SCH ×2 (08:45→21:02)
[2018-03-19] MEDS: CLOPIDOGREL 75 MG TABLET PO SCH (08:45)
[2018-03-19] MEDS: DOCUSATE 100 MG CAPSULE PO SCH (08:45)
[2018-03-19] MEDS: MULTIVITAMIN 1 TABLET PO SCH (08:45)
[2018-03-19] MEDS: ENOXAPARIN 40 MG/0.4 ML SQ SCH (08:46)
[2018-03-19] MEDS: METOPROLOL TARTRATE 50 MG TABLET PO SCH ×2 (08:46→21:02)
[2018-03-19] MEDS: SODIUM CHLORIDE FLUSH 10ML SYR IVF SCH ×2 (08:46→21:02)
[2018-03-19] MEDS: INSULIN GLARGINE 100 UNITS/ML, PEN SQ-INSULIN SCH ×2 (08:49→21:38)
[2018-03-19] MEDS: METOLAZONE 5 MG TABLET PO SCH (09:00)
[2018-03-19] MEDS: FUROSEMIDE 40 MG/4 ML IV SCH (09:00)
[2018-03-19] MEDS: ATORVASTATIN 20 MG TABLET PO SCH (21:02)
[2018-03-20] MEDS: INSULIN LISPRO 100 UNITS/ML, PEN SQ-INSULIN SCH ×4 (00:06→17:51)
[2018-03-20] MEDS: PROPOFOL 100 ML IV PRN (00:35)
[2018-03-20] MEDS: ALBUTEROL/IPRATROPIUM 2.5MG/0.5MG, 3 ML NPPB SCH ×6 (02:00→22:41)
[2018-03-20 05:57] LABS: MEAN CORPUSCULAR HEMOGLOBIN 28.7 pg (27.5-34.5); MEAN CORPUSCULAR HGB CONC 32.4 g/dL (33.2-36.2); MEAN CORPUSCULAR VOLUME 88.7 fL (81-97); MEAN PLATELET VOLUME 7.2 fL (7.4-10.4); PLATELET COUNT 641 x10^3/uL (130-400); RED BLOOD COUNT 2.85 x10^6/uL (4.38-5.82); RED CELL DISTRIBUTION WIDTH 16.5 % (9.4-14.8)
[2018-03-20] MEDS: GABAPENTIN 300 MG CAPSULE PO SCH ×2 (06:00→09:07)
[2018-03-20 06:07] LABS: ANION GAP 8 mmol/L (5-15); CALCIUM 8.4 mg/dL (8.5-10.1); CHLORIDE 101 mmol/L (98-107); CREATININE 2.69 mg/dL (0.7-1.3); TRIGLYCERIDES 220 mg/dL (50-200)
[2018-03-20 06:22] LABS: BASOPHILS % (AUTO) 0 % (0-1); EOSINOPHILS # (AUTO) 0.31 x10^3/uL (0-0.4); EOSINOPHILS % (AUTO) 2 % (1-7); LYMPHOCYTES # (AUTO) 0.46 x10^3/uL (1-3.4); LYMPHOCYTES % (AUTO) 2 % (22-44); MD SCAN; MONOCYTES # (AUTO) 1.53 x10^3/uL (0.2-0.8); MONOCYTES % (AUTO) 8 % (2-9); NEUTROPHILS % (AUTO) 88 % (42-75)
[2018-03-20] MEDS ORDERED: METOCLOPRAMIDE 5 MG/ML, 2ML IVPush PRN (09:00)
[2018-03-20] MEDS: QUETIAPINE 25MG TABLET PO SCH (09:07)
[2018-03-20] MEDS: MAGNESIUM CHLORIDE 64 MG TABLET.DR PO SCH (09:07)
[2018-03-20] MEDS: MULTIVITAMIN 1 TABLET PO SCH (09:07)
[2018-03-20] MEDS: FAMOTIDINE 20 MG/2 ML IV SCH (09:07)
[2018-03-20] MEDS: DOCUSATE 100 MG CAPSULE PO SCH (09:07)
[2018-03-20] MEDS: CLOPIDOGREL 75 MG TABLET PO SCH (09:07)
[2018-03-20] MEDS: METOPROLOL TARTRATE 50 MG TABLET PO SCH ×2 (09:08→20:32)
[2018-03-20] MEDS: ENOXAPARIN 30 MG/0.3 ML SQ SCH (09:08)
[2018-03-20] MEDS: INSULIN GLARGINE 100 UNITS/ML, PEN SQ-INSULIN SCH ×2 (09:26→20:34)
[2018-03-20] MEDS: SODIUM CHLORIDE FLUSH 10ML SYR IVF SCH ×2 (09:26→20:22)
[2018-03-20 11:06] LABS: HCT (SEDRATE) 25.2 % (39.2-51.8)
[2018-03-20] MEDS: SODIUM CHLORIDE 0.9% 1,000 ML IV SCH ×2 (11:54→20:22)
[2018-03-20 12:06] LABS: MICROSCOPIC INDICATED
[2018-03-20] MEDS: methylPREDNISolone SOD SUCC 125 MG/2 ML IVPush SCH ×2 (12:06→18:00)
[2018-03-20 12:35] LABS: CULTURE INDICATED? NO
[2018-03-20] MEDS: ATORVASTATIN 20 MG TABLET PO SCH (20:31)
[2018-03-21] MEDS: methylPREDNISolone SOD SUCC 125 MG/2 ML IVPush SCH ×5 (00:04→23:43)
[2018-03-21] MEDS: ALBUTEROL/IPRATROPIUM 2.5MG/0.5MG, 3 ML NPPB SCH ×6 (02:32→22:54)
[2018-03-21] MEDS: INSULIN LISPRO 100 UNITS/ML, PEN SQ-INSULIN SCH ×4 (03:39→21:16)
[2018-03-21 04:19] LABS: MEAN CORPUSCULAR HEMOGLOBIN 28.2 pg (27.5-34.5); MEAN CORPUSCULAR HGB CONC 31.9 g/dL (33.2-36.2); MEAN CORPUSCULAR VOLUME 88.5 fL (81-97); MEAN PLATELET VOLUME 7.4 fL (7.4-10.4); PLATELET COUNT 814 x10^3/uL (130-400); RED BLOOD COUNT 2.96 x10^6/uL (4.38-5.82); RED CELL DISTRIBUTION WIDTH 16.7 % (9.4-14.8)
[2018-03-21 04:23] LABS: ANION GAP 11 mmol/L (5-15); CALCIUM 8.6 mg/dL (8.5-10.1); CHLORIDE 103 mmol/L (98-107); CREATININE 2.73 mg/dL (0.7-1.3)
[2018-03-21 04:37] LABS: BASOPHILS % (AUTO) 0 % (0-1); EOSINOPHILS % (AUTO) 0 % (1-7); LYMPHOCYTES # (AUTO) 0.45 x10^3/uL (1-3.4); LYMPHOCYTES % (AUTO) 2 % (22-44); MD SCAN; MONOCYTES # (AUTO) 0.31 x10^3/uL (0.2-0.8); MONOCYTES % (AUTO) 2 % (2-9); NEUTROPHILS # (AUTO) 18.72 x10^3/uL (1.8-6.8); NEUTROPHILS % (AUTO) 96 % (42-75)
[2018-03-21] MEDS: SODIUM CHLORIDE 0.9% 1,000 ML IV SCH ×2 (05:31→16:19)
[2018-03-21] MEDS: MAGNESIUM CHLORIDE 64 MG TABLET.DR PO SCH (09:51)
[2018-03-21] MEDS: SODIUM CHLORIDE FLUSH 10ML SYR IVF SCH ×2 (09:51→21:12)
[2018-03-21] MEDS: DOCUSATE 50 MG/5 ML, 10ML UDC NG SCH (09:51)
[2018-03-21] MEDS: FAMOTIDINE 20 MG/2 ML IV SCH (09:51)
[2018-03-21] MEDS: CLOPIDOGREL 75 MG TABLET PO SCH (09:51)
[2018-03-21] MEDS: METOPROLOL TARTRATE 50 MG TABLET PO SCH ×2 (09:52→21:12)
[2018-03-21] MEDS: ENOXAPARIN 30 MG/0.3 ML SQ SCH (09:52)
[2018-03-21] MEDS: MULTIVITAMIN LIQUID NG SCH (09:54)
[2018-03-21] MEDS: INSULIN GLARGINE 100 UNITS/ML, PEN SQ-INSULIN SCH ×2 (10:59→21:16)
[2018-03-21] MEDS: ATORVASTATIN 20 MG TABLET PO SCH (21:12)
[2018-03-22] MEDS: SODIUM CHLORIDE 0.9% 1,000 ML IV SCH ×3 (01:52→21:57)
[2018-03-22] MEDS: ALBUTEROL/IPRATROPIUM 2.5MG/0.5MG, 3 ML NPPB SCH ×6 (02:49→21:44)
[2018-03-22] MEDS: INSULIN LISPRO 100 UNITS/ML, PEN SQ-INSULIN SCH ×4 (03:28→21:27)
[2018-03-22 04:23] LABS: MEAN CORPUSCULAR HGB CONC 32.9 g/dL (33.2-36.2); MEAN CORPUSCULAR VOLUME 88.3 fL (81-97); MEAN PLATELET VOLUME 7.2 fL (7.4-10.4); PLATELET COUNT 777 x10^3/uL (130-400); RED BLOOD COUNT 2.81 x10^6/uL (4.38-5.82); RED CELL DISTRIBUTION WIDTH 16.6 % (9.4-14.8)
[2018-03-22 04:31] LABS: ANION GAP 10 mmol/L (5-15); CALCIUM 8.1 mg/dL (8.5-10.1); CHLORIDE 108 mmol/L (98-107); CREATININE 2.36 mg/dL (0.7-1.3)
[2018-03-22 04:47] LABS: BASOPHILS # (AUTO) 0.02 x10^3/uL (0-0.1); BASOPHILS % (AUTO) 0 % (0-1); EOSINOPHILS # (AUTO) 0.01 x10^3/uL (0-0.4); EOSINOPHILS % (AUTO) 0 % (1-7); LYMPHOCYTES # (AUTO) 0.57 x10^3/uL (1-3.4); LYMPHOCYTES % (AUTO) 3 % (22-44); MD SCAN; MONOCYTES # (AUTO) 0.54 x10^3/uL (0.2-0.8); MONOCYTES % (AUTO) 2 % (2-9); NEUTROPHILS # (AUTO) 21.38 x10^3/uL (1.8-6.8); NEUTROPHILS % (AUTO) 95 % (42-75)
[2018-03-22] MEDS: methylPREDNISolone SOD SUCC 125 MG/2 ML IVPush SCH ×4 (05:57→23:56)
[2018-03-22] MEDS: DOCUSATE 50 MG/5 ML, 10ML UDC NG SCH (09:00)
[2018-03-22] MEDS: CLOPIDOGREL 75 MG TABLET PO SCH (10:00)
[2018-03-22] MEDS: FAMOTIDINE 20 MG/2 ML IV SCH (10:00)
[2018-03-22] MEDS: MAGNESIUM CHLORIDE 64 MG TABLET.DR PO SCH (10:00)
[2018-03-22] MEDS: METOPROLOL TARTRATE 50 MG TABLET PO SCH ×2 (10:00→21:56)
[2018-03-22] MEDS: SODIUM CHLORIDE FLUSH 10ML SYR IVF SCH ×2 (10:01→21:56)
[2018-03-22] MEDS: MULTIVITAMIN LIQUID NG SCH (10:02)
[2018-03-22] MEDS: ENOXAPARIN 30 MG/0.3 ML SQ SCH (10:10)
[2018-03-22] MEDS: INSULIN GLARGINE 100 UNITS/ML, PEN SQ-INSULIN SCH ×2 (10:27→21:28)
[2018-03-22] MEDS: ATORVASTATIN 20 MG TABLET PO SCH (21:56)
[2018-03-23] MEDS: ALBUTEROL/IPRATROPIUM 2.5MG/0.5MG, 3 ML NPPB SCH ×6 (02:30→22:00)
[2018-03-23] MEDS: INSULIN LISPRO 100 UNITS/ML, PEN SQ-INSULIN SCH ×4 (03:16→20:33)
[2018-03-23 05:44] LABS: ANION GAP 9 mmol/L (5-15); CALCIUM 7.9 mg/dL (8.5-10.1); CHLORIDE 110 mmol/L (98-107); CREATININE 1.88 mg/dL (0.7-1.3); MEAN CORPUSCULAR HEMOGLOBIN 28.4 pg (27.5-34.5); MEAN CORPUSCULAR HGB CONC 32.3 g/dL (33.2-36.2); MEAN CORPUSCULAR VOLUME 87.7 fL (81-97); RED BLOOD COUNT 2.85 x10^6/uL (4.38-5.82); RED CELL DISTRIBUTION WIDTH 16.8 % (9.4-14.8); TRIGLYCERIDES 76 mg/dL (50-200)
[2018-03-23 05:58] LABS: MEAN PLATELET VOLUME 7.3 fL (7.4-10.4)
[2018-03-23 06:00] LABS: PLATELET COUNT 1017 x10^3/uL (130-400)
[2018-03-23 06:15] LABS: BASOPHILS % (AUTO) 0 % (0-1); EOSINOPHILS # (AUTO) 0.01 x10^3/uL (0-0.4); EOSINOPHILS % (AUTO) 0 % (1-7); LYMPHOCYTES # (AUTO) 0.23 x10^3/uL (1-3.4); LYMPHOCYTES % (AUTO) 1 % (22-44); MD SCAN; MONOCYTES # (AUTO) 0.99 x10^3/uL (0.2-0.8); MONOCYTES % (AUTO) 4 % (2-9); NEUTROPHILS % (AUTO) 95 % (42-75)
[2018-03-23] MEDS: methylPREDNISolone SOD SUCC 125 MG/2 ML IVPush SCH ×3 (06:19→18:39)
[2018-03-23] MEDS: CLOPIDOGREL 75 MG TABLET PO SCH (09:25)
[2018-03-23] MEDS: SODIUM CHLORIDE 0.9% 1,000 ML IV SCH ×2 (09:25→17:50)
[2018-03-23] MEDS: ENOXAPARIN 40 MG/0.4 ML SQ SCH (09:25)
[2018-03-23] MEDS: MAGNESIUM CHLORIDE 64 MG TABLET.DR PO SCH (09:25)
[2018-03-23] MEDS: METOPROLOL TARTRATE 50 MG TABLET PO SCH ×2 (09:25→20:34)
[2018-03-23] MEDS: FAMOTIDINE 20 MG/2 ML IV SCH (09:25)
[2018-03-23] MEDS: POTASSIUM CHLORIDE 10% 40 MEQ/30 ML UDC PO SCH ×2 (09:25→20:34)
[2018-03-23] MEDS: MULTIVITAMIN LIQUID NG SCH (09:26)
[2018-03-23] MEDS: DOCUSATE 50 MG/5 ML, 10ML UDC NG SCH (09:26)
[2018-03-23] MEDS: SODIUM CHLORIDE FLUSH 10ML SYR IVF SCH ×2 (09:26→20:34)
[2018-03-23] MEDS: INSULIN GLARGINE 100 UNITS/ML, PEN SQ-INSULIN SCH ×2 (09:29→20:34)
[2018-03-23] MEDS: ATORVASTATIN 20 MG TABLET PO SCH (20:34)
[2018-03-24] MEDS: methylPREDNISolone SOD SUCC 125 MG/2 ML IVPush SCH ×5 (00:07→23:54)
[2018-03-24] MEDS: ALBUTEROL/IPRATROPIUM 2.5MG/0.5MG, 3 ML NPPB SCH ×6 (02:00→21:33)
[2018-03-24] MEDS: INSULIN LISPRO 100 UNITS/ML, PEN SQ-INSULIN SCH ×4 (03:40→20:59)
[2018-03-24] MEDS: SODIUM CHLORIDE 0.9% 1,000 ML IV SCH (04:15)
[2018-03-24 04:17] LABS: FIO2 50 %
[2018-03-24 04:48] LABS: MEAN CORPUSCULAR HEMOGLOBIN 28.5 pg (27.5-34.5); MEAN CORPUSCULAR HGB CONC 31.8 g/dL (33.2-36.2); MEAN CORPUSCULAR VOLUME 89.7 fL (81-97); PLATELET COUNT 860 x10^3/uL (130-400); RED BLOOD COUNT 2.52 x10^6/uL (4.38-5.82); RED CELL DISTRIBUTION WIDTH 17.4 % (9.4-14.8)
[2018-03-24 05:21] LABS: ANION GAP 10 mmol/L (5-15); CALCIUM 6.8 mg/dL (8.5-10.1); CHLORIDE 119 mmol/L (98-107)
[2018-03-24 05:42] LABS: BASOPHILS % (AUTO) 0 % (0-1); EOSINOPHILS % (AUTO) 0 % (1-7); LYMPHOCYTES # (AUTO) 0.18 x10^3/uL (1-3.4); LYMPHOCYTES % (AUTO) 1 % (22-44); MD SCAN; MONOCYTES # (AUTO) 0.56 x10^3/uL (0.2-0.8); MONOCYTES % (AUTO) 2 % (2-9); NEUTROPHILS # (AUTO) 22.62 x10^3/uL (1.8-6.8); NEUTROPHILS % (AUTO) 97 % (42-75)
[2018-03-24] MEDS ORDERED: MAGNESIUM SULFATE PMX 2GM/50ML 50 ML IV ONE (08:30)
[2018-03-24] MEDS ORDERED: hydrALAzine 20 MG/ML, 1ML IV PRN (08:30)
[2018-03-24] MEDS ORDERED: FENTANYL PF 100 MCG/2ML ONE (08:32)
[2018-03-24] MEDS: MAGNESIUM CHLORIDE 64 MG TABLET.DR PO SCH (08:38)
[2018-03-24] MEDS: DOCUSATE 50 MG/5 ML, 10ML UDC NG SCH (08:38)
[2018-03-24] MEDS: CLOPIDOGREL 75 MG TABLET PO SCH (08:38)
[2018-03-24] MEDS: FAMOTIDINE 20 MG/2 ML IV SCH (08:38)
[2018-03-24] MEDS: METOPROLOL TARTRATE 50 MG TABLET PO SCH ×2 (08:38→20:50)
[2018-03-24] MEDS: SODIUM CHLORIDE FLUSH 10ML SYR IVF SCH ×2 (08:38→20:50)
[2018-03-24] MEDS: ENOXAPARIN 40 MG/0.4 ML SQ SCH (08:39)
[2018-03-24] MEDS: FENTANYL PF 100 MCG/2ML IVPush PRN (08:39)
[2018-03-24] MEDS: MULTIVITAMIN LIQUID NG SCH (08:40)
[2018-03-24] MEDS: INSULIN GLARGINE 100 UNITS/ML, PEN SQ-INSULIN SCH ×2 (08:42→20:59)
[2018-03-24] MEDS ORDERED: MIDAZOLAM 1 MG/ML, 5ML ONE (11:30)
[2018-03-24] MEDS ORDERED: PROPOFOL 10 MG/ML, 100ML IV ONE (11:30)
[2018-03-24] MEDS ORDERED: VECURONIUM 10 MG ONE (11:30)
[2018-03-24] MEDS ORDERED: POTASSIUM PHOSPHATE 44 MEQ in SODIUM CHLORIDE 0.9% 500 ML IV ONE (11:30)
[2018-03-24 12:09] LABS: BASOPHILS % (AUTO) 0 % (0-1); EOSINOPHILS % (AUTO) 0 % (1-7); LYMPHOCYTES # (AUTO) 0.33 x10^3/uL (1-3.4); LYMPHOCYTES % (AUTO) 1 % (22-44); MD SCAN; MEAN CORPUSCULAR HEMOGLOBIN 28.2 pg (27.5-34.5); MEAN CORPUSCULAR HGB CONC 31.9 g/dL (33.2-36.2); MEAN CORPUSCULAR VOLUME 88.3 fL (81-97); MEAN PLATELET VOLUME 7.1 fL (7.4-10.4); MONOCYTES # (AUTO) 1.65 x10^3/uL (0.2-0.8); MONOCYTES % (AUTO) 5 % (2-9); NEUTROPHILS # (AUTO) 30.87 x10^3/uL (1.8-6.8); NEUTROPHILS % (AUTO) 94 % (42-75); PLATELET COUNT 993 x10^3/uL (130-400); RED BLOOD COUNT 2.97 x10^6/uL (4.38-5.82); RED CELL DISTRIBUTION WIDTH 17.2 % (9.4-14.8)
[2018-03-24] MEDS ORDERED: VECURONIUM 10 MG IVPush ONE (14:00)
[2018-03-24] MEDS ORDERED: FENTANYL PF 100 MCG/2ML IVPush ONE ×2 (14:00→14:45)
[2018-03-24] MEDS ORDERED: MIDAZOLAM 1 MG/ML, 5ML IVPush ONE ×2 (14:00→14:45)
[2018-03-24] MEDS: PROPOFOL 100 ML IV PRN (14:54)
[2018-03-24] MEDS: ATORVASTATIN 20 MG TABLET PO SCH (20:50)
[2018-03-25] MEDS: PROPOFOL 100 ML IV PRN ×2 (00:07→17:44)
[2018-03-25] MEDS: ALBUTEROL/IPRATROPIUM 2.5MG/0.5MG, 3 ML NPPB SCH ×6 (02:00→22:55)
[2018-03-25] MEDS: INSULIN LISPRO 100 UNITS/ML, PEN SQ-INSULIN SCH ×4 (03:04→20:28)
[2018-03-25 04:24] LABS: INTERNATIONAL NORMALIZED RATIO 1.15 (0.93-1.1); PROTHROMBIN TIME 11.8 Seconds (9.6-11.5)
[2018-03-25 04:26] LABS: MEAN CORPUSCULAR HEMOGLOBIN 28.9 pg (27.5-34.5); MEAN CORPUSCULAR HGB CONC 32.3 g/dL (33.2-36.2); MEAN CORPUSCULAR VOLUME 89.6 fL (81-97); MEAN PLATELET VOLUME 7.3 fL (7.4-10.4); PLATELET COUNT 731 x10^3/uL (130-400); RED BLOOD COUNT 2.73 x10^6/uL (4.38-5.82); RED CELL DISTRIBUTION WIDTH 17.1 % (9.4-14.8)
[2018-03-25 04:28] LABS: ANION GAP 8 mmol/L (5-15); CALCIUM 7.9 mg/dL (8.5-10.1); CHLORIDE 115 mmol/L (98-107); CREATININE 1.43 mg/dL (0.7-1.3)
[2018-03-25 04:54] LABS: BASOPHILS % (AUTO) 0 % (0-1); EOSINOPHILS % (AUTO) 0 % (1-7); LYMPHOCYTES # (AUTO) 0.37 x10^3/uL (1-3.4); LYMPHOCYTES % (AUTO) 1 % (22-44); MD SCAN; MONOCYTES # (AUTO) 0.63 x10^3/uL (0.2-0.8); MONOCYTES % (AUTO) 2 % (2-9); NEUTROPHILS # (AUTO) 28.46 x10^3/uL (1.8-6.8); NEUTROPHILS % (AUTO) 97 % (42-75)
[2018-03-25] MEDS: methylPREDNISolone SOD SUCC 125 MG/2 ML IVPush SCH ×4 (06:06→23:49)
[2018-03-25] MEDS: MAGNESIUM CHLORIDE 64 MG TABLET.DR PO SCH (09:00)
[2018-03-25] MEDS: CLOPIDOGREL 75 MG TABLET PO SCH (09:00)
[2018-03-25] MEDS: ENOXAPARIN 40 MG/0.4 ML SQ SCH (09:00)
[2018-03-25] MEDS: FAMOTIDINE 20 MG/2 ML IV SCH (09:02)
[2018-03-25] MEDS: SODIUM CHLORIDE FLUSH 10ML SYR IVF SCH ×2 (09:04→20:26)
[2018-03-25] MEDS: DOCUSATE 50 MG/5 ML, 10ML UDC NG SCH (09:05)
[2018-03-25] MEDS: MULTIVITAMIN LIQUID NG SCH (09:06)
[2018-03-25] MEDS: METOPROLOL TARTRATE 50 MG TABLET PO SCH ×2 (09:07→20:26)
[2018-03-25] MEDS: SODIUM CHLORIDE 0.9% 1,000 ML IV SCH (10:42)
[2018-03-25] MEDS: FENTANYL PF 100 MCG/2ML IVPush PRN (20:22)
[2018-03-25] MEDS: ATORVASTATIN 20 MG TABLET PO SCH (20:26)
[2018-03-25] MEDS: INSULIN GLARGINE 100 UNITS/ML, PEN SQ-INSULIN SCH (20:27)
[2018-03-26] MEDS: FENTANYL PF 100 MCG/2ML IVPush PRN ×2 (00:46→04:27)
[2018-03-26] MEDS: ALBUTEROL/IPRATROPIUM 2.5MG/0.5MG, 3 ML NPPB SCH ×3 (02:50→11:03)
[2018-03-26] MEDS: SODIUM CHLORIDE 0.9% 1,000 ML IV SCH (02:58)
[2018-03-26] MEDS: PROPOFOL 100 ML IV PRN ×2 (02:58→09:41)
[2018-03-26] MEDS: INSULIN LISPRO 100 UNITS/ML, PEN SQ-INSULIN SCH ×2 (03:03→09:46)
[2018-03-26 04:51] LABS: MEAN CORPUSCULAR HEMOGLOBIN 28.9 pg (27.5-34.5); MEAN CORPUSCULAR HGB CONC 32.4 g/dL (33.2-36.2); MEAN CORPUSCULAR VOLUME 89.4 fL (81-97); MEAN PLATELET VOLUME 7.7 fL (7.4-10.4); PLATELET COUNT 419 x10^3/uL (130-400); RED BLOOD COUNT 2.48 x10^6/uL (4.38-5.82); RED CELL DISTRIBUTION WIDTH 17.8 % (9.4-14.8)
[2018-03-26 05:00] LABS: ALBUMIN 1.2 g/dL (3.4-5.0); CALCIUM 7.1 mg/dL (8.5-10.1); CHLORIDE 117 mmol/L (98-107)
[2018-03-26 05:06] LABS: ALANINE AMINOTRANSFERASE 111 U/L (12-78); ALKALINE PHOSPHATASE 138 U/L (45-117); ANION GAP 10 mmol/L (5-15); BILIRUBIN,TOTAL 0.2 mg/dL (0.2-1.0); CREATININE 1.29 mg/dL (0.7-1.3); TOTAL PROTEIN 4.4 g/dL (6.4-8.2); TRIGLYCERIDES 91 mg/dL (50-200)
[2018-03-26 05:19] LABS: BASOPHILS % (AUTO) 0 % (0-1); EOSINOPHILS # (AUTO) 0.03 x10^3/uL (0-0.4); EOSINOPHILS % (AUTO) 0 % (1-7); LYMPHOCYTES # (AUTO) 0.93 x10^3/uL (1-3.4); LYMPHOCYTES % (AUTO) 3 % (22-44); MD SCAN; MONOCYTES # (AUTO) 0.76 x10^3/uL (0.2-0.8); MONOCYTES % (AUTO) 2 % (2-9); NEUTROPHILS % (AUTO) 95 % (42-75)
[2018-03-26] MEDS: methylPREDNISolone SOD SUCC 125 MG/2 ML IVPush SCH ×2 (06:27→12:23)
[2018-03-26] MEDS: ENOXAPARIN 40 MG/0.4 ML SQ SCH (09:00)
[2018-03-26] MEDS ORDERED: MAGNESIUM CARBONATE 54 MG/5 ML ORAL SOL NG SCH (09:00)
[2018-03-26] MEDS: CLOPIDOGREL 75 MG TABLET PO SCH (09:00)
[2018-03-26] MEDS: DOCUSATE 50 MG/5 ML, 10ML UDC NG SCH (09:41)
[2018-03-26] MEDS: FAMOTIDINE 20 MG/2 ML IV SCH (09:41)
[2018-03-26] MEDS: MULTIVITAMIN LIQUID NG SCH (09:41)
[2018-03-26] MEDS: METOPROLOL TARTRATE 50 MG TABLET PO SCH (09:42)
[2018-03-26] MEDS: INSULIN GLARGINE 100 UNITS/ML, PEN SQ-INSULIN SCH (09:45)
[2018-03-26] MEDS: SODIUM CHLORIDE FLUSH 10ML SYR IVF SCH (09:46)
[2018-03-26] MEDS ORDERED: INSULIN GLARGINE 100 UNITS/ML, PEN SQ-INSULIN ONE (11:00)
[2018-03-26] MEDS ORDERED: METH125V16 IVPush (11:10)
[2018-03-26] MEDS ORDERED: INSU100I11 SQ-INSULIN (11:10)
[2018-03-26] MEDS ORDERED: METO50TA82 PO (11:10)
[2018-03-26] MEDS ORDERED: INSU100I13 SQ-INSULIN (11:10)
[2018-03-26] MEDS ORDERED: INSULIN GLARGINE 100 UNITS/ML, PEN SQ-INSULIN SCH (21:00)
== END 2018-03-26 14:04 | DRG 3 ==
LOC: ED 17:18 → EDIP 17:19 → ED 17:52 → 3NE 18:23 → CCU 02-27 02:03 → ICU 03-04 11:24 → CCU 03-05 04:15 → 3NE 03-05 10:21 → CCU 03-14 06:30
PROVIDERS: ADMIT Internal Medicine Pulmonary Disease; ATTEND Internal Medicine Pulmonary Disease
PROC: B41D1ZZ Fluoroscopy of Aorta and Bilateral Lower Extremity Arteries using Low Osmolar Contrast (ICD-10-PCS; 2018-02-19)
PROC: 3E04317 Introduction of Other Thrombolytic into Central Vein, Percutaneous Approach (ICD-10-PCS; 2018-02-19)
PROC: 04CL3ZZ Extirpation of Matter from Left Femoral Artery, Percutaneous Approach (ICD-10-PCS; 2018-02-25)
PROC: 047L3Z1 Dilation of Left Femoral Artery using Drug-Coated Balloon, Percutaneous Approach (ICD-10-PCS; 2018-02-25)
PROC: 047H3DZ Dilation of Right External Iliac Artery with Intraluminal Device, Percutaneous Approach (ICD-10-PCS; 2018-02-25)
PROC: 0JBR0ZZ Excision of Left Foot Subcutaneous Tissue and Fascia, Open Approach (ICD-10-PCS; principal; 2018-02-26)
PROC: 0JBQ0ZZ Excision of Right Foot Subcutaneous Tissue and Fascia, Open Approach (ICD-10-PCS; 2018-02-26)
PROC: 0B9C8ZX Drainage of Right Upper Lung Lobe, Via Natural or Artificial Opening Endoscopic, Diagnostic (ICD-10-PCS; 2018-02-27)
PROC: 0BH17EZ Insertion of Endotracheal Airway into Trachea, Via Natural or Artificial Opening (ICD-10-PCS; 2018-02-27)
PROC: 5A1945Z Respiratory Ventilation, 24-96 Consecutive Hours (ICD-10-PCS; 2018-02-27)
PROC: 0B9C8ZX Drainage of Right Upper Lung Lobe, Via Natural or Artificial Opening Endoscopic, Diagnostic (ICD-10-PCS; 2018-02-27)
PROC: 0B9J8ZX Drainage of Left Lower Lung Lobe, Via Natural or Artificial Opening Endoscopic, Diagnostic (ICD-10-PCS; 2018-02-27)
PROC: 0B9F8ZX Drainage of Right Lower Lung Lobe, Via Natural or Artificial Opening Endoscopic, Diagnostic (ICD-10-PCS; 2018-02-27)
PROC: 5A1955Z Respiratory Ventilation, Greater than 96 Consecutive Hours (ICD-10-PCS; 2018-03-14)
PROC: 02HV33Z Insertion of Infusion Device into Superior Vena Cava, Percutaneous Approach (ICD-10-PCS; 2018-03-14)
PROC: B548ZZA Ultrasonography of Superior Vena Cava, Guidance (ICD-10-PCS; 2018-03-14)
PROC: 0T9B70Z Drainage of Bladder with Drainage Device, Via Natural or Artificial Opening (ICD-10-PCS; 2018-03-14)
PROC: 0B9F8ZX Drainage of Right Lower Lung Lobe, Via Natural or Artificial Opening Endoscopic, Diagnostic (ICD-10-PCS; 2018-03-14)
PROC: 0T9B70Z Drainage of Bladder with Drainage Device, Via Natural or Artificial Opening (ICD-10-PCS; 2018-03-20)
PROC: 0B113F4 Bypass Trachea to Cutaneous with Tracheostomy Device, Percutaneous Approach (ICD-10-PCS; 2018-03-24)
DX: I70.203 Unspecified atherosclerosis of native arteries of extremities, bilateral legs (principal); B37.1 Pulmonary candidiasis; E43 Unspecified severe protein-calorie malnutrition; J81.0 Acute pulmonary edema; G93.40 Encephalopathy, unspecified; N17.0 Acute kidney failure with tubular necrosis; J96.01 Acute respiratory failure with hypoxia; J90 Pleural effusion, not elsewhere classified; L97.419 Non-pressure chronic ulcer of right heel and midfoot with unspecified severity; Z99.11 Dependence on respirator [ventilator] status; E11.51 Type 2 diabetes mellitus with diabetic peripheral angiopathy without gangrene; E11.42 Type 2 diabetes mellitus with diabetic polyneuropathy; E11.621 Type 2 diabetes mellitus with foot ulcer; E11.622 Type 2 diabetes mellitus with other skin ulcer; D63.8 Anemia in other chronic diseases classified elsewhere; E11.65 Type 2 diabetes mellitus with hyperglycemia; E78.5 Hyperlipidemia, unspecified; G89.29 Other chronic pain; I13.10 Hypertensive heart and chronic kidney disease without heart failure, with stage 1 through stage 4 chronic kidney disease, or unspecified chronic kidney disease; I70.0 Atherosclerosis of aorta; I99.8 Other disorder of circulatory system; J44.9 Chronic obstructive pulmonary disease, unspecified; K21.9 Gastro-esophageal reflux disease without esophagitis; E86.9 Volume depletion, unspecified; L97.529 Non-pressure chronic ulcer of other part of left foot with unspecified severity; N18.9 Chronic kidney disease, unspecified; Z68.26 Body mass index [BMI] 26.0-26.9, adult; Z51.5 Encounter for palliative care; Z74.01 Bed confinement status; Z79.02 Long term (current) use of antithrombotics/antiplatelets; Z82.3 Family history of stroke; Z79.4 Long term (current) use of insulin; Z87.01 Personal history of pneumonia (recurrent); Z87.891 Personal history of nicotine dependence
CPT/HCPCS: 31624; 36415; 36569; 36600; 37221; 37225; 70551; 71045; 71260; 71275; 74018; 74177; 75630; 76700; 76937; 77001; 78806; 80048; 80053; 80076; 80202; 81001; 81003; 82040; 82140; 82570; 82803; 82805; 82962; 83735; 83880; 84100; 84145; 84300; 84478; 84484; 85014; 85018; 85025; 85520; 85610; 85651; 85730; 86140; 87015; 87040; 87070; 87081; 87086; 87102; 87116; 87186; 87205; 87206; 87252; 87254; 87324; 87633; 88112; 88184; 88185; 88305; 88312; 93005; 93306; 94002; 94003; 94150; 94640; 96365; 96367; 96368; 99156; 99157; C1725; C1894; C2623; J0456; J1644; J1650; J1940; J2248; J2250; J2543; J2704; J2720; J2997; J3010; J3370; J3490; J7620; Q9966; Q9967; A9547; C1714; C1751; C1760; C1769; C1773; C1874; C1884; C9898; J0330; J1815; J2270; J2310; J2920; J2930; J3475; J7030; J7040; J7050; J7120; S0028